=== PATIENT | female | born 1945 | race Caucasian/White ===

== ENCOUNTER 2020-09-01 19:40 | Observation (INO) | payer MEDICARE, BC, SELFPAY ==
[2020-09-01] VITALS (7 sets, daily range): BP systolic 129–153; BP diastolic 67–88; PULSE 87–95; RESP 16–20; TEMP 36.2; O2SAT 95–100
--- NOTE | ~2020-09-01 | CT_ITS ---
EXAMINATION: CT lumbar spine wo con DATE: 09/01/2020 20:13 INDICATION: Low back pain TECHNIQUE: Computed tomography (CT) of the lumbar spine was performed without intravenous contrast. T he dose-length product (DLP) was 1329.96 mGy-cm. Iterative reconstruction was used. COMPARISON: MRI, 05/10/2019 FINDINGS: There is moderate to severe loss of intervertebral disc space height throughout the lumbar spine. The vertebral body heights are maintained. There are 3 mm of chronic anterolisthesis of L5 on S1. There is no fracture. There is moderate to severe facet osteoarthritis throughout the lumbar spin e. The paravertebral soft tissues are normal. Although limited by motion artifact, there appears to b e a rim calcification in left upper quadrant which could reflect prior left adrenal trauma. IMPRESSION: 1. Severe lumbar spondylosis without acute findings or significant interval change. Reviewed, dictated and finalized at location A. IMPRESSION: 1. Severe lumbar spondylosis without acute findings or significant interval alis nge.
--- NOTE | ~2020-09-01 | XR_ITS ---
EXAMINATION: XR hip RT 2V w AP pelvis INDICATION: Right hip pain TECHNIQUE: AP view of the pelvis and two views of the right hip are obtained. COMPARISON: 07/20/2016 FINDINGS: No fracture is identified. There is advanced osteoarthritis of the right hip with interval worsening since the comparison examination. There is moderate left hip osteoarthritis. Right nephroli thiasis is noted. A moderate volume of colonic stool is present. IMPRESSION: 1. Advanced osteoarthritis of the right hip, with interval worsening, but no acute abnormality identi fied. Reviewed, dictated and finalized at location A. IMPRESSION: 1. Advanced osteoarthritis of the right hip, with interval worsening, but no ac ho-chunk abnormality identified.
--- NOTE | 2020-09-01 19:54 | ED.LOWEXIN ---
HPI - Extremity Injury (Lower) General Chief Complaint: Extremity Injury, Lower Stated Complaint: r hip pain Time Seen by Provider: 09/01/20 19:41 Source: RN notes reviewed History of Present Illness HPI Narrative: Patient presents emergency department from home for lower back pain. Patient states that she has a history of a bag right hip that she is followed by Dr. Calhoun for orthopedics and is scheduled to get a hip replacement. She states that she has had progressive pain in the right hip with pain coming down her lower back into her buttocks and down her right leg with pain described as burning. She states he is also began to notice pain in her left leg. She states that secondary to this today she was unable to get up and ambulate. She states pain is in the bilateral lower back and she does feel like she is favoring her left leg because the right leg is been hurting so much. She is on diclofenac and gabapentin at home with no relief which she has been taking. She denies any new trauma or injury she denies any fevers or chills chest pain shortness breath abdominal pain nausea or vomiting numbness or tingling of the extremities bowel or bladder incontinence or any other symptoms. Related Data Home Medications Medication Instructions Recorded Confirmed metronidazole 1 % topical gel 1 applic TOPICAL DAILY 12/16/19 Allergies Allergy/AdvReac Type Severity Reaction Status Date / Time No Known Allergies Allergy Unknown Verified 09/01/20 14:40 Review of Systems Review of Systems: Narrative: Gen.: Denies fevers or chills ENT: Denies congestion Respiratory: Denies shortness of breath or cough CV: Denies chest pain or palpitations GI: Denies abdominal pain nausea, emesis or diarrhea denies bowel or bladder incontinence Musculoskeletal: See HPI Neuro: Denies numbness, tingling, weakness or focal weakness Skin: Denies rash Except as documented, all other systems reviewed and negative PMF Past Medical History Medical History Colon polyp Essential (primary) hypertension H/O: gout Hypothyroidism, unspecified Lumbar radiculopathy Lymphedema Pre-diabetes Primary osteoarthritis of right hip Social History Social History Smoking status: Never smoker Second hand tobacco smoke exposure: No Alcohol intake: never Gender identity (if verbalized by the patient): Female Sexual Orientation (if Verbalized by the Patient): Straight or Heterosexual Exam Narrative: Exam Narrative: APPEARANCE: No acute distress, nontoxic, resting in bed EYES: EOMI HEENT: Normocephalic, atraumatic, OMM RESPIRATORY: No respiratory distress Clear to auscultation bilaterally with no rhonchi wheezing or rales. CARDIOVASCULAR: Regular rate and rhythm without murmurs rubs or gallops. ABDOMINAL: Soft, nontender, nondistended, no rebound or guarding MUSCULOSKELETAl: Moves all extremities. No clubbing, cyanosis 2+ edema the bilateral lower extremities, bilateral dorsalis pedis pulse 2+ Back: No midline thoracic lumbar tenderness palpation, tender palpation bilateral paravertebral muscles L3-5 and bilateral piriformis region NEURO: Awake and alert. Following commands, speech normal, no focal deficits muscle strength 5 out of 5 in the bilateral lower extremities SKIN:: Warm, dry. No rashes lesions or abrasions PSYCHIATRIC: Normal affect/mood, Course Course Emergency Course: Patient is feeling better following medication able to get up and ambulate in ED with no difficulty Discussed with patient results of workup and diagnosis. Discussed need for follow-up with primary care, proper use of medication, and reasons to return to the emergency department. Patient understands and agrees to current treatment plan patient is scheduled to see Dr. Ledesma tomorrow we will prescribe short course of steroids and [place] for pain. The patient does live at home by
[2020-09-01] MEDS: methylPREDNISolone SOD SUCC 125 MG VIAL IV PUSH (20:48)
[2020-09-01] MEDS: MORPHINE SULFATE (*CRX) 2 MG/ML INJ IV PUSH (21:51)
--- NOTE | 2020-09-01 23:05 | PC.NURSE ---
Patient states she is unable to walk and is requesting rehab. EDP [facility] notified.
--- NOTE | 2020-09-02 00:30 | ADMGEN ---
This patient, Emani Simms, was admitted to 3 Med Surg Room 315-01. Patient/family oriented to hospital policies and general routines including ID bracelet, bed and alarms, visiting hours, pain management, procedures, bathroom and other care routines, personal items, smoking policy, room service/diet, and visiting hours. Valuables list has been completed. Information on how to activate the Rapid Response Team has been discussed. Patient/Family are encouraged to report perceived risks to care and to ask questions if they do not understand what they are told or what they should do.
[2020-09-02 00:35] VITALS: BP 129/81; PULSE 95; RESP 20; TEMP 37.1; O2SAT 97; BMI 42.0
[2020-09-02 05:46] VITALS: BP 120/69; PULSE 93; RESP 16; TEMP 36.4; O2SAT 95
[2020-09-02 06:43] LABS: Basophils Percent Auto 0.1 % (0.2-1.2); Eosinophils Percent Auto 0.1 % (0-4.4); Hematocrit 39.1 % (37.0-47.0); Hemoglobin 12.9 g/dL (12.0-15.0); Immature Granulocyte Absolute 0.09 K/mm3 (0.00-0.031); Immature Granulocyte Percent A 0.8 % (0-0.5); Lymphocytes Absolute Auto 1.07 K/mm3 (0.9-3.2); Lymphocytes Percent Auto 9.6 % (18.3-44.2); Mean Corpuscular Hemoglobin 30.6 pg (26-34); Mean Corpuscular Volume 92.7 fl (80-100); Mean Platelet Volume 9.5 fl (7.4-10.4); Monocytes Absolute Auto 0.1 K/mm3 (0.1-0.6); Monocytes Percent Auto 0.6 % (2.6-8.5); Neutrophils Absolute Auto 9.9 K/mm3 (1.3-6.7); Neutrophils Percent Auto 88.8 % (45.5-73.1); Platelet Count Result 256 k/mm3 (150-375); Red Blood Count 4.22 M/mm3 (4.2-5.4); Red Cell Distribution Width 13.2 % (11.5-14.5); White Blood Count 11.2 K/mm3 (4.5-10.0)
[2020-09-02 06:53] LABS: Anion Gap 8 mmol/L (8-16); Blood Urea Nitrogen 19 mg/dL (7-17); Calcium 9.8 mg/dL (8.4-10.2); Carbon Dioxide 31 mmol/L (22-30); Chloride 101 mmol/L (98-107); Estimated CRCL calculation 65 ml/min; Estimated Glomerular Filt Rate > 60; Glucose 159 mg/dL (65-105); Potassium 4.5 mmol/L (3.4-5.0); Sodium 140 mmol/L (137-145)
[2020-09-02 14:00] VITALS: BP 104/56; PULSE 99; RESP 20; TEMP 37.3; O2SAT 96
[2020-09-02] MEDS: HYDROcodone/acetaminophen (*CRX) 7.5-325 MG TABLET 1 TAB PO (16:31)
--- NOTE | 2020-09-02 16:54 | PM.IMHP ---
H&P: HPI History of Present Illness Date/Time: 09/02/20 16:54 Chief complaint: Intractable back pain Narrative: Emani Simms is a 74 year old female admitted for intractable back and R hip pain. Pt fell at home was bearing weight on her left hip which suddenly gave way. He right hip is bone or bone and she is due for surgery once she loses more weight, under Dr Cox. Pt is having severe pain in her right hip which varies from 10/10 to zero depending on if she is putting weight on it. Pt is also receiving back injections from Dr Humphrey in [facility]. Other medical problems prediabetes and hypothyoidism and gout. Review of Systems Review of Systems: All systems reviewed & are unremarkable except as noted in HPI and below Constitutional: Constitutional: Denies headache(s) and Denies malaise Cardiovascular: Cardiovascular: Denies no additional cardiovascular complaints Respiratory: Respiratory: Denies no additional respiratory complaints Gastrointestinal: Gastrointestinal: Denies no additional gastrointestinal complaints Musculoskeletal: Musculoskeletal: Reports back pain Comments: R hip pain Neurologic: Denies confusion, Denies dizziness, Denies syncope, Denies headache(s), Denies paresthesias and Denies weakness Psychiatric: Psychiatric: Denies no additional psychiatric complaints PMFSH Past Medical History Medical History Colon polyp Essential (primary) hypertension H/O: gout Hypothyroidism, unspecified Lumbar radiculopathy Lymphedema Pre-diabetes Primary osteoarthritis of right hip Surgical History Surgical History H/O colonoscopy with polypectomy (~06/2018) Family History Family History Mother Carcinoma of colon Mother Diabetes mellitus Mother Family history of arthritis Father Malignant neoplasm of prostate Sibling Hypertension Mother Hypertension Other Cerebrovascular accident Family history of coronary artery disease Family history of gout Family history of heart disease in male family member before age 55 Family history of malignant neoplasm Family history of tuberculosis Social History Social History Smoking status: Never smoker Second hand tobacco smoke exposure: No Alcohol intake: current Substance use: never Gender identity (if verbalized by the patient): Female Sexual Orientation (if Verbalized by the Patient): Straight or Heterosexual Spiritual care concerns: No Meds Home Medications and Allergies Home Medications Medication Instructions Recorded Confirmed Type levothyroxine 100 mcg tablet 100 mcg PO DAILY #90 tablet 10/13/19 09/02/20 Rx nystatin 100,000 unit/gram topical 1 applic TOPICAL BID #60 gm 12/16/19 09/02/20 Rx powder losartan 50 mg tablet 50 mg PO DAILY #90 tablet 08/05/20 09/02/20 Rx allopurinol 100 mg PO DAILY 09/02/20 09/02/20 History diclofenac sodium 50 mg PO BID 09/02/20 09/02/20 History gabapentin 600 mg PO HS 09/02/20 09/02/20 History [id number]-[id number]-FA-vit K 1 tablet PO DAILY 09/02/20 09/02/20 History [Adults Multivitamin] omega-3 fatty acids [Fish Oil] 1,000 mg PO DAILY 09/02/20 09/02/20 History Allergies Allergy/AdvReac Type Severity Reaction Status Date / Time No Known Allergies Allergy Unknown Verified 09/01/20 14:40 Vital Signs Vital Signs - 24 hr 09/01/20 19:50 09/01/20 21:01 09/01/20 21:18 Temperature 36.2 C L Pulse Rate 95 90 Respiratory Rate 16 16 Blood Pressure 153/74 H 148/74 H Pulse Oximetry 95 100 09/01/20 22:21 09/01/20 22:49 09/01/20 23:55 Temperature 36.2 C L Pulse Rate 92 87 Respiratory Rate 18 16 Blood Pressure 139/84 149/88 H Pulse Oximetry 98 100 09/02/20 00:35 09/02/20 05:46 09/02/20 14:00 Temperature 37.1 C 36.4 C L 37.3 C Pulse
[2020-09-02] MEDS: DICLOFENAC SOD 25 MG TABLET.EC 50 MG PO (16:56)
[2020-09-02] MEDS: TOLNAFTATE 1% POWDER 45 GM BTL 1 APPLIC TOPICAL (20:29)
[2020-09-02] MEDS: GABAPENTIN 300 MG CAPSULE 600 MG PO (20:29)
[2020-09-02 22:00] VITALS: BP 100/54; PULSE 94; RESP 16; TEMP 37; O2SAT 95
[2020-09-03] MEDS: HYDROcodone/acetaminophen (*CRX) 7.5-325 MG TABLET 1 TAB PO (03:35)
[2020-09-03] MEDS: LEVOTHYROXINE SODIUM 100 MCG TABLET PO (05:44)
[2020-09-03] MEDS: methylPREDNISolone (MEDROL) DOSEPACK 4 MG TABLETS PO ×2 (05:44→11:39)
[2020-09-03 06:00] VITALS: BP 98/58; PULSE 76; RESP 20; TEMP 36.6; O2SAT 94
[2020-09-03] MEDS: DICLOFENAC SOD 25 MG TABLET.EC 50 MG PO (08:34)
[2020-09-03] MEDS: ENOXAPARIN 40 MG/0.4 ML SYRINGE SUB-Q (08:34)
[2020-09-03] MEDS: allopurinoL 100 MG TABLET PO (08:34)
[2020-09-03] MEDS: LOSARTAN POTASSIUM 50 MG TABLET PO (08:35)
[2020-09-03] MEDS: OMEGA 3 POLYUNSAT FATTY ACIDS 1 GM CAP PO (08:35)
[2020-09-03] MEDS: MULTIVITAMINS /C LUTEIN (CENTRUM SILVER) TABLET *BKC 1 TAB PO (08:35)
[2020-09-03] MEDS: TOLNAFTATE 1% POWDER 45 GM BTL 1 APPLIC TOPICAL (08:36)
--- NOTE | 2020-09-03 11:09 | PM.DS ---
DS: Admitting Diagnosis Admitting Diagnosis Admitting Diagnosis: Intractable back pain DS: Discharge Diagnosis Discharge Diagnosis (1) Low back pain: Code(s): M54.5 - Low back pain Status: Acute Assessment and Plan: Pt is on norco, diclofenac and medrol dose pack. Pt was given morphine in the hospital for severe pain Lumbar ct spine shows severe lumbar spondylosis (2) Acute pain of right hip: Code(s): M25.551 - Pain in right hip Status: Acute Assessment and Plan: See above. Pt to have physical theraphy in the hospital, did well stable for discharge. hip xray shows severe OA (3) Pre-diabetes: Code(s): R73.03 - Prediabetes Status: Acute Assessment and Plan: Pt is on oral steroids can raise glucose (4) Hypothyroidism, unspecified: Code(s): E03.9 - Hypothyroidism, unspecified Status: Acute Assessment and Plan: Continue levothyroxine (5) Essential (primary) hypertension: Code(s): I10 - Essential (primary) hypertension Status: Acute Assessment and Plan: Continue losatan (6) H/O: gout: Code(s): Z87.39 - Personal history of other diseases of the musculoskeletal system and connective tissue Status: Inactive DS: Summary Time Spent with Patient Time attestation: Total time spent providing and/or coordinating discharge services:40 minutes on day of dischrage Exam Const: General: other (obese) HENMT: Head: normocephalic Eyes: General: appearance normal, both eyes and all related structures Pupils: Equal, round and reactive pupils present Neck: Neck: supple Chest: Chest palpation & inspection: normal inspection of the chest Resp: Effort & Inspection: normal respiratory effort Auscultation: clear to auscultation bilaterally Cardio: Jugular venous distension: no JVD Rhythm: regular rhythm Heart sounds: S1 normal heart sound present and S2 normal heart sound present GI: Inspection: normal to inspection Auscultation: normal bowel sounds : General: Yes no CVA tenderness Back/Spine/Pelvis: Back: no CVA tenderness Skin: General skin exam: normal color and dry skin Neuro: General: No confusion Cranial nerves: Yes CN's II-XII intact bilaterally and Yes Equal, round and reactive pupils present Cognition (Neuro): normal cognition Speech: normal speech Extrem: Other: TTP over R hip limited ROM, not assess standing good pulses good sensation Psych: Appearance: grossly normal Mental Status: mental status grossly normal Discharge Plan Discharge Attending physician on discharge: Dayan Nguyen Discharging Clinician: Dayan Nguyen Anticipated Discharge Date/Time: 09/03/20 11:04 Patient Disposition: Home, Self-Care Activity: as tolerated Diet: heart healthy and low fat Discharge Instructions: Pt to follow with Dr COHEN orthopedics in 1 months time Patient Instructions: Antibiotic Form, Pain Management (DC) Stand Alone Forms: General Discharge Information Follow-up/Referrals: lamar cohen [Other] (FOLLOW UP IN 1 monthstime please make apt with his office before pt is discharged ) Fabienne Beasley MD [Primary Care Provider] - Discharge Medications: New hydrocodone-acetaminophen 7.5-325 mg Tablet 1 tab PO Q6H PRN (Reason: Pain Rated 4-6) Qty: 20 RF: 0 methylprednisolone 4 mg Tablets,Dose Pack 8 mg PO 0630 Qty: 21 RF: 0 Continued nystatin 100,000 unit/gram powder 1 applic TOPICAL BID Qty: 60 RF: 3 allopurinol 100 mg tablet 100 mg PO DAILY RF: 0 gabapentin 300 mg capsule 600 mg PO HS RF: 0 diclofenac sodium 50 mg tablet,delayed release (DR/EC) 50 mg PO BID RF: 0 Fish Oil Capsule 1,000 mg PO DAILY RF: 0 Adults Multivitamin 18 mg iron-400 mcg-25 mcg Tablet 1 tablet PO DAILY RF: 0 levothyroxine 100 mcg tablet 100 mcg PO DAILY Qty: 90 RF: 3 losartan 50 mg tablet 50 mg PO DAILY Qty: 90 RF: 0 Date of
== END 2020-09-03 14:10 | disposition home or self-care (01) ==
LOC: ANHED 23:11 → ANH3MEDSUR 09-02 04:46
PROVIDERS: Admitting Provider Internal Medicine; Emergency Provider Emergency Medicine; PCP Family Medicine; Visit Provider Family Medicine
DX: M54.5 Low back pain (principal); M25.551 Pain in right hip; R73.03 Prediabetes; E03.9 Hypothyroidism, unspecified; I10 Essential (primary) hypertension; M10.9 Gout, unspecified; M16.11 Unilateral primary osteoarthritis, right hip; M47.816 Spondylosis without myelopathy or radiculopathy, lumbar region
CPT/HCPCS: 36415; 72131; 73502; 80048; 85025; 96372; 96374; 96375; 97161; 97165; 99285; A9270; G0378; J0131; J1650; J2270; J2930

== ENCOUNTER → 2020-09-30 16:50 | Outpatient (CLI) | payer MEDICARE, BC, SELFPAY ==
--- NOTE | ~2020-09-30 | MR_ITS ---
EXAMINATION: MR lumbar spine wo con DATE: 09/30/2020 17:51 INDICATION: Low back pain. Right-sided sciatica. TECHNIQUE: Magnetic resonance imaging (MRI) of the lumbar spine was performed without intravenous con trast. Sequences included sagittal T2-weighted FSE, sagittal T2-weighted FS FSE, sagittal T1-weighted FSE, and axial T2-weighted FSE. COMPARISON: Lumbar spine MRI 05/10/2019 FINDINGS: There is 12 degrees levoscoliosis of lumbar spine. There is 3 mm anterolisthesis of L5 on S 1. There is mild chronic anterior wedging of T11 vertebral body. There is moderately decreased disc h eight at L1-L2 and severely decreased disc height from L2-L3 through L5-S1. The distal spinal cord si gnal intensity is normal. The conus medullaris is at L1-L2. The following disc levels are specificall y discussed: L1-L2: The disc is bulging and has an annular fissure. There is severe right and mild left facet join t osteoarthritis. There is moderate bilateral neural foraminal stenosis. There is mild central canal stenosis. L2-L3: The disc is bulging and has an annular fissure. There is severe bilateral facet joint osteoart hritis. There is moderate right and mild left neural foraminal stenosis. There is mild central canal stenosis. L3-L4: The disc is bulging and has an annular fissure. There is severe bilateral facet joint osteoart hritis. There is moderate bilateral neural foraminal stenosis. There is severe central canal stenosis . L4-L5: The disc is bulging and has an annular fissure. There is severe bilateral facet joint osteoart hritis. There is moderate bilateral neural foraminal stenosis. There is mild central canal stenosis. L5-S1: The disc is bulging and has an annular fissure. There is severe bilateral facet joint osteoart hritis. There is mild right and moderate left neural foraminal stenosis. There is mild central canal stenosis. IMPRESSION: 1. Severe lumbar spondylosis, worsened from 05/10/2019. Reviewed, dictated and finalized at location A. TS SIFTER
== END ==
PROVIDERS: PCP Family Medicine; Visit Provider Orthopaedic Surgery
DX: M47.896 Other spondylosis, lumbar region (principal)
CPT/HCPCS: 72148

== ENCOUNTER 2021-02-16 11:50 | Outpatient (RCR) | payer OTHER, MEDICARE, BC, SELFPAY ==
[2021-02-16 12:30] VITALS: BMI 41.7
== END 2021-05-02 08:06 | disposition home or self-care (01) ==
LOC: ANHWOC 11:50
PROVIDERS: PCP Family Medicine; Visit Provider Surgery
DX: T81.31XD Disruption of external operation (surgical) wound, not elsewhere classified, subsequent encounter (principal)
CPT/HCPCS: 99213; G0463

== ENCOUNTER → 2022-06-16 07:06 | Outpatient (CLI) | payer MEDICARE, BC, SELFPAY ==
--- NOTE | ~2022-06-16 | XR_ITS ---
XR shoulder RT min 2V DATE: 06/16/2022 08:10 INDICATION: Right shoulder pain TECHNIQUE: 4 views COMPARISON: None FINDINGS: There is severe joint space narrowing and spurring of the right glenohumeral joint. Mild degenerative spurring at the right acromioclavicular joint. No fracture, dislocation, periosteal reaction or bone destruction. IMPRESSION: Severe right glenohumeral osteoarthritis Mild degenerative change at right acromioclavicular joint Reviewed, dictated and finalized at location B.
--- NOTE | ~2022-06-16 | XR_ITS ---
XR clavicle RT DATE: 06/16/2022 08:10 INDICATION: Pain TECHNIQUE: AP and angled AP views COMPARISON: None FINDINGS: There is prominent joint space narrowing and severe spurring at the glenohumeral joint cons istent with severe osteoarthritis. There is mild degenerative spurring at the right acromioclavicular joint. No fracture or dislocation, periosteal reaction or bone destruction of the right clavicle. IMPRESSION: Mild degenerative change right acromioclavicular joint Severe osteoarthritic change and spurring at the right glenohumeral joint Reviewed, dictated and finalized at location B.
== END ==
PROVIDERS: PCP Family Medicine; Visit Provider Family Medicine
DX: M95.8 Other specified acquired deformities of musculoskeletal system (principal); M19.011 Primary osteoarthritis, right shoulder
CPT/HCPCS: 73000; 73030

== ENCOUNTER 2024-04-29 10:31 | Outpatient (CLI) | payer MEDICARE, BC, SELFPAY ==
--- NOTE | ~2024-04-29 | XR_ITS ---
Left Shoulder Technique: AP and scapular Y views were obtained. Clinical History: Pain Findings: No fracture or dislocation is seen. Osseous alignment is anatomic. There is advanced glenoh umeral joint degenerative change, joint space narrowing, subchondral cystic change/sclerosis, and lar ge inferomedial humeral head osteophyte. There is mild AC joint degenerative change. Soft tissues are unremarkable. Impression: Severe glenohumeral joint degenerative change. Mild AC joint degenerative change. Reviewed, dictated and finalized at location . Impression: Severe glenohumeral joint degenerative change. Mild AC joint degenerative change.
--- NOTE | ~2024-04-29 | XR_ITS ---
Right Shoulder Technique: AP and scapular Y views were obtained. Clinical History: Pain Findings: No fracture or dislocation is seen. There is severe glenohumeral joint degenerative change. There is marked joint space narrowing with reactive sclerosis and large inferomedial humeral head os teophyte. There is mild AC joint degenerative change.. Soft tissues are unremarkable. Impression: Severe glenohumeral joint degenerative change, as detailed above. Mild AC joint degenerative change. Reviewed, dictated and finalized at location M. Impression: Severe glenohumeral joint degenerative change, as detailed above. Mild AC joint degenerative change.
== END 2024-04-29 10:32 | disposition home or self-care (01) ==
LOC: ANHIMG 10:33
PROVIDERS: PCP Family Medicine; Visit Provider Orthopaedic Surgery
DX: M19.012 Primary osteoarthritis, left shoulder (principal); M19.011 Primary osteoarthritis, right shoulder
CPT/HCPCS: 73030

== ENCOUNTER 2024-05-21 14:59 | Outpatient (CLI) | payer MEDICARE, BC, SELFPAY ==
--- NOTE | ~2024-05-21 | XR_ITS ---
XR hip RT 2V w AP pelvis Ordering provider: OSWALD Finn History: . M16.11 - Unilateral primary osteoarthritis, right hip . Comparison: September 01, 2020 FINDINGS: BONES: No acute fracture or dislocation. Sclerotic changes in the left impression, left femur and lef t iliac vein. HIP JOINT SPACES: Severe osteoarthritic changes bilaterally more on the right side. SACROILIAC JOINT SPACES/LUMBAR SPINE: Bilateral sacroiliacs. Mild degenerative changes of the visuali zed lower lumbar spine. PUBIC SYMPHYSIS: Normal. SOFT TISSUES: Normal. IMPRESSION: No acute osseous abnormality pelvis and right hip. Severe bilateral hip osteoarthritic changes more on the right side. Sclerotic changes in the bones and the left side of the pelvis and left femur. Reviewed, dictated and finalized at location A.
== END 2024-05-21 15:00 | disposition home or self-care (01) ==
PROVIDERS: PCP Family Medicine; Visit Provider Physician Assistant Surgical
DX: M16.11 Unilateral primary osteoarthritis, right hip (principal)
CPT/HCPCS: 73502

== ENCOUNTER 2025-03-18 07:52 | Outpatient (CLI) | payer MEDICARE, BC, SELFPAY ==
--- NOTE | 2025-03-18 07:55 | ECHO_ITS ---
Patient Info Name: Emani Simms Age: 79 years : 1945 Gender: Female Ht: 60 in Wt: 197 lbs BSA: 1.99 m2 HR: 59 bpm BP: 129 / 82 mmHg Heart Rhythm: Atrial Fibrillation Technical Quality: Fair Exam Date: 03/18/2025 8:12 AM Exam Location: Echo Lab Patient Status: Outpatient Admit Date: 03/18/2025 Staff Ordering Physician: Fabienne Beasley MD Manager Foreign: Linda Del Valle RDCS Attending Provider: Fabienne Beasley MD Referring Physician: Ramos SUN; Exam Type: CA echo doppler color flow Study Info Indications I48.91 - Unspecified atrial fibrillation Complete two-dimensional, color flow and Doppler transthoracic echocardiogram is performed. Summary 1. Complete two-dimensional, color flow and Doppler transthoracic echocardiogram is performed. 2. Left ventricular chamber dimension is normal. 3. Left ventricular systolic function is normal, estimated at 60-65%. 4. There is mild concentric increased left ventricular wall thickness. 5. The left ventricular diastolic function is normal. 6. E/e' 9 is minimally elevated. 7. Atrial fibrillation. 8. Right ventricular chamber dimension is mildly enlarged. 9. Left atrial chamber dimension is moderately enlarged. 10. There is mild aortic valve sclerosis. 11. There is mild mitral valve regurgitation. 12. There is trace tricuspid valve regurgitation. 13. No pulmonary hypertension, estimated pulmonary arterial systolic pressure is 30 mmHg. 14. There is trace pulmonic regurgitation. Left Ventricle E/e' 9 is minimally elevated. Atrial fibrillation. Left ventricular chamber dimension is normal. Left ventricular systolic function is normal, estimated at 60-65%. There is mild concentric increased left ventricular wall thickness. The left ventricular diastolic function is normal. Right Ventricle Right ventricular systolic function is normal and with normal TAPSE 2.1 cm. Right ventricular chamber dimension is mildly enlarged. Left Atria Left atrial chamber dimension is moderately enlarged. Right Atria Right atrial chamber dimension is normal. Aortic Valve The aortic valve is trileaflet. There is mild aortic valve sclerosis. There is no aortic valve stenosis. There is no aortic valve regurgitation. Pulmonic Valve There is trace pulmonic regurgitation. Mitral Valve There is no mitral valve stenosis. There is mild mitral valve regurgitation. Tricuspid Valve There is trace tricuspid valve regurgitation. No pulmonary hypertension, estimated pulmonary arterial systolic pressure is 30 mmHg. Pericardium/Pleural There is no pericardial effusion. Inferior Vena Cava Normal inferior vena cava with >50% collapse upon inspiration consistent with normal right atrial pressure, 5 mmHg. Aorta The aortic root size at the sinus of Valsalva is normal. Left Ventricular Outflow Tract Name Value Normal LVOT 2D LVOT Diameter 2.2 cm LVOT Doppler LVOT Peak Gradient 2 mmHg LVOT Mean Gradient 1 mmHg LVOT VTI 15 cm LVOT VTI/AV VTI Ratio 0.6 LVOT Stroke Volume 57 ml LVOT CO 12.5 l/min LVOT CI 6.3 l/min/m2 Pulmonic Valve Name Value Normal PV Doppler PV Peak Gradient 2 mmHg Mitral Valve Name Value Normal MV Doppler MV Decel Clayton 650 cm/s2 MV PHT 41 ms MV Area (PHT) 5.3 cm2 4.0-5.0 MV Diastolic Function MV E Peak Velocity 93 cm/s MV A Peak Velocity 2 cm/s MV E/A 44.6 MV Decel Time 143 ms MV Annular TDI MV E/e' (Septal) 11.5 <=8.0 MV E/e' (Lateral) 7.7 <=8.0 MV E/e' (Average) 9.6 Tricuspid Valve Name Value Normal TV Regurgitation Doppler TR Peak Velocity 250 cm/s TR Peak Gradient 25 mmHg Estimated PAP/RSVP RA Pressure 5 mmHg <=5 PA Systolic Pressure 30 mmHg <36 RV Systolic Pressure 30 mmHg <36 Aorta Name Value Normal Ascending Aorta Ao Root Diameter (MM) 3.4 cm Ao Root Diam Index (MM) 1.7 cm/m2 Aortic Valve Name Value Normal AV Doppler AV Peak Velocity 110 cm/s AV Peak Gradient 4 mmHg AV Mean Gradient 3 mmHg AV VTI 27 cm AV Area (Cont Eq VTI) 2.1 cm2 >=3.0 AV Area (Cont Eq Brayden) 2.7 cm2 AV Regurgitation 2D LVOT Area 3.7 cm2 Ventricles Name Value Normal LV Dimensions 2D/MM IVS Diastolic Thickness (2D) 1.1 cm 0.6-1.0 LVID Diastole (2D) 5.3 cm 3.8-5.2 LVIW Diastolic Thickness (2D) 1.0 cm 0.6-0.9 LVID Systole (2D) 3.6 cm 2.2-3.5 LVOT Diameter 2.2 cm LV Mass (2D Cubed) 210.19 g 67.00-162.00 LV Mass Index (2D Cubed) 105 g/m2 43-95 Relative Wall Thickness (2D) 0.37 LV Fractional Shortening/Ejection Fraction 2D/MM LV Fractional Shortening (2D) 32 % 27-45 LV EF (2D Teicholz) 60 % 54-74 LV Diastolic Volume (4C MOD) 78 ml LV EF (4C MOD) 66 % LV Diastolic Volume (2C MOD) 65 ml LV EF (2C MOD) 53 % LV Diastolic Volume (BP MOD) 72 ml 46-106 LV Diastolic Volume Index (BP MOD) 36 ml/m2 29-61 LV Systolic Volume (BP MOD) 29 ml 14-42 LV Systolic Volume Index (BP MOD) 15 ml/m2 8-24 LV EF (BP MOD) 59 % 54-74 LV Diastolic Length (4C) 6.6 cm LV Systolic Length (4C) 5.7 cm LV Stroke Volume (4C MOD) 52 ml RV Dimensions 2D/MM RVID Diastole (2D) 4.4 cm 2.5-3.5 Atria Name Value Normal LA Dimensions LA Dimension (MM) 4.4 cm 2.7-3.8 LA Volume (4C A-L) 65 ml LA Volume (BP A-L) 59 ml RA Dimensions RA Area (4C) 21.7 cm2 <=18.0 Report Signatures
--- OUTSIDE RECORDS SUMMARY | 2025-03-18 07:57 | XMS_ITS | Continuity of Care Document ---
Author Organization [facility] Address [address] [place] [address] Phone Care Team Providers Care Drafter Name Role Phone Nava Yonathan Unavailable Unavailable Allergies, Adverse Reactions, Alerts Substance Reaction Status Criticality No Known Allergies Active No Inform ation Medications Medication Instructions Dosage Effective Dates (start - stop) Status Comments gabapentin 300 mg capsule - Active diclofenac sodium 75 mg tablet,delayed release - Active losartan 50 mg tablet - Acti ve levothyroxine 100 mcg tablet - Active allopurinol 100 mg tablet - Active Procedures Procedure Date Office/outpatient visit,[facility] BMI Documented Above Normal Limit F/U Pl an Doc Office[facility]outpatient visit,[facility] 2023 Advance Directives Directive Yes / No Effective Date File Name No Information Encounters Encounter Description Practice Location Reason(s) For Visit Diagnoses Date Provider Providers Copied on Encounter [facility], [address] [place] [address], [id number], [place] [phone] [facility] No Information 4 Nava Sarkaroph er. [address] [place] [address], [place] [address], [place], [place], [id number] , [place]. tel: [phone] Office/outpat ient visit, [facility], [address], [id number], [place] tel:[phone] [facility] right hip (chief complaint) Unilateral primary osteoarthritis , right hip [address], [address], [place], [place], [id number] , . tel: [phone] Referring Provider: Yonathan Morse, [address], [place], [address]. tel:[phone] Office/outpat ient visit,[place] [place] [facility], [address], [place], [place], [id number], [phone] [facility] Right hip (chief complaint) Pain in right hipIdiopathic aseptic necrosis of right femur [address], [address], [place], [place], [id number] , . tel: [phone] Referring Provider: Rajesh Lewis, [address], [place], [address]. tel:[phone] Family History Family Member Type Diagnosis Age At Onset Mother Problem (finding) Diabetes Father Problem (finding) Cancer, unknown Father Problem (finding) Stroke Mother Problem (finding) Cancer, unknown Mother Problem (finding) Osteoarthritis Immunizations Vaccine Date Status Comments Pneumo (2 yrs or older)(PPV) not administered Note: pt declined ; Source: Source Unspecified influenza, injectable, quadrivalent, (3 years or older) not administered Note: pt declined ; Source: Source Unspecified Payers Payer name Insurance type Covered democrat ID Authoriza tion(s) [place] W[place] Part B MB [id number] [facility] [id number] Social History Type Description Quantity Date Captured Comments Alcohol Use Details Unknown Caffeine Use Details Unknown Tobacco Use Status No Information Smoking Status No Information Sex Female Chief Complaint And Reason For Visit No Information Reason For Referral Reason For Referral No Information History Of Present Illness Encounter Date Complaint History Of Prese nt Illness hip Emani is a 78 year=old female who presents to the office for evaluation of right hip pain. She presents with her family for evaluation of her right hip she has had 100 pound weight loss last several years she reports having undergone an ankle fracture with repair by Dr. Calhoun about 4-5 years ago. Reports using a wheelchair and a walker after this and essentially has been using it ever since. She does live independently. She does not walk much she uses a wheelchair, and uses a walker to walk about 30 feet. She is able to drive and transferred in and out of her chair. She is extremely debilitated but is very pleasant.She is seated in a wheelchair at today's visit with her family. She is referred to me for evaluation of complex hip arthroplasty on the right side. She has severe degenerative disease of the spine, she has severe degenerative disease of the right hip with erosion. She states she has bilateral shoulder issues and will repeat could require bilateral shoulder surgery. She has not able to use a walker well. Her family has many questions about a hip arthroplasty. She wishes to regain significant ambulation, and possibly use a cane again..Radiographs from 05/21/2024 are reviewed. These show severe erosive arthritis of the right hip there is loss of the acetabular bone stock superiorly approximately 50% of the superior acetabular dome has been reabsorbed. The femoral head is cystic and has also been reabsorbed. There is a leg length inequality. There is significant lumbar osteoarthritisImpression erosive osteoarthritis of the right hip with approximately 2 cm of superior migration and approximately 50% of acetabular bone loss Right hip Emani present s to the office for evaluation of her chronic right hip pain. Her pain has been present for more years than she can remember. She sustained a fall and an ankle fracture in 2018 and indicated that she did develop some hip pain around that time, however she was diagnosed with spinal stenosis in 2020 and thought that this was the problem. She has been using a walker for ambulation since August 2020. She is now using a wheelchair intermittently at home to help with pain control and ambulation due to the severity of the pain in her left hip. Denies injury, trauma, or fall within the last year. 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 She presented to the office of Dr. Flores who referred her to our office due to the complexity of the needed surgical procedure. She is experiencing weakness and limping. She rates her pain at a 10 out of 10 with a sharp constant nature. It is worsened with sitting and ambulation. She is utilizing diclofenac gabapentin and rest for pain control with minimal efficacy. She is wheelchair-bound at today's office visit. Functional Status Date Functional Assessmen t No Information Instructions Date Instruction Additional Infor yanira Surgical interventio n, with posterior approach and location at [facility] were reviewed in depth, as was the anticipated postop recovery course. She indicates that she does have a significant amount of family available for assistance and does not feel that she would be unable to transition immediately home after surgery. Postoperative care including pain medication management, DVT and PE management, physical therapy and anticipated length of recovery were reviewed. Risks of surgery including, but not limited to, infection, DVT or pulmonary embolism, component failure and failure to control pain, nerve injury and were reviewed. Emani demonstrates appropriate understanding and wishes to proceed with posterior total hip arthroplasty. She will be placed on Dr. Yonathan Vick surgical schedule at [facility], as well as scheduled for an intraoffice presurgical evaluation. Prescription for Tylenol No. 4 with codeine will be sent to her pharmacy as she is intolerant of tramadol. She was advised that this is a one-time prescription to be filled to get her to surgery, and she will continue the use of diclofenac and gabapentin as needed. She will add inxp-ivs-wnpflis NSAIDs and analgesics, being advised not to consume more than 4000 mg of acetaminophen per day. She may initiate the use of topical products such as Voltaren gel or lidocaine patch. All questions were answered and concerns addressed.Dictation completed with [employer] Practice Edition software, grammatical variances and spelling errors may inadvertently occur. Related to Idiopathic aseptic necrosis of right femur Assessments Type Assessment Date No Information Patient Care Teams Name Effective Dates (start - stop) Status Members No Information
--- OUTSIDE RECORDS SUMMARY | 2025-03-18 07:57 | XMS_ITS | Clinical Summary ---
Author Organization [facility] Address [address] [place] [address] Care Team Providers Care Lump Machine Operator Name Role Phone Fabienne Beasley MD Primary Care Provider [phone] Allergies No known active allergies Medications gabapentin (NEURONTIN) 300 mg capsuleIndicati ons:Neuropathic Pain Take by mouth 2 (two) times a day 300 mg in AM 900 mg in PM 0 Active losartan (COZAAR) 50 mg tabletIndicatio ns:hypertension Take 1 tablet (50 mg total) by mouth every morning 0 Active allopurinoL (ZYLOPRIM) 100 mg tabletIndicatio ns:prevention of acute gout attack Take 1 tablet (100 mg total) by mouth every morning [address] (VOLTAREN) 50 mg EC tabletIndicatio ns:Pain Take 75 mg by mouth 2 (two) times a day 0 Active levothyroxine (SYNTHROID) 100 mcg tabletIndicatio ns:hypothyroidi sm Take 1 tablet (100 mcg total) by mouth nuclear technologist before breakfast 0 Active omega-3 fatty acids-fish oil 300-1,000 mg capsule Take 2 capsules (2 g total) by mouth every morning Active cholecalciferol , vitamin D3, (VITAMIN D3 ORAL) Take 1 capsule by mouth every morning Active multivit-minera t-jpaz-eyyyca tablet Take 1 tablet by mouth every morning Active Active Problems Problem Noted Date Diagnosed Date Primary osteoarthritis of right hip 09/10/2024 Hip pain 09/29/2020 Encounters Date Type Department Care Team Description 12/31/2024 Hospital Encounter [facility] [address] [address] Fu[address] [id number] Bert Fierro MD 12/22/2024 2:56 PM [employer] - 12/22/2024 11:59 PM [employer] Hospital Encounter [facility] [address] PERL[address] Fuentes [id number] Hip pain, right Discharge Disposition: Discharge to home or self care 12/15/2024 11:59 PM [employer] Anesthesia Event [facility] [address] [address]entes [id number] Dona Freeman NP from Last 3 Months Surgical History Surgery Date Site/Laterality Comments FLUORO GUIDED ASPIRATION OR INJECTION LARGE JOINT RIGHT 09/29/2024 Right SPINE SURGERY FRACTURE SURGERY TONSILLECTOMY Medical History Medical History Date Comments OA (osteoarthritis) HTN (hypertension) Hypothyroid A-fib (HCC) Family History Medical History Relation Name Comments Transient ischemic attack Father Anesthesia problems Neg Hx Malig Hyperthermia Neg Hx Pseudochol deficiency Neg Hx Relation Name Status Comments Father Social History Tobacco Use Types Packs/Day Years Used Date Smoking Tobacco: Never Smokeless Tobacco: Never Tobacco Cessation:Counseling Given: Not Answered AUDIT-C Answer Date Recorded Frequency of Alcohol Consumption Not on file 12/15/2024 Average Number of Drinks Not on file 025 Q3: How often do you have si x or more drinks on one occasion? Less than monthly 12/15/2024 Comments Unknown Sex and Gender Information Value Date Recorded Sex Assigned at Not on file Legal Sex Female 6:32 PM [employer] Gender Identity Not on file Sexual Orientation Not on file Obstetrics History Last Filed Vital Signs Vital Sign Reading Time Taken Comments Blood Pressure 138/60 12/15/2024 2:33 PM [employer] Pulse 67 12/15/2024 2:30 PM [employer] Temperature 36.7 C (98.1 F) 09/29/2024 1:53 PM [employer] Respiratory Rate 18 12/15/2024 2:30 PM [employer] Oxygen Saturation 100% 12/15/2024 2:30 PM [employer] Inhaled Oxygen Concentration - - Weight 89.8 kg (198 lb) 12/15/2024 2:33 PM [employer] Height 152.4 cm (5') 12/15/2024 2:33 PM [employer] Body Mass Index 38.67 12/15/2024 2:33 PM [employer] Plan of Treatment Health Maintenance Due Date Last Done Comments Depression Screening 1945 Fall Risk Assessment 1945 Hepatitis C Screening 1945 Osteoporosis Screening-Bone Density Scan 1945 DTaP/Tdap/Td Vaccine (1 - Tdap) 1958 Hepatitis B Screening 1965 Well Visit 65+ 2012 Zoster Vaccine (2 of 3) 06/04/2013 04/09/2013 Pneumococcal vaccine 65+ (2 of 2 - PPSV23) 11/07/2019 11/07/2018 Influenza Vaccine (Season Ended) 2025 12/16/19 20 Procedures Procedure Name Priority Date/Time Associated Diagnosis Comments CT HIP RIGHT WO CONTRAST Schedule Routine, Read Routine (OP Routine) 12/22/2024 3:06 PM [employer] Hip pain, right from Last 3 Months Results * CT Hip Right WO Contrast (12/22/2024 3:06 PM [employer]) Anatomical Region Laterality Modality Lower Extremities Right Computed Tomog jitendra 12/22/2024 4:25 PM [employer] Impressions 12/22/2024 4:35 PM [employer] Preoperative planning CT demonstrates severe right hip osteoarthritis with marked osseous remodeling. Dictated by: Curly Ratliff D.O. The radiology attending physician has personally reviewed this study, and had reviewed and/or edited this written report and agrees with it. Electronically signed by: John Irby M.D. Narrative 12/22/2024 4:35 PM [employer] EXAMINATION: CT HIP RIGHT WO CONTRAST HISTORY: right hip pain, pre surgical planning COMPARISON: Radiographs 09/09/2024 TECHNIQUE: Helical CT images of the hips and knees were performed without intravenous contrast according to the CAPRICE protocol. FINDINGS: In the hips, there is zlfh-ah-[id number] articulation of the right hip with marked acetabular and proximal humeral remodeling. Numerous large subchondral cysts the right hip. Anfs-bp-gjvh articulation medially in the left hip with multiple subchondral cysts. Moderate degenerative disc changes at the visualized lower lumbar spine. Severe lower lumbar facet arthropathy. Mild bilateral sacroiliac osteoarthritis. Normal pubic symphysis. No acute fracture. Asymmetric atrophy of the visualized right thigh musculature, greatest in the hamstring muscles. No pelvic lymphadenopathy or free fluid. Sigmoid diverticulosis. In the knees, there is diffuse osteopenia. Tricompartmental osteophytes bilaterally, left greater than right, with cdaq-si-tcos articulation of the left patellofemoral compartment and possibly medial compartment. Joint space narrowing of the right patellofemoral compartment. Trace left joint effusion. Vascular calcifications. Fatty atrophy of the bilateral semimembranosus muscles. Procedure Note John Irby MD - 12/22/2024 EXAMINATION: CT HIP RIGHT WO CONTRAST HISTORY: right hip pain, pre surgical planning COMPARISON: Radiographs 09/09/2024 TECHNIQUE: Helical CT images of the hips and knees were performed without intravenous contrast according to the CAPRICE protocol. FINDINGS: In the hips, there is umaa-yt-jbqt articulation of the right hip with marked acetabular and proximal humeral remodeling. Numerous large subchondral cysts the right hip. Zfev-hg-wznw articulation medially in the left hip with multiple subchondral cysts. Moderate degenerative disc changes at the visualized lower lumbar spine. Severe lower lumbar facet arthropathy. Mild bilateral sacroiliac osteoarthritis. Normal pubic symphysis. No acute fracture. Asymmetric atrophy of the visualized right thigh musculature, greatest in the hamstring muscles. No pelvic lymphadenopathy or free fluid. Sigmoid diverticulosis. In the knees, there is diffuse osteopenia. Tricompartmental osteophytes bilaterally, left greater than right, with yzpu-dr-vxsw articulation of the left patellofemoral compartment and possibly medial compartment. Joint space narrowing of the right patellofemoral compartment. Trace left joint effusion. Vascular calcifications. Fatty atrophy of the bilateral semimembranosus muscles. IMPRESSION: Preoperative planning CT demonstrates severe right hip osteoarthritis with marked osseous remodeling. Dictated by: Curly Ratliff D.O. The radiology attending physician has personally reviewed this study, and had reviewed and/or edited this written report and agrees with it. Electronically signed by: John Irby M.D. us Bert Fierro MD IMG CT PROCEDURES Fi nal Result from Last 3 Months Insurance MEDICARE [facility] MEDICARE MEDICARE [facility] Care Teams Lump Machine Operator Relationship Specialty Start Date End Date Fabienne Beasley MD PCP - General Family Medicine 09/13/20
--- OUTSIDE RECORDS SUMMARY | 2025-03-18 07:57 | XMS_ITS | Referral Summary ---
Author Organization [facility] Address [address] [place] [address] Care Team Providers Care Package Car Driver Name Role Phone Fabienne Beasley MD Primary Care Provider [phone] Encounters Date Type Department Care Team Description 12/15/2024 11:59 PM FOOD SERVICE ORDER CLERK Anesthesia Event [facility] Operating Room [address] [place] [address] Dona Freeman NP 12/31/2024 Hospital Encounter [facility] Operating Room [address] [place] [address] Bert Fierro MD 12/22/2024 2:56 PM FOOD SERVICE ORDER CLERK - 12/22/2024 11:59 PM FOOD SERVICE ORDER CLERK Hospital Encounter [facility] Imaging [address] [place] [address] Hip pain, right Discharge Disposition: Discharge to home or self care from Last 3 Months Allergies No known active allergies Medications gabapentin [...] 1 tablet (100 mcg total) by mouth early childhood aide classroom before breakfast 0 Active omega-3 fatty acids-fish oil 300-1,000 mg capsule Take 2 capsules (2 g total) by mouth every morning Active cholecalciferol , vitamin D3, (VITAMIN D3 ORAL) Take 1 capsule by mouth every morning Active multivit-minera l-ksvm-pelyam tablet Take 1 tablet by mouth every morning Active Active Problems Problem Noted Date Diagnosed Date Primary osteoarthritis of right hip 09/10/2024 Hip pain 09/29/2020 Social History Tobacco Use Types Packs/Day Years [...] on file Legal Sex Female 6:32 PM FOOD SERVICE ORDER CLERK Gender Identity Not on file Sexual Orientation Not on file Last Filed Vital Signs Vital Sign Reading Time Taken Comments Blood Pressure 138/60 12/15/2024 2:33 PM FOOD SERVICE ORDER CLERK Pulse 67 12/15/2024 2:30 PM FOOD SERVICE ORDER CLERK Temperature 36.7 C (98.1 F) 09/29/2024 1:53 PM FOOD SERVICE ORDER CLERK Respiratory Rate 18 12/15/2024 2:30 PM FOOD SERVICE ORDER CLERK Oxygen Saturation 100% 12/15/2024 2:30 PM FOOD SERVICE ORDER CLERK Inhaled Oxygen Concentration - - Weight 89.8 kg (198 lb) 12/15/2024 2:33 PM FOOD SERVICE ORDER CLERK Height 152.4 cm (5') 12/15/2024 2:33 PM FOOD SERVICE ORDER CLERK Body Mass Index 38.67 12/15/2024 2:33 PM FOOD SERVICE ORDER CLERK Plan of Treatment Not on file Procedures Procedure Name Priority Date/Time Associated Diagnosis Comments CT HIP RIGHT WO CONTRAST Schedule Routine, Read Routine (OP Routine) 12/22/2024 3:06 PM FOOD SERVICE ORDER CLERK Hip pain, right from Last 3 Months Results * CT Hip Right WO Contrast (12/22/2024 3:06 PM FOOD SERVICE ORDER CLERK) Anatomical Region Laterality Modality Lower Extremities Right Computed Tomog jitendra 12/22/2024 4:25 PM FOOD SERVICE ORDER CLERK Impressions 12/22/2024 4:35 PM FOOD SERVICE ORDER CLERK Preoperative planning CT demonstrates severe right hip osteoarthritis with marked osseous remodeling. Dictated by: Curly Ratliff D.O. The radiology attending physician has personally reviewed this study, and had reviewed and/or edited this written report and agrees with it. Electronically signed by: John Irby M.D. Narrative 12/22/2024 4:35 PM FOOD SERVICE ORDER CLERK EXAMINATION: CT HIP RIGHT WO CONTRAST HISTORY: right hip pain, pre surgical planning COMPARISON: Radiographs 09/09/2024 TECHNIQUE: Helical CT images of the hips and knees were performed without intravenous contrast according to the CAPRICE protocol. FINDINGS: In the hips, there is ogvp-wi-ojbh articulation of the right hip with marked acetabular and proximal humeral remodeling. Numerous large subchondral cysts the right hip. Kbyc-bh-bgqr articulation medially in the left hip with [...] osteophytes bilaterally, left greater than right, with tozc-yx-xqbq articulation of the left patellofemoral compartment and [...] protocol. FINDINGS: In the hips, there is syvp-pg-oksd articulation of the right hip with marked acetabular and proximal humeral remodeling. Numerous large subchondral cysts the right hip. Bymz-ny-pczk articulation medially in the left hip with [...] osteophytes bilaterally, left greater than right, with iqqn-bp-mssm articulation of the left patellofemoral compartment and [...] it. Electronically signed by: John Irby M.D. Bert Fierro MD IMG CT PROCEDURES Fi nal Result from Last 3 Months Insurance MEDICARE [facility] MEDICARE MEDICARE [facility] Care Teams Package Car Driver Relationship Specialty Start Date End Date Fabienne Beasley MD PCP - General Family Medicine 09/13/20
--- OUTSIDE RECORDS SUMMARY | 2025-03-18 07:57 | XMS_ITS | Clinical Summary ---
Author Organization [facility] Address [address] [address] Phone Care Team Providers Care Library Customer Service Clerk Name Role Phone Fabienne Beasley MD Primary Care Provider [phone] Allergies No known active allergies Medications allopurinol (ZYLOPRIM) 100 MG Tablet Take 100 mg by mouth daily. Active levothyroxine (SYNTHROID) 100 MCG Tablet Take 100 mcg by mouth daily. Active losartan (COZAAR) 50 MG Tablet Take 50 mg by mouth daily. Active diclofenac (VOLTAREN) 50 MG Tablet Delayed Response Take 50 mg by mouth 3 times daily. Active gabapentin (NEURONTIN) 300 MG Capsule Take 300 mg by mouth 3 times daily. Active HYDROcodone-acet aminophen (NORCO) 5-325 MG Tablet Take 1 Tab by mouth every 4 hours as needed. Active [place]-3 Fatty Acids (FISH OIL PO) Take by mouth. Active Multiple Vitamins-Mineral s (MULTIVITAMIN PO) Take by mouth. Active Family History Medical History Relation Name Comments Prostate Cancer Father Stroke Father Tuberculosis Father Colon Cancer Maternal Grandmother Colon Cancer Mother Diabetes Mother Relation Name Status Comments Father Alive Maternal Grandmother Mother Social History Tobacco Use Types Packs/Day Years Used Date Smoking Tobacco: Never Smokeless Tobacco: Never Alcohol Use Standard Drinks/Week Comments Yes 0 (1 standard drink = 0.6 oz pur e alcohol) occasionally Comments Unknown Sex and Gender Information Value Date Recorded Sex Assigned at Not on file Legal Sex Female 11:00 PM CDT Gender Identity Not on file Sexual Orientation Not on file Plan of Treatment Health Maintenance Due Date Last Done Comments DEXA Bone Density 1945 Hepatitis C Virus (HCV) Screening 1945 TdaP Immunization 1945 Pneumococcal Immunization (5 0+ years) (1 of 1 - PCV) 1997 Zoster Immunization (1 of 2) 1997 Respiratory Syncytial Virus (RSV) Immunization (Adult) (1 - 1-dose 75+ series) 2022 Influenza Immunization (#1) 2024 SARS-COV-2 Immunization ( season) 2024 Colonoscopy High Risk Discontinued 07/10/2018 Colonoscopy Discontinued 07/10/2018 Colorectal Cancer Screening Discontinued Cologuard Discontinued Hepatitis B Immunization Aged Out No longer eligible based on patient's age to complete this topic Immunochemical Fecal Occult Blood Discontinued Meningococcal Immunization (ACWY) Aged Out No longer eligible based on patient's age to complete this topic Rotavirus Immunization Aged Out No lo nger eligible based on patient's age to complete this topic Procedures Procedure Name Priority Date/Time Associated Diagnosis Comments COLONOSCOPY Routine 07/10/2018 from Last 3 Months or Most Recently Relevant to Health Maintenance Results * COLONOSCOPY (07/10/2018) Rashid Jaimes DO PROCEDURE/MINOR SURGICAL ORDERA BLES Final Result from Last 3 Months or Most Recently Relevant to Health Maintenance Insurance MEDICARE [facility] Care Teams Library Customer Service Clerk Relationship Specialty Start Date End Date Fabienne Beasley MD [address] [place] [address] PCP - General Family Medicine 07/15/18
--- OUTSIDE RECORDS SUMMARY | 2025-03-18 07:57 | XMS_ITS | Encounter Summary ---
Author Organization [facility] Address [address] [place] [address] Care Team Providers Care Monotype Caster Name Role Phone Fabienne Beasley MD Primary Care Provider [phone] Reason for Visit * Auth/Cert (Routine) Specialty Diagnoses / Procedures Referred By Contac t Referred To Contact Diagnoses Primary osteoarthritis of right hip Primary osteoarthritis of right hip [M16.11] Procedures [place] ARTHRP ACETBLR/PROX FEM PROSTC AGRFT/ALGRFT ARTHROPLASTY TOTAL HIP - CAPRICE ROBOTIC ARM - DEVIN-RIGHT Referral ID Status Reason Start Date Expiration Date Visits Re quested Visits Authorized [id number] 1 1 Encounter Details Date Type Department Care Team (Late st Contact Info) Description 12/31/2024 Hospital Encounter [facility] Operating Room [address] [place] [address] Bert Fierro MD [address] [facility] [address] [place] [address] Social History Tobacco Use Types Packs/Day Years Used Date Smoking Tobacco: Never Smokeless Tobacco: Never AUDIT-C Answer Date Recorded Frequency of Alcohol Consumption Not on file 12/15/2024 Average Number of Drinks Not on file 025 Q3: How often do you have si x or more drinks on one occasion? Less than monthly 12/15/2024 Comments Unknown Sex and Gender Information Value Date Recorded Sex Assigned at Not on file Legal Sex Female 6:32 PM PROPERTY INSURANCE AGENT Gender Identity Not on file Sexual Orientation Not on file documented as of this encounter Functional Status documented as of this encounter Plan of Treatment Not on file documented as of this encounter Visit Diagnoses Diagnosis Primary osteoarthritis of right hip- Primary documented in this encounter Admitting Diagnoses Diagnosis Primary osteoarthritis of right hip documented in this encounter Care Teams Monotype Caster Relationship Specialty Start Date End Date Fabienne Beasley MD PCP - General Family Medicine 09/13/20 documented as of this encounter
== END 2025-03-18 07:53 | disposition home or self-care (01) ==
LOC: ANHCARD 07:53
PROVIDERS: PCP Family Medicine; Visit Provider Family Medicine
DX: I48.91 Unspecified atrial fibrillation (principal); I35.8 Other nonrheumatic aortic valve disorders; I34.0 Nonrheumatic mitral (valve) insufficiency
CPT/HCPCS: 93306

== ENCOUNTER 2025-03-18 07:53 | Outpatient (CLI) | payer MEDICARE, BC, SELFPAY ==
--- NOTE | ~2025-03-18 | NM_ITS ---
EXAMINATION: NM cody stress w perfusion DATE: 03/18/2025 11:19 INDICATION: Encounter for preoperative evaluation TECHNIQUE: Rest images were obtained following intravenous administration of 9.7 mCi Tc99m tetrofosmi n (Myoview). The patient was infused intravenously with Lexiscan (Regadenoson). Then, 32.7 mCi Tc99m tetrofosmin (Myoview) was administered intravenously, and stress images were obtained. Data was recon structed into short axis and horizontal and vertical long axis SPECT images. Gated SPECT images were also obtained. COMPARISON: None. FINDINGS: There is a fixed mild perfusion defect at the apical, apical septal and mid anterolateral s egments consistent with infarct. There is also a partially reversible mild perfusion defect involving the apical lateral and mid anterolateral segments consistent with combination of infarct and ischemi a. There is normal left ventricular chamber size, wall motion and ejection fraction. Left ventricul ar ejection fraction measures >70%. IMPRESSION: 1. 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 2. Left ventricular ejection fraction measuring >70%. Reviewed, dictated and finalized at location A. IMPRESSION: 1. Nonreversible mild infarct at the apical, apical septal and mid inferolatera l segments with mild partially reversible combination of infarct and ischemia a t the apical lateral and mid anterolateral segments. 2. Left ventricular ejection fraction measuring >70%.
--- NOTE | 2025-03-18 07:56 | EST_ITS ---
Patient Info Name: Emani Simms Age: 79 years : 1945 Gender: Female Ht: 60 in Wt: 197 lbs BSA: 1.99 m2 HR: 68 bpm BP: 132 / 84 mmHg Exam Date: 03/18/2025 9:49 AM Exam Location: Echo Lab Patient Status: Outpatient Admit Date: 03/18/2025 Staff Ordering Physician: Sanford Gil DO Attending Provider: Sanford Gil DO Exercise Technologist: Christina Ray RDCS Exercise Physician: Sanford Gil DO Exam Type: CA stress cody w NM Study Info A regadenoson stress test was performed. Summary 1. 1. Negative lexiscan stress test for ischemic ST changes by ECG criteria. 2. 2. Stable hemodynamics throughout the test. 3. 3. Nuclear scan to follow and will be reported separately. Please correlate with it. 4. 4. Patient informed of the above results. Protocol: Lexiscan Stress ECG Details Stage: REST Duration (min): 1 min : 21 sec HR (bpm): 70 SBP (mmHg): 132 DBP (mmHg): 84 Stage: REST Duration (min): 7 min : 8 sec HR (bpm): 70 SBP (mmHg): 132 DBP (mmHg): 84 Stage: STAGE 1 Duration (min): 1 min : 0 sec HR (bpm): 81 SBP (mmHg): 123 DBP (mmHg): 80 Stage: RECOVERY Duration (min): 1 min : 0 sec HR (bpm): 84 SBP (mmHg): 123 DBP (mmHg): 80 Stage: RECOVERY Duration (min): 2 min : 0 sec HR (bpm): 79 SBP (mmHg): 123 DBP (mmHg): 80 Stage: RECOVERY Duration (min): 3 min : 0 sec HR (bpm): 76 SBP (mmHg): 103 DBP (mmHg): 73 Stage: RECOVERY Duration (min): 3 min : 34 sec HR (bpm): 75 SBP (mmHg): 103 DBP (mmHg): 73 Rest HR: 70 bpm Peak HR: 96 bpm Rest Sys BP: 132 mmHg Peak Sys BP: 123 mmHg Max Pred HR: 143 bpm % Max Pred HR: 67 % Target HR: 122 bpm Max RPP: 11,808 bpm*mmHg Termination Reason: Completed protocol Cardiac Symptoms: None Total Time: 1 min : 0 sec Rest Hammond BP: 84 mmHg Peak Hammond BP: 80 mmHg Total Dose: 0.4 mg Resting ECG Ectopic atrial rhythm, low voltage in diffuse leads, borderline ST-T wave in diffuse leads. Stress ECG No ST changes. Arrhythmias None. Report Signatures
--- OUTSIDE RECORDS SUMMARY | 2025-03-18 07:59 | XMS_ITS | Continuity of Care Document ---
Author Organization [facility] Address [address] [facility] [address] [place] [address] Phone Care Team Providers Care Web Merchant Name Role Phone Nava Yonathan Unavailable Unavailable [...] Normal Limit F/U Pl an Doc Office/outpatient visit,[facility] 2023 Advance Directives Directive Yes / No Effective Date File Name No Information Encounters Encounter Description Practice Location Reason(s) For Visit Diagnoses Date Provider Providers Copied on Encounter [facility], [address] [place] [address], [id number], [place] [phone] [facility] No Information 4 Nava Sarkaroph er. [address] [place] [address], [place] [address], [place], [place], [id number] , [place]. tel: [phone] Office/outpat ient visit,[facility], [address], [id number], [place] tel:[phone] [facility] right hip (chief complaint) Unilateral primary osteoarthritis , right hip 4 Nava miramontes. [address] [facility], [address] [facility], [place], [place], [id number] , . tel: [phone] Referring Provider: Yonathan Morse, [address] [facility] [address], [place], [address]. tel:[phone] Office/outpat ient visit,new, [facility], [address], [place], [place], [id number], [phone] [facility] Right hip (chief complaint) Pain in right hipIdiopathic aseptic necrosis of right femur 4 Elijah Mena. [address] [facility], [address], [place], [place], [id number] , . tel: [phone] Referring Provider: Rajesh Lewis, [address] [facility] [address], [place], [address]. tel:[phone] Family History Family Member Type Diagnosis Age [...] Unspecified Payers Payer name Insurance type Covered green party ID Authoriza tion(s) Medicare [place] WPS Part B MB [id number] [facility] [id number] Social History Type Description Quantity Date Captured [...] n, with posterior approach and location at [facility] were reviewed in depth, as was the [...] on Dr. Yonathan Vick surgical schedule at [facility], as well as scheduled for an intraoffice presurgical evaluation. Prescription for Tylenol No. 4 with codeine will be sent to her pharmacy as she is intolerant of tramadol. She was advised that this is a one-time prescription to be filled to get her to surgery, and she will continue the use of diclofenac and gabapentin as needed. She will add gvrw-eyu-xdguskg NSAIDs and analgesics, being advised not to consume more than 4000 mg of acetaminophen per day. She may initiate the use of topical products such as Voltaren gel or lidocaine patch. All questions were answered and concerns addressed.Dictation completed with [employer] Practice Edition software, grammatical variances and spelling errors may inadvertently occur. Related to Idiopathic aseptic necrosis of right femur Assessments Type Assessment Date No Information Patient Care Teams Name Effective Dates (start - stop) Status Members No Information
== END 2025-03-18 07:54 | disposition home or self-care (01) ==
LOC: ANHCARD 07:54
PROVIDERS: PCP Family Medicine; Visit Provider Internal Medicine Cardiovascular Disease
DX: Z01.818 Encounter for other preprocedural examination (principal)
CPT/HCPCS: 78452; 93017; A9502; J2785

== ENCOUNTER 2025-03-25 11:16 | Outpatient (CLI) | payer MEDICARE, BC, SELFPAY ==
--- NOTE | ~2025-03-25 | XR_ITS ---
Right Shoulder Technique: AP and scapular Y views were obtained. Clinical History: Arthritis Findings: No fracture or dislocation is seen. Osseous alignment is anatomic. There is severe degenera tive change of the glenohumeral joint. There is moderate degenerative change of the AC joint. Large i nferomedial humeral head osteophyte present. There is joint space narrowing and sclerosis of the rangel ohumeral joint. Soft tissues are unremarkable. Impression: Severe glenohumeral joint osteoarthritis. Moderate AC joint degenerative change. Reviewed, dictated and finalized at location M. Impression: Severe glenohumeral joint osteoarthritis. Moderate AC joint degenerative change.
--- NOTE | ~2025-03-25 | XR_ITS ---
Left Shoulder Technique: AP and scapular Y views were obtained. Clinical History: Arthritis Findings: No fracture or dislocation is seen. There is severe glenohumeral joint osteoarthritic de leon e, with large inferomedial humeral head osteophyte. There is mild AC joint degenerative change.. Soft tissues are unremarkable. Impression: Severe glenohumeral joint osteoarthritis. Reviewed, dictated and finalized at location . Impression: Severe glenohumeral joint osteoarthritis.
--- OUTSIDE RECORDS SUMMARY | 2025-03-25 12:48 | XMS_ITS | Continuity of Care Document ---
Author Organization [facility] Address [address] [facility] [address] [place] [address] Phone Care Team Providers Care Typing Element Machine Operator Name Role Phone Nava Yonathan Unavailable Unavailable [...] Normal Limit F/U Pl an Doc Office/outpatient visit,[facility] 2023 Advance Directives Directive Yes / No Effective Date File Name No Information Encounters Encounter Description Practice Location Reason(s) For Visit Diagnoses Date Provider Providers Copied on Encounter [facility], [address] [place] [address], [id number], [place] tel:[phone] [facility] No Information 4 Nava Sarkaroph er. [address] [place] [address], [place] [address], [place], [place], [id number] , [place]. tel: [phone] Office/outpat ient visit,[facility], [address], [id number], [place] tel:[phone] [facility] right hip (chief complaint) Unilateral primary osteoarthritis , right hip 4 Nava miramontes. [address] [facility], [address] [facility], [place], [place], [id number] , . tel: [phone] Referring Provider: Yonathan Morse, [address] [facility] [address], [place], [address]. tel:[phone] Office/outpat ient visit,new, [facility], [address], [place], [place], [id number], [phone] [facility] Right hip (chief complaint) Pain in right hipIdiopathic aseptic necrosis of right femur 4 Elijah Mena. [address] [facility], [address], [place], [place], [id number] , . tel: [phone] Referring Provider: Rajesh Lewis, [address] [facility] [address], [place], [address]. tel:[phone] Family History Family Member Type Diagnosis Age [...] Unspecified Payers Payer name Insurance type Covered libertarian ID Authoriza tion(s) [place] W[place] Part B MB [id number] [place] [facility] [id number] Social History Type Description Quantity Date Captured [...] n, with posterior approach and location at [facility] were reviewed in depth, as was [...] on Dr. Yonathan Vick surgical schedule at [facility], as well as scheduled for an intraoffice presurgical evaluation. Prescription for Tylenol No. 4 with codeine will be sent to her pharmacy as she is intolerant of tramadol. She was advised that this is a one-time prescription to be filled to get her to surgery, and she will continue the use of diclofenac and gabapentin as needed. She will add qgze-kgk-fswkteg NSAIDs and analgesics, being advised not to consume more than 4000 mg of acetaminophen per day. She may initiate the use of topical products such as Voltaren gel or lidocaine patch. All questions were answered and concerns addressed.Dictation completed with [employer] Practice Edition software, grammatical variances and spelling errors may inadvertently occur. Related to Idiopathic aseptic necrosis of right femur Assessments Type Assessment Date No Information Patient Care Teams Name Effective Dates (start - stop) Status Members No Information
--- OUTSIDE RECORDS SUMMARY | 2025-03-25 12:48 | XMS_ITS | Encounter Summary ---
Author Organization [facility] Address [address] [place] [address] Care Team Providers Care Edge Stripper Name Role Phone Fabienne Beasley MD Primary Care Provider [phone] Reason for Visit * Auth/Cert (Routine) Specialty Diagnoses / Procedures Referred By Contac t Referred To Contact Diagnoses Primary osteoarthritis of right hip Primary osteoarthritis of right hip [M16.11] Procedures [place] ARTHRP ACETBLR/PROX FEM PROSTC AGRFT/ALGRFT ARTHROPLASTY TOTAL HIP - CAPRICE ROBOTIC ARM - DEVIN-RIGHT Referral ID Status Reason Start Date Expiration Date Visits Re quested Visits Authorized [id number] 1 1 Encounter Details Date Type Department Care Team (Late st Contact Info) Description 12/31/2024 Hospital Encounter [facility] Operating Room [address] [place] [address] Bert Fierro MD [address] [facility] [address] [place] [address] Social History Tobacco Use Types Packs/Day Years [...] on file Legal Sex Female 6:32 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
--- OUTSIDE RECORDS SUMMARY | 2025-03-25 12:48 | XMS_ITS | Referral Summary ---
Author Organization [facility] Address [address] [place] [address] Care Team Providers Care Carport Erector Name Role Phone Fabienne Beasley MD Primary Care Provider Encounters Date Type Department Care Team Description 12/15/2024 11:59 PM DRIER HELPER Anesthesia Event [facility] Operating Room [address] [place] [id number] Dona Freeman NP 12/31/2024 Hospital Encounter [facility] Operating Room [address] [place] [address] Bert Fierro MD from Last 3 Months Allergies No known [...] 1 tablet (100 mcg total) by mouth recovery specialist before breakfast 0 Active omega-3 fatty acids-fish oil 300-1,000 mg capsule Take 2 capsules (2 g total) by mouth every morning Active cholecalciferol , vitamin D3, (VITAMIN D3 ORAL) Take 1 capsule by mouth every morning Active multivit-minera y-rycy-oiqrqr tablet Take 1 tablet by mouth every [...] on file Legal Sex Female 6:32 PM DRIER HELPER Gender Identity Not on file Sexual Orientation Not on file Last Filed Vital Signs Vital Sign Reading Time Taken Comments Blood Pressure 138/60 12/15/2024 2:33 PM DRIER HELPER Pulse 67 12/15/2024 2:30 PM DRIER HELPER Temperature 36.7 C (98.1 F) 09/29/2024 1:53 PM DRIER HELPER Respiratory Rate 18 12/15/2024 2:30 PM DRIER HELPER Oxygen Saturation 100% 12/15/2024 2:30 PM DRIER HELPER Inhaled Oxygen Concentration - - Weight 89.8 kg (198 lb) 12/15/2024 2:33 PM DRIER HELPER Height 152.4 cm (5') 12/15/2024 2:33 PM DRIER HELPER Body Mass Index 38.67 12/15/2024 2:33 PM DRIER HELPER Plan of Treatment Not on file Insurance MEDICARE [facility] MEDICARE MEDICARE [facility] [employer] Care Teams Carport Erector Relationship Specialty Start Date End Date Fabienne Beasley MD PCP - General Family Medicine 09/13/20
--- OUTSIDE RECORDS SUMMARY | 2025-03-25 12:48 | XMS_ITS | Clinical Summary ---
Author Organization [facility] Address [address] [address] Phone Care Team Providers Care Preschool Education Director Name Role Phone Fabienne Beasley MD Primary Care Provider [phone] Allergies No known active allergies Medications allopurinol [...] mouth every 4 hours as needed. Active [place]-3 Fatty Acids (FISH OIL PO) Take by [...] Recently Relevant to Health Maintenance Insurance MEDICARE [facility] Care Teams Preschool Education Director Relationship Specialty Start Date End Date Fabienne Beasley MD [address] [place] [address] PCP - General Family Medicine 07/15/18
--- OUTSIDE RECORDS SUMMARY | 2025-03-25 12:48 | XMS_ITS | Clinical Summary ---
Author Organization [facility] Address [address] [place] [address] Care Team Providers Care Career Agent Name Role Phone Fabienne Beasley MD Primary Care Provider [phone] Allergies No known active allergies Medications gabapentin [...] 1 tablet (100 mcg total) by mouth kiosk sales representative before breakfast 0 Active omega-3 fatty acids-fish oil 300-1,000 mg capsule Take 2 capsules (2 g total) by mouth every morning Active cholecalciferol , vitamin D3, (VITAMIN D3 ORAL) Take 1 capsule by mouth every morning Active multivit-minera b-sahe-rmxrxp tablet Take 1 tablet by mouth every morning Active Active Problems Problem Noted Date Diagnosed Date Primary osteoarthritis of right hip 09/10/2024 Hip pain 09/29/2020 Encounters Date Type Department Care Team Description 12/31/2024 Hospital Encounter [facility] Operating Room [address] [address] [address] Bert Fierro MD 12/15/2024 11:59 PM TOWER HAND Anesthesia Event [facility] [address] PER[address] Fuentes [address] Dona Freeman NP from Last 3 Months [...] on file Legal Sex Female 6:32 PM TOWER HAND Gender Identity Not on file Sexual Orientation Not on file Obstetrics History Last Filed Vital Signs Vital Sign Reading Time Taken Comments Blood Pressure 138/60 12/15/2024 2:33 PM TOWER HAND Pulse 67 12/15/2024 2:30 PM TOWER HAND Temperature 36.7 C (98.1 F) 09/29/2024 1:53 PM TOWER HAND Respiratory Rate 18 12/15/2024 2:30 PM TOWER HAND Oxygen Saturation 100% 12/15/2024 2:30 PM TOWER HAND Inhaled Oxygen Concentration - - Weight 89.8 kg (198 lb) 12/15/2024 2:33 PM TOWER HAND Height 152.4 cm (5') 12/15/2024 2:33 PM TOWER HAND Body Mass Index 38.67 12/15/2024 2:33 PM TOWER HAND Plan of Treatment Health Maintenance Due Date [...] Influenza Vaccine (Season Ended) 2025 12/16/19 20 Insurance MEDICARE [facility] MEDICARE MEDICARE [facility] Member Subscriber Plan / Payer (Ef fective 2007-Present) Name:Emani Simms Relation to Subscriber:Self Name:Emani Simms Payer ID:[id number] (NAIC) Group ID:[id number] Type: [employer] Address: [address] [place] [id number] Care Teams Career Agent Relationship Specialty Start Date End Date Fabienne Beasley MD PCP - General Family Medicine 09/13/20
== END 2025-03-25 11:17 | disposition home or self-care (01) ==
PROVIDERS: PCP Family Medicine; Visit Provider Orthopaedic Surgery
DX: M19.011 Primary osteoarthritis, right shoulder (principal); M19.012 Primary osteoarthritis, left shoulder
CPT/HCPCS: 73030

== ENCOUNTER 2025-05-07 23:19 | Inpatient (IN) | payer MEDICARE, BC, SELFPAY ==
--- NOTE | ~2025-05-07 | XR_ITS ---
EXAMINATION: XR retrograde pyelo w/stent RT DATE: 05/08/2025 07:54 INDICATION: Right internal ureteral stent placement TECHNIQUE: Fluoroscopic images from a right internal ureteral stent placement are submitted for alejo barrientos 24 seconds of fluoroscopy time. FINDINGS: There is a right double-J internal ureteral stent projecting in expected position, with proximal [place] loop at the level of the renal pelvis and distal loop in the pelvis within the bladder lumen. IMPRESSION: 1. Right internal ureteral stent placement. Please refer to real-time procedural findings for detnahomi ls. Reviewed, dictated and finalized at location [] IMPRESSION: 1. Right internal ureteral stent placement. Please refer to real-time procedu ral findings for details.
--- NOTE | ~2025-05-07 | XR_ITS ---
Portable chest x-ray Comparison: 04/18/2010 Clinical History: Shortness of breath Findings: Lungs are clear, without focal consolidation or pleural effusion. Cardiomediastinal silho uette is stable. There is advanced degenerative change of both shoulders. Impression: Clear lungs. Reviewed, dictated and finalized at [facility]. Impression: Clear lungs.
--- NOTE | ~2025-05-07 | XR_ITS ---
AP view of the pelvis and AP and lateral views of the bilateral hips Clinical history: Pain COMPARISON: 05/21/2024 Findings: No acute fracture or dislocation is seen. Osseous alignment is anatomic. Stable severe dege nerative change of the right hip joint with chronic remodeling of the right femoral head which is dim inutive. There is moderate to advanced degenerative change of the left hip joint, stable from prior e xam. Soft tissues are unremarkable. Impression: No acute abnormality. Stable severe degenerative change of the right hip joint with chronic remodeling of the right femoral head which is diminutive in overall appearance. Moderate to advanced degenerative change of the left hip joint, similar to prior exam. Reviewed, dictated and finalized at location M. Impression: No acute abnormality. Stable severe degenerative change of the right hip joint with chronic remodelin g of the right femoral head which is diminutive in overall appearance. Moderate to advanced degenerative change of the left hip joint, similar to prio r exam.
--- NOTE | ~2025-05-07 | CT_ITS ---
Non-contrast CT scan of the Abdomen and Pelvis Clinical indication: Kidney stone Technique: 2.5 mm axial scans were obtained through the abdomen and pelvis without intravenous or or al contrast. Dose reduction technique was used on this scan by utilizing automated exposure control a nd iterative reconstruction technique. The dose-length product (DLP) was 1693.32 mGy-cm. Findings: Images through the lung bases reveal no abnormalities. Punctate nonobstructing left renal stones are present. No left ureteral stone or left hydronephrosis. There is a 16 mm stone at the right renal pelvis with moderate to severe right hydronephrosis. There is patchy retained contrast enhancement throughout the right renal parenchyma with retained excreted contrast in the dilated right renal collecting system. There are shotty right perinephric and aortoc aval lymph nodes present. The liver, spleen, pancreas, gallbladder, and right adrenal gland appear normal. There is a 3.1 cm ma ss with dense peripheral eggshell calcification left or quadrant, presumably reflecting left adrenal gland (axial image 57). There is no aortic aneurysm. There is no evidence of bowel obstruction. Images through the pelvis were performed. There is no evidence of ascites or lymphadenopathy. There i s mild chronic bladder wall trabeculation. No adnexal mass evident. There is severe degenerative change of both hip joints, right worse than left. Impression: 16 mm right renal pelvis stone with moderate to severe right hydronephrosis. Patchy retained contrast enhancement of the right renal parenchyma with shotty right perinephric and aortocaval lymph nodes. Findings are consistent with ATN and possible superimposed pyelonephritis. Co rrelate clinically and with urinalysis. Reviewed, dictated and finalized at [facility]. Impression: 16 mm right renal pelvis stone with moderate to severe right hydronephrosis. Patchy retained contrast enhancement of the right renal parenchyma with shotty right perinephric and aortocaval lymph nodes. Findings are consistent with ATN and possible superimposed pyelonephritis. Correlate clinically and with urinaly sis.
--- NOTE | ~2025-05-07 | CT_ITS ---
History: Vertigo PROCEDURE: CT head without contrast. COMPARISON: None TECHNIQUE: Axial imaging of the head performed from the skull base to the vertex without IV contrast. Sagittal a nd coronal reformations obtained. DLP: 681 mGy-cm FINDINGS: The ventricles are enlarged. The dilatation of the ventricles is proportional to the degree of sulcal prominence, not uncommon in the senescent brain. Basal ganglia calcifications are present. Decreased attenuation is identified within the periventricular white matter, likely secondary to micr ovascular ischemic disease, in a patient of this age. There is no mass, mass effect or midline shift. There is no abnormal extra-axial fluid collection or intracranial hemorrhage. Visualized paranasal sinuses are clear. The mastoid air cells are well aerated. No acute displaced fractures within the overlying cranium. Impression: No acute intracranial hemorrhage or suspicious mass effect. Reviewed, dictated and finalized at location A. Impression: No acute intracranial hemorrhage or suspicious mass effect.
--- NOTE | ~2025-05-07 | XR_ITS ---
Portable chest x-ray Comparison: 05/08/2025 at 3:12 AM Clinical History: Line placement Findings: Right IJ line in satisfactory position. Lungs remain clear. No pleural effusion, consolida tion, or pneumothorax. Cardiomediastinal silhouette is stable. Severe degenerative change of both sh oulders again noted. Impression: Right IJ line in place. Clear lungs. Reviewed, dictated and finalized at location M. Impression: Right IJ line in place. Clear lungs.
--- NOTE | ~2025-05-07 | XR_ITS ---
Right Shoulder Technique: AP and scapular Y views were obtained. Clinical History: Pain Findings: No fracture or dislocation is seen. Osseous alignment is anatomic. The glenohumeral joint d emonstrates severe osteoarthritic change, with large humeral head osteophyte, joint space narrowing, reactive sclerosis.. There is mild degenerative change of the AC joint. Soft tissues are unremarkable . Impression: Severe glenohumeral joint degenerative change. No acute fracture or dislocation seen. Reviewed, dictated and finalized at location M. Impression: Severe glenohumeral joint degenerative change. No acute fracture or dislocation seen.
--- NOTE | ~2025-05-07 | XR_ITS ---
Supine and upright views of the abdomen Clinical history: Right ureteral obstruction Findings: Bowel gas pattern is nonspecific. No evidence for obstruction or free air. Suspected 16 mm stone seen projecting just to the right of the L3-L4 disc space, though extensive stool contents thal amus evaluation. There is a 3.1 cm peripherally calcified mass in the left upper lobe, which correlat es with prior CT scan. Osseous structures are intact. Impression: Probable 16 mm stone projecting just the right of the L3-L4 disc space, which correlates with finding s on prior CT. 3.1 cm peripherally calcified mass in left upper lobe which corresponds prior CT scan, possibly adren al lesion. Reviewed, dictated and finalized at location M. Impression: Probable 16 mm stone projecting just the right of the L3-L4 disc space, which c orrelates with findings on prior CT. 3.1 cm peripherally calcified mass in left upper lobe which corresponds prior C T scan, possibly adrenal lesion.
--- NOTE | ~2025-05-07 | CT_ITS ---
Non-contrast CT scan of the Pelvis Clinical indication: Hip injury Technique: 2.5 mm axial scans were obtained through the pelvis without intravenous or oral contrast. Dose reduction technique was used on this scan by utilizing automated exposure control and iterative reconstruction technique. The dose-length product (DLP) was 951.03 mGy-cm. Findings: There is an apparent 15 mm ovoid stone at the right renal pelvis with moderate to severe ri ght hydronephrosis and patchy retained contrast enhancement of the right renal parenchyma, which coul d reflect ATN. Visualized left kidney unremarkable. Visualized bowel loops are unremarkable. Urinary bladder demonstrates probable mild chronic wall thic kening/trabeculation. No adnexal mass evident. No ascites. No acute fracture or dislocation seen. There is severe osteoarthritis of the right hip joint with chr onic remodeling and diminutive appearance of the right femoral head. There is remodeling of the right acetabulum. There is also advanced degenerative change of the left hip joint with diffuse joint spac e narrowing, osteophyte formation, sclerosis, and subchondral cystic change. No hematoma or other peripheral soft tissue mass or fluid collection evident. Impression: No acute fracture or dislocation seen. Severe degenerative changes of both hips, as detailed above, r ight worse than left. There is chronic remodeling and deformity of the right femoral head. 15 mm right renal pelvis stone with moderate to severe right hydronephrosis and findings compatible w ith ATN of the right kidney with patchy retained contrast enhancement of the right renal parenchyma. Reviewed, dictated and finalized at [facility]. Impression: No acute fracture or dislocation seen. Severe degenerative changes of both hips , as detailed above, right worse than left. There is chronic remodeling and def ormity of the right femoral head. 15 mm right renal pelvis stone with moderate to severe right hydronephrosis and findings compatible with ATN of the right kidney with patchy retained contrast enhancement of the right renal parenchyma.
[2025-05-07 23:17] VITALS: BP 110/50; PULSE 107; RESP 23; TEMP 37.3; O2SAT 95
--- OUTSIDE RECORDS SUMMARY | 2025-05-07 23:33 | XMS_ITS | Encounter Summary ---
Author Organization [facility] Healthcare Address [address] [place] [address] Care Team Providers Care Furnace Repairer Helper Name Role Phone Fabienne Beasley MD Primary Care Provider [phone] Reason for Visit * Auth/Cert (Routine) Specialty Diagnoses / Procedures Referred By Contac t Referred To Contact Diagnoses Primary osteoarthritis of right hip Primary osteoarthritis of right hip [M16.11] Procedures AR ARTHRP ACETBLR/PROX FEM PROSTC AGRFT/ALGRFT ARTHROPLASTY TOTAL HIP - CAPRICE ROBOTIC ARM - DEVIN-RIGHT Referral ID Status Reason Start Date Expiration Date Visits Re quested Visits Authorized [id number] 1 1 Encounter Details Date Type Department Care Team (Late st Contact Info) Description 12/31/2024 Hospital Encounter [facility] Operating Room [address] [place] [address] Bert Fierro MD [address] [facility] [address] [place] [address] Social History Tobacco Use Types Packs/Day Years [...] on file 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
--- OUTSIDE RECORDS SUMMARY | 2025-05-07 23:33 | XMS_ITS | Encounter Summary ---
Author Organization [facility] Healthcare Address [address] [place] [address] Care Team Providers Care Welt Beater Name Role Phone Fabienne Beasley MD Primary Care Provider [phone] Reason for Referral * MRI/CAT/PET Scan (Routine) - Closed Specialty Diagnoses / Procedures Referred By Estiven blanc Referred To Contact Radiology Diagnoses Abnormal result of other cardiovascular function study Procedures CTA Heart and Coronary Arteries W Morphology when Performed Sanford Gil DO [address] [place] [id number] Phone: tel: fax: [address] [address] Referral ID Status Reason Start Date Expiration Date Visits Re quested Visits Authorized [id number] Closed 03/30/2025 04/29/2026 1 1 Reason for Visit * MRI/CAT/PET Scan (Routine) - Closed Specialty Diagnoses / Procedures Referred By Contac jayashree Referred To Contact Radiology Diagnoses Abnormal result of other cardiovascular function study Procedures CTA Heart and Coronary Arteries W Morphology when Performed Sanford Gil DO [address] [address] Phone: tel: fax: [place] [address] [place] [address] Referral ID Status Reason Start Date Expiration Date Visits Re quested Visits Authorized [id number] Closed 03/30/2025 04/29/2026 1 1 Encounter Details Date Type Department Care Team (Latest Contact Info) Description 05/06/2025 1:10 PM CDT - 05/06/2025 11:59 PM CDT Hospital Encounter [facility] [address] [place] [address] Abnormal result of other cardiovascular function study Discharge Disposition: Discharge to home or self care Social History Tobacco Use Types Packs/Day Years [...] on file 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 CTA uses a CAT scan machine and an injection of contrast (radiology dye) into your blood vessels tohelp see blood vessel diseases or conditions such as abnormal blood vessels or blockages. You may have been given 0.8mg Nitroglycerin during the study today. A headache will be the most common side effect of Nitroglycerin administration. You should not experience any other side effects from these medications. You may take prescribed medication as normal. documented in this encounter Medications at Time of Discharge allopurinoL (ZYLOPRIM) 100 mg tabletIndication s:prevention of acute gout attack Take 1 tablet (100 mg total) by mouth every morning 09/24/2020 cholecalciferol, vitamin D3, (VITAMIN D3 ORAL) Take 1 capsule by mouth every morning diclofenac DR (VOLTAREN) 50 mg EC tabletIndication s:Pain Take 75 mg by mouth 2 (two) times a day 09/06/2020 gabapentin (NEURONTIN) 300 mg capsuleIndicatio ns:Neuropathic Pain Take by mouth 2 (two) times a day 300 mg in AM 900 mg in PM 09/29/2020 levothyroxine (SYNTHROID) 100 mcg tabletIndication s:hypothyroidism Take 1 tablet (100 mcg total) by mouth wheat shipper before breakfast 07/05/2020 losartan (COZAAR) 50 mg tabletIndication s:hypertension Take 1 tablet (50 mg total) by mouth every morning 08/05/2020 multivit-mineral -iron-lutein tablet Take 1 tablet by mouth every morning omega-3 fatty acids-fish oil 300-1,000 mg capsule Take 2 capsules (2 g total) by mouth every morning documented as of this encounter Discharge Disposition Disposition Code Departure Means Destination Discharge to home or self care documented in this encounter Plan of Treatment Not on file documented as of this encounter Procedures Procedure Name Priority Date/Time Associated Diagnosis Comments CT HEART MORPHOLOGY AND CORONARY ARTERIES W CONTRAST Schedule Routine, Read Routine (OP Routine) 05/06/2025 2:02 PM CDT Abnormal result of other cardiovascular function study documented in this encounter Results * CTA Heart and Coronary Arteries W Morphology when Performed (05/06/2025 2:02 PM CDT) Anatomical Region Laterality Modality Chest N/A Computed Tomogra phy 05/06/2025 2:35 PM CDT Impressions 05/06/2025 3:41 PM CDT 1. Nonobstructing coronary artery disease. Calcium score is 171. 2. Peripherally calcified enhancing lesion in the left upper quadrant which may reflect a aneurysm of the splenic artery, however incompletely imaged and indeterminate. Dictated by: Faiza Avila MD The radiology attending physician has personally reviewed this study, and had reviewed and/or edited this written report and agrees with it. Electronically signed by: Abe Priest M.D. Narrative 05/06/2025 3:41 PM CDT EXAMINATION: CORONARY CT ANGIOGRAM HISTORY: Abnormal EKG during pre-operative evaluation. Intermediate CAD risk. TECHNIQUE: CT angiography of the coronary arteries was performed after the administration of 94 mL of Optiray 350. Images were also obtained precontrast for the purposes of calcium scoring. Prior to the examination, 0.8 mg nitroglycerin was administered sublingually. The patient's heart rate at the time of the examination was 72 beats per minute. Images were transferred to a 3D workstation for additional post-processing. FINDINGS: The coronary arteries are right system dominant. There is no anomalous coronary origin or course. No focal caliber change or irregularity to suggest coronary artery dissection. Right coronary system: No atherosclerotic disease. Left coronary system: -Left main: No atherosclerotic disease. -Left anterior descending: Mixed calcified and noncalcified atherosclerotic plaque along the mid segment resulting in up to mild stenosis. -Left circumflex: No atherosclerotic disease. The calculated calcium score is 171. Other findings: Calcified granuloma in the lingula. There is a peripherally calcified hyperdense lesion in the left upper quadrant posterior to the stomach and medial to the spleen, only partially imaged. 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 Mild degenerative changes of the thoracic spine with diffuse idiopathic skeletal hyperostosis. Procedure Note Abe Priest MD - 05/06/2025 EXAMINATION: CORONARY CT ANGIOGRAM HISTORY: Abnormal EKG during pre-operative evaluation. Intermediate CAD risk. TECHNIQUE: CT angiography of the coronary arteries was performed after the administration of 94 mL of Optiray 350. Images were also obtained precontrast for the purposes of calcium scoring. Prior to the examination, 0.8 mg nitroglycerin was administered sublingually. The patient's heart rate at the time of the examination was 72 beats per minute. Images were transferred to a 3D workstation for additional post-processing. FINDINGS: The coronary arteries are right system dominant. There is no anomalous coronary origin or course. No focal caliber change or irregularity to suggest coronary artery dissection. Right coronary system: No atherosclerotic disease. Left coronary system: -Left main: No atherosclerotic disease. -Left anterior descending: Mixed calcified and noncalcified atherosclerotic plaque along the mid segment resulting in up to mild stenosis. -Left circumflex: No atherosclerotic disease. The calculated calcium score is 171. Other findings: Calcified granuloma in the lingula. There is a peripherally calcified hyperdense lesion in the left upper quadrant posterior to the stomach and medial to the spleen, only partially imaged. 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 Mild degenerative changes of the thoracic spine with diffuse idiopathic skeletal hyperostosis. IMPRESSION: 1. Nonobstructing coronary artery disease. Calcium score is 171. 2. Peripherally calcified enhancing lesion in the left upper quadrant which may reflect a aneurysm of the splenic artery, however incompletely imaged and indeterminate. Dictated by: Faiza Avila MD The radiology attending physician has personally reviewed this study, and had reviewed and/or edited this written report and agrees with it. Electronically signed by: Abe Priest M.D. Sanford Gil DO IMG CT PROCEDURES Final Resu lt documented in this encounter Visit Diagnoses Diagnosis Abnormal result of other cardiovascular function study documented in this encounter Administered Medications Inactive Administered Medications - up to 3 most recent administrations Medication Order MAR Action Action Date Dose Rate Site ioversoL (OPTIRAY 350) syringe 100 mL 100 mL, intravenous, Once in imaging, contrast, Starting on Sun05/06/25 at 1358, For 1 dose Contrast Given 05/06/2025 1:59 PM CDT 94 mL nitroglycerin (NITROSTAT) sublingual tablet 0.8 mg 0.8 mg, sublingual, Once as needed, other, coronary artery vasodilation, Starting on Sun05/06/25 at 1318, For 1 hour, Administer during CT procedure only. Administer when blood pressure is greater than 100/60 and patient has not taken any vasodilator medication or has critical aortic stenosis. Given by Other 05/06/2025 1:50 PM CDT 0.8 mg documented in this encounter Orders Medications Ordered That Mike ht Not Have Been Administered Count Last Ordered Date First Ordered Date metoprolol (LOPRESSOR) injection 10 mg 1 documented in this encounter Care Teams Welt Beater Relationship Specialty Start Date End Date Fabienne Beasley MD PCP - General Family Medicine 09/13/20 documented as of this encounter
--- OUTSIDE RECORDS SUMMARY | 2025-05-07 23:33 | XMS_ITS | Continuity of Care Document ---
Author Organization [facility] Address [address] [facility] [address] [place] [address] Phone Care Team Providers Care 8Th Grade Mathematics Teacher Name Role Phone Yonathan Vick MD, MD Unavailable Unavaila ble Allergies, Adverse Reactions, Alerts Substance Reaction Status Criticality No Known Allergies Active No Inform ation Medications Medication Instructions Dosage Effective Dates (start - stop) Status Comments gabapentin 300 mg capsule - Active diclofenac sodium 75 mg tablet,delayed release - Active losartan 50 mg tablet - Acti ve levothyroxine 100 mcg tablet - Active allopurinol 100 mg tablet - Active Procedures Procedure Date Office[facility]outpatient visit,[facility] BMI Documented Above Normal Limit F/U Pl an Doc Office/outpatient visit,[facility] 2023 Advance Directives Directive Yes / No Effective Date File Name No Information Encounters Encounter Description Practice Location Reason(s) For Visit Diagnoses Date Provider Providers Copied on Encounter [facility], [address], [id number], [place] tel:[phone] [facility] [employer] [facility] No Information 4 Nava miramontes. [address] [place] [address], [place], [place], [id number] , [place]. tel:[phone] Office/outpat ient visit,[facility] [employer] [facility], [address], [id number], [place] tel:[phone] [facility] right hip (chief complaint) Unilateral primary osteoarthritis , right hip 4 Nava miramnotes. [address] [facility], [address], [place], [place], [id number] , [place]. tel: [phone] Referring Provider: Yonathan Morse, [address] [facility], [place], [address]. tel:[phone] Office/outpat ient visit,[facility], [facility], [address] [facility] [address], [place], [id number], tel:[phone] [facility] Right hip (chief complaint) Pain in right hipIdiopathic aseptic necrosis of right femur 4 Elijah Mena. [address] [facility] [address] [place] [address], [place], [place], [id number] , . tel: [phone] Referring Provider: Rajesh Lewis, [address], [place], [address]. tel:[phone] Family History Family Member Type Diagnosis Age [...] Authoriza tion(s) [place] A[place] [id number] Kathe [place] Albaro morse [facility] [id number] Social History Type Description Quantity Date Captured Comments Alcohol Use Details Unknown Caffeine Use Details Unknown Tobacco Use Status No Information Smoking Status No Information Sex Female Chief Complaint And Reason For Visit No Information Reason For Referral Reason For Referral No Information History Of Present Illness Encounter Date Complaint History Of Prese nt Illness right hip Emani is a 78 year=old female [...] n, with posterior approach and location at [facility] were reviewed in depth, as [...] on Dr. Yonathan Vick surgical schedule at [facility], as well as scheduled for an intraoffice presurgical evaluation. Prescription for Tylenol No. 4 with codeine will be sent to her pharmacy as she is intolerant of tramadol. She was advised that this is a one-time prescription to be filled to get her to surgery, and she will continue the use of diclofenac and gabapentin as needed. She will add ddtz-yau-yqhregq NSAIDs and analgesics, being advised not to consume more than 4000 mg of acetaminophen per day. She may initiate the use of topical products such as Voltaren gel or lidocaine patch. All questions were answered and concerns addressed.Dictation completed with [employer] software, grammatical variances and spelling errors may inadvertently occur. Related to Idiopathic aseptic necrosis of right femur Assessments Type Assessment Date No Information Patient Care Teams Name Effective Dates (start - stop) Status Members No Information
--- OUTSIDE RECORDS SUMMARY | 2025-05-07 23:35 | XMS_ITS | Clinical Summary ---
Author Organization [facility] Address [address] [place] [address] Care Team Providers Care Developmental Therapist Name Role Phone Fabienne Beasley MD Primary Care Provider [phone] Allergies No known active allergies Medications gabapentin [...] 1 tablet (100 mcg total) by mouth retail marketing specialist before breakfast 0 Active omega-3 fatty acids-fish oil 300-1,000 mg capsule Take 2 capsules (2 g total) by mouth every morning Active cholecalciferol , vitamin D3, (VITAMIN D3 ORAL) Take 1 capsule by mouth every morning Active multivit-minera a-yxkh-fpcmhu tablet Take 1 tablet by mouth every morning Active Active Problems Problem Noted Date Diagnosed Date Primary osteoarthritis of right hip 09/10/2024 Hip pain 09/29/2020 Encounters Date Type Department Care Team Description 05/06/2025 1:10 PM CDT - 05/06/2025 11:59 PM CDT Hospital Encounter [facility] [address] [place] [address] Abnormal result of other cardiovascular function study Discharge Disposition: Discharge to home or self care from Last 3 Months Surgical History Surgery [...] on file 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 Gender Identity Not on file Sexual Orientation Not on file Obstetrics History Last Filed Vital Signs Vital Sign Reading Time Taken Comments Blood Pressure 126/78 05/06/2025 1:25 PM CDT Pulse 72 05/06/2025 1:25 PM CDT Temperature 36.7 C (98.1 F) 09/29/2024 1:53 PM STORE GROUP MANAGER Respiratory Rate 13 05/06/2025 1:25 PM CDT Oxygen Saturation 100% 12/15/2024 2:30 PM STORE GROUP MANAGER Inhaled Oxygen Concentration - - Weight 89.8 kg (198 lb) 12/15/2024 2:33 PM STORE GROUP MANAGER Height 152.4 cm (5') 12/15/2024 2:33 PM STORE GROUP MANAGER Body Mass Index 38.67 12/15/2024 2:33 PM STORE GROUP MANAGER Plan of Treatment Health Maintenance Due Date [...] Abnormal result of other cardiovascular function study from Last 3 Months Results * CTA Heart and Coronary Arteries [...] DO IMG CT PROCEDURES Final Resu lt from Last 3 Months Insurance MEDICARE [facility] MEDICARE MEDICARE [facility] Care Teams Developmental Therapist Relationship Specialty Start Date End Date Fabienne Beasley MD PCP - General Family Medicine 09/13/20
--- OUTSIDE RECORDS SUMMARY | 2025-05-07 23:35 | XMS_ITS | Referral Summary ---
Author Organization [facility] Address [address] [place] [address] Care Team Providers Care Timber Cruiser Name Role Phone Fabienne Beasley MD Primary Care Provider Encounters Date Type Department Care Team Description 05/06/2025 1:10 PM CDT - 05/06/2025 11:59 PM CDT Hospital Encounter [facility] [address] [place] [address] Abnormal result of other cardiovascular function study [...] 1 tablet (100 mcg total) by mouth winder hand before breakfast 0 Active omega-3 fatty acids-fish oil 300-1,000 mg capsule Take 2 capsules (2 g total) by mouth every morning Active cholecalciferol , vitamin D3, (VITAMIN D3 ORAL) Take 1 capsule by mouth every morning Active multivit-minera o-nvqw-jhaafu tablet Take 1 tablet by mouth every [...] on file 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 Gender Identity Not on file Sexual Orientation Not on file Last Filed Vital Signs Vital Sign Reading Time Taken Comments Blood Pressure 126/78 05/06/2025 1:25 PM CDT Pulse 72 05/06/2025 1:25 PM CDT Temperature 36.7 C (98.1 F) 09/29/2024 1:53 PM SALT REFINER Respiratory Rate 13 05/06/2025 1:25 PM CDT Oxygen Saturation 100% 12/15/2024 2:30 PM SALT REFINER Inhaled Oxygen Concentration - - Weight 89.8 kg (198 lb) 12/15/2024 2:33 PM SALT REFINER Height 152.4 cm (5') 12/15/2024 2:33 PM SALT REFINER Body Mass Index 38.67 12/15/2024 2:33 PM SALT REFINER Plan of Treatment Not on file Procedures [...] lt from Last 3 Months Insurance MEDICARE [facility] MEDICARE MEDICARE [facility] [employer] Member Subscriber Plan / Payer (Ef fective 2007-Present) Name:Emani Simms Relation to Subscriber:Self Name:Emani Simms Payer ID:[id number] (NAIC) Group ID:[id number] Type:[facility] Address: [address] [address] [place] [id number] Care Teams Timber Cruiser Relationship Specialty Start Date End Date Fabienne Beasley MD PCP - General Family Medicine 09/13/20
[2025-05-08] VITALS (75 sets, daily range): BP systolic 56–129; BP diastolic 26–109; PULSE 69–110; RESP 14–32; TEMP 36.7–38.7; O2SAT 92–100; BMI 43.6
[2025-05-08] MEDS: HYDROcodone/acetaminophen (*CRX) 5-325 MG TABLET 1 TAB PO (00:15)
--- NOTE | 2025-05-08 01:17 | ED.FALL ---
HPI - Fall General Chief Complaint: Fall <Neda Verduzco APRN - Last Filed: 05/10/25 14:22> Stated Complaint: PAIN ALL OVER FROM FALL <Neda Verduzco APRN - Last Filed: 05/10/25 14:22> History of Present Illness HPI Narrative: Patient is a 79-year-old female who fell in the bathroom earlier in the day, around 2:30 p.m.. She reports she was feeling okay after her fall but the pain increased throughout the day. Patient denies any head injury or loss of consciousness. She endorses right hip pain, left hip pain, right shoulder pain. Patient reports she has severe osteoarthritis in all of these joints and has been advised to get replacements and each of them. She denies any back pain, neck pain, wrist pain, or urinary symptoms. Patient reports she is on blood thinners but she is unsure why. Her medical chart indicates a history of high blood pressure, hypothyroidism, and chronic kidney disease. <Neda Verduzco APRN - Last Filed: 05/10/25 14:22> Related Data Home Medications: Home Medications ?Medication ?Instructions ?Recorded ?Confirmed ?Last Taken ?Type multivit with minerals-iron 18 1 tablet PO DAILY 09/02/20 05/08/25 Unknown History mg-folic ac 400 mcg-vit K 25 mcg tablet (Adults Multivitamin) <Neda Verduzco APRN - Last Filed: 05/10/25 14:22> Allergies/Adverse Reactions: Allergies Allergy/AdvReac Type Severity Reaction Status Date / Time No Known Allergies Allergy Unknown Verified 05/08/25 06:00 <Neda Verduzco APRN - Last Filed: 05/10/25 14:22> Review of Systems Review of Systems: All systems reviewed & are unremarkable except as noted in HPI and below <Neda Verduzco APRN - Last Filed: 05/10/25 14:22> [facility] Past Medical History Medical History: Medical History Sepsis Acute kidney injury Obstruction of right ureteropelvic junction (UPJ) due to stone Chronic renal insufficiency, stage III (moderate) Spinal stenosis of lumbar region Colon polyp Essential (primary) hypertension H/O: gout Hypothyroidism, unspecified Lumbar radiculopathy Lymphedema Pre-diabetes Primary osteoarthritis of right hip <Neda Verduzco APRN - Last Filed: 05/10/25 14:22> Surgical History Surgical History: Surgical History H/O colonoscopy with polypectomy (~06/2018) <Neda Verduzco WEDDING DAY COORDINATOR - Last Filed: 05/10/25 14:22> Family History Family History: Family History Mother Carcinoma of colon Mother Diabetes mellitus Mother Family history of arthritis Father Malignant neoplasm of prostate Sibling Hypertension Mother Hypertension Other Cerebrovascular accident Family history of coronary artery disease Family history of gout Family history of heart disease in male family member before age 55 Family history of malignant neoplasm Family history of tuberculosis <Neda Verduzco, WEDDING DAY COORDINATOR - Last Filed: 05/10/25 14:22> Social History Social History: Social History Smoking status: Never smoker Second hand tobacco smoke exposure: No Alcohol intake: current Drinks per week: 1 Substance use: never Substance use type: does not use Do You Feel Safe in your Home?: Yes Lack of Transportation: No Lack of Food: Never True Current Housing: I Have Housing Concerned About Future Housing: No Difficulty Paying Gas/Electric Bills: No Difficulty Paying for Meds: No Currently Unemployed: No Education: Don't Know Difficulty w/ Childcare or Family Care: No Occupation/Education: retired Gender identity (if verbalized by the patient): Female Sexual Orientation (if Verbalized by the Patient): Straight or Heterosexual Spiritual care concerns: No Agree to blood products: Yes <Neda Verduzco, WEDDING DAY COORDINATOR - Last Filed: 05/10/25 14:22> Exam Narrative: GENERAL: Well appearing, well-nourished, non-toxic, in acute distress due to pain. HEAD: Normocephalic, atraumatic. NECK: Supple. No adenopathy, no masses. RESPIRATORY: Airway patent, respirations nonlabored. Clear to auscultation bilaterally, no rales, rhonchi, wheezing. CARDIOVASCULAR: Regular without murmurs, rubs, or gallops. Peripheral pulses 2+ and equal bilaterally. ABDOMINAL: Soft, nontender, nondistended, no hepatosplenomegaly. Normoactive BS. MUSCULOSKELETAL: Moves all extremities. Strength/ROM intact without gross deformities. Increased pain of right hip with adduction. Increased pain of left hip with abduction. Patient tolerates internal and external rotation, along with knee and hip flexion. Negative straight leg test both sides. SKIN: Warm, dry, normal color. No rashes. NEURO: A&O X3. Speech clear. Cranial nerves II-XII intact. No ataxic movements. PSYCHIATRIC: Appropriate mood and affect. Normal interaction. <Neda Verduzco APRN - Last Filed: 05/10/25 14:22> Course Course Emergency Course: Care assumed from Ruby and he. Lab results returned with significant leukocytosis as well as HANS. I added on request for blood cultures and lactic acid. Chest x-ray without pneumonia. CT of the pelvis still pending. Urinalysis pending as well but the urine that was obtained was dark infected appearing. Given low blood pressures, elevated white blood cell count, and HANS felt pertinent to start patient on ceftriaxone. Patient received 30 milliliter/kilogram IV fluid bolus. 0616: Blood pressure not responding to IV fluid. Will given additional 1 L bolus. Central line placed. Dr. Bishop with urology consulted and will take the patient to the OR. Dr. Madsen with the ICU also consulted and he accepts the patient to the unit. Hospitalist service accepts patient as well. Patient has received ceftriaxone 2 g IV. Will start Levophed. No acute bony injury on CT scan. Patient reports originally she is a DNR but is okay being a full code said that she go to the OR and have this stone cared for. <Bert Anne MD - Last Filed: 05/08/25 06:21> Vital Signs Vital signs: Vital Signs Temperature 37.3 C 05/07/25 23:17 Pulse Rate 107 H 05/07/25 23:17 Respiratory Rate 23 H 05/07/25 23:17 Blood Pressure 110/50 L 05/07/25 23:17 Pulse Oximetry 95 05/07/25 23:17 Oxygen Delivery Room Air 05/07/25 23:17 Temperature 36.7 C 05/10/25 04:00 Pulse Rate 113 H 05/10/25 08:00 Respiratory Rate 22 H 05/10/25 08:00 Blood Pressure 134/81 05/10/25 08:00 Pulse Oximetry 100 05/10/25 08:00 Oxygen Delivery Room Air 05/10/25 10:15 Oxygen Flow Rate 1 05/09/25 04:00 <Neda Verduzco APRN - Last Filed: 05/10/25 14:22> Vital Signs Temperature 37.3 C 05/07/25 23:17 Pulse Rate 107 H 05/07/25 23:17 Respiratory Rate 23 H 05/07/25 23:17 Blood Pressure 110/50 L 05/07/25 23:17 Pulse Oximetry 95 05/07/25 23:17 Oxygen Delivery Room Air 05/07/25 23:17 Temperature 36.7 C 05/10/25 04:00 Pulse Rate 113 H 05/10/25 08:00 Respiratory Rate 22 H 05/10/25 08:00 Blood Pressure 134/81 05/10/25 08:00 Pulse Oximetry 100 05/10/25 08:00 Oxygen Delivery Room Air 05/10/25 10:15 Oxygen Flow Rate 1 05/09/25 04:00 <Bert Anne MD - Last Filed: 05/08/25 06:21> Procedures Central Line Placement Right IJ: Central Line Date: 05/08/25 <Bert Anne MD - Last Filed: 05/08/25 06:21> Central Line Time: 06:00 <Bert Anne MD - Last Filed: 05/08/25 06:21> Discussed w/ the patient/family/POA,the placement of a central venous catheter, including its clinical necessity/indication & associated potential risks, benifits and alternatives.: Yes <Bert Anne MD - Last Filed: 05/08/25 06:21> The patient/family/POA understand(s) and acknowledge(s) the need to proceed with central venous catheter insertion as an important element of the patient's clinical management.: Yes <Bert Anne MD - Last Filed: 05/08/25 06:21> Time Out Performed: Yes <Bert Anne MD - Last Filed: 05/08/25 06:21> Patient Placed on Monitor/Pulse Ox: Yes <Bert Anne MD - Last Filed: 05/08/25 06:21> Max. Sterile Barrier Technique: Caps, large sterile sheet and hand hygiene <Bert Anne MD - Last Filed: 05/08/25 06:21> Central Line Prep: 2% chlorhexidine scrub and sterile drapes applied <Bert Anne MD - Last Filed: 05/08/25 06:21> Technique: US-Guided <Bert Anne MD - Last Filed: 05/08/25 06:21> Local Anesthetic: lidocaine 1% <Bert Anne MD - Last Filed: 05/08/25 06:21> Amount of anesthesia used (mL): 3 <Bert Anne MD - Last Filed: 05/08/25 06:21> Ultrasound Used for Placement: Yes <Bert Anne MD - Last Filed: 05/08/25 06:21> Central Line Lumen Inserted: triple <Bert Anne MD - Last Filed: 05/08/25 06:21> Post Procedure: sutured in place, good blood return, all ports aspirated, flushed, capped and sterile dressing applied <Bert Anne MD - Last Filed: 05/08/25 06:21> Post Procedure X-Ray: tip of catheter in good position and no pneumothorax seen <Bert Anne MD - Last Filed: 05/08/25 06:21> Patient Tolerated Procedure: well <Bert Anne MD - Last Filed: 05/08/25 06:21> Complications: none <Bert Anne MD - Last Filed: 05/08/25 06:21> MDM - Fall MDM Narrative Medical decision making narrative: Patient is a 79-year-old female who fell in the bathroom earlier in the day, around 2:30 p.m.. She reports she was feeling okay after her fall but the pain increased throughout the day. Patient denies any head injury or loss of consciousness. She endorses right hip pain, left hip pain, right shoulder pain. Patient reports she has severe osteoarthritis in all of these joints and has been advised to get replacements and each of them. She denies any back pain, neck pain, wrist pain, or urinary symptoms. Patient reports she is on blood thinners but she is unsure why. Her medical chart indicates a history of high blood pressure, hypothyroidism, and chronic kidney disease. Labs Ordered: None necessary Imaging Ordered: Bilateral hips with AP pelvis x-ray, right shoulder x-ray, CT pelvis Medications Ordered: [place] p.o., 1 L NS IV bolus, Morphine 2mg IV Results: Patient's right shoulder x-ray and bilateral hip x-rays show no acute abnormalities but indicate significant osteoarthritis Diagnosis: Fall, R hip pain, L hip pain, R shoulder pain Consults: orthopedic surgery Patient Education/Shared MDM: Results of imaging shared with patient and her family. 0130- Pt's heart rate is slightly elevated (100s-100s). Her family reports she has a history of atrial fibrillation. She is already on blood thinners and Metoprolol. Will perform an EKG prior to discharge. EKG indicates atrial fibrillation. Pt endorses mild improvement of symptoms following medication administration. Her family reports she is supposed to have hip reconstruction surgery soon but Elena is trying to evaluate her heart before then. They have concerns about discharge because pt lives alone. Two RNs attempted to get pt up to her feet, but pt was unable to roll to the side of the bed d/t pain. Family reports pt lives by herself and they do not want her going home. 0200- When pt sleeps her oxygen saturation levels drop down to 86-87%. Pt placed on 2L NC. Will obtain CBC, CMP, and UA prior to speaking with hospitalist about admission. Pt continues to endorse significant pain to both hips and R shoulder. Will give pt Morphine 2mg IV. Hospitalist, Yenni Landers PA-C, advised pt receive a CT pelvis scan prior to admission. 0300-Care signed out to Dr. Anne at shift change pending STAT RAD CT results. <Neda Verduzco APRN - Last Filed: 05/10/25 14:22> Differential Diagnosis Differential diagnosis: Likely dislocation of shoulder region and other (Left hip fracture, right hip fracture, right clavicle fracture, right humeral fracture) <Neda Verduzco APRN - Last Filed: 05/10/25 14:22> Lab Data Attestation: I reviewed the patient's lab results. <Neda Hannah DILIP Verduzco - Last Filed: 05/10/25 14:22> Result diagrams: 05/10/25 05:39 05/10/25 05:39 <Neda Hannah DILIP Verduzco - Last Filed: 05/10/25 14:22> Labs: Lab Results 05/08/25 05/08/25 05/08/25 Range/Units 02:46 03:19 03:34 WBC 20.0 H (4.5-10.0) K/mm3 RBC 3.55 L (4.2-5.4) M/mm3 Hgb 11.0 L (12.0-15.0) g/dL Hct 34.8 L (37.0-47.0) % MCV 98.0 (80-100) fl MCH 31.0 (26-34) pg MCHC 31.6 L (32-36) g/dl RDW 14.5 (11.5-14.5) % Plt Count 166 (150-375) k/mm3 MPV 10.0 (7.4-10.4) fl Immature Gran % (Auto) 0.7 H (0-0.5) % Neut % (Auto) 94.5 H (45.5-73.1) % Lymph % (Auto) 2.0 L (18.3-44.2) % [place] % (Auto) 1.5 L (2.6-8.5) % Eos % (Auto) 1.1 (0-4.4) % Baso % (Auto) 0.2 (0.2-1.2) % Lymph # (Auto) 0.40 L (0.9-3.2) K/mm3 [place] # (Auto) 0.3 (0.1-0.6) K/mm3 Eos # (Auto) 0.2 (0-0.3) K/mm3 Baso # (Auto) 0.0 (0.0-0.1) K/mm3 Abs Immat Gran (auto) 0.13 H (0.00-0.031) K/mm3 Absolute Neuts (auto) 18.9 H (1.3-6.7) K/mm3 Absolute Nucleated RBC 0.000 (0.0-0.012) K/mm3 Band Neutrophils % 0 (0-6) % Nucleated RBC % 0.0 (0.0-0.2) % Platelet Estimate Adequate (Adequate) Large Platelets Present Hypochromasia 1+ Anisocytosis 1+ Schistocytes None seen Sodium 138 (137-145) mmol/L Potassium 4.3 (3.4-5.0) mmol/L Chloride 104 (98-107) mmol/L Carbon Dioxide 23 (22-30) mmol/L Anion Gap 11 (4-12) mmol/L BUN 45 H D (7-17) mg/dL Creatinine 2.76 H (0.7-1.0) mg/dL Estim Creat Clear Calc 16 ml/min Estimated GFR 17 L (59 - ) Glucose 120 H (65-110) mg/dL Lactic Acid 2.4 H (0.7-2.0) mmol/L Calcium 9.7 (8.4-10.2) mg/dL Total Bilirubin 1.1 (0.2-1.3) mg/dL AST 33 (14-36) U/L ALT 15 (6-35) U/L Alkaline Phosphatase 88 (38-126) U/L Total Creatine Kinase 154 H (30-135) U/L Total Protein 6.5 (6.3-8.2) g/dL Albumin 3.8 (3.5-5.1) g/dL Urine Color [place] (Yellow) Urine Appearance Cloudy H (Clear) Urine pH 5.5 (5.0-9.0) Ur Specific [place] 1.025 (1.001-1.035) Urine Protein 3+ H (Negative) mg/dL Urine Glucose (UA) Negative (Negative) mg/dL Urine Ketones Trace H (Negative) mg/dL Ur Blood (Man) 3+ H (Negative) Urine Nitrate Positive H (Negative) Urine Bilirubin 1+ H (Negative) Urine Urobilinogen 1.0 (<2.0) mg/dL Add Ur Microanalysis Reviewed Leukocyte Esterase Rfl 1+ H (Negative) XANDER/UL Urine RBC >100 H (0-2) /hpf Urine WBC 21-50 H (0-3) /hpf Ur Squamous Epith Cells Occasional (Few) /hpf Urine Bacteria 4+ H /hpf Urine Casts 3-5 Urine Yeast (Budding) Present H (None) /hpf Nasal MRSA (PCR) (NOT DETECTE) 05/08/25 Range/Units 06:29 WBC (4.5-10.0) K/mm3 RBC (4.2-5.4) M/mm3 Hgb (12.0-15.0) g/dL Hct (37.0-47.0) % MCV (80-100) fl MCH (26-34) pg MCHC (32-36) g/dl RDW (11.5-14.5) % Plt Count (150-375) k/mm3 MPV (7.4-10.4) fl Immature Gran % (Auto) (0-0.5) % Neut % (Auto) (45.5-73.1) % Lymph % (Auto) (18.3-44.2) % [place] % (Auto) (2.6-8.5) % Eos % (Auto) (0-4.4) % Baso % (Auto) (0.2-1.2) % Lymph # (Auto) (0.9-3.2) K/mm3 [place] # (Auto) (0.1-0.6) K/mm3 Eos # (Auto) (0-0.3) K/mm3 Baso # (Auto) (0.0-0.1) K/mm3 Abs Immat Gran (auto) (0.00-0.031) K/mm3 Absolute Neuts (auto) (1.3-6.7) K/mm3 Absolute Nucleated RBC (0.0-0.012) K/mm3 Band Neutrophils % (0-6) % Nucleated RBC % (0.0-0.2) % Platelet Estimate (Adequate) Large Platelets Hypochromasia Anisocytosis Schistocytes Sodium (137-145) mmol/L Potassium (3.4-5.0) mmol/L Chloride (98-107) mmol/L Carbon Dioxide (22-30) mmol/L Anion Gap (4-12) mmol/L BUN (7-17) mg/dL Creatinine (0.7-1.0) mg/dL Estim Creat Clear Calc ml/min Estimated GFR (59 - ) Glucose (65-110) mg/dL Lactic Acid 1.3 (0.7-2.0) mmol/L Calcium (8.4-10.2) mg/dL Total Bilirubin (0.2-1.3) mg/dL AST (14-36) U/L ALT (6-35) U/L Alkaline Phosphatase (38-126) U/L Total Creatine Kinase (30-135) U/L Total Protein (6.3-8.2) g/dL Albumin (3.5-5.1) g/dL Urine Color (Yellow) Urine Appearance (Clear) Urine pH (5.0-9.0) Ur Specific [place] (1.001-1.035) Urine Protein (Negative) mg/dL Urine Glucose (UA) (Negative) mg/dL Urine Ketones (Negative) mg/dL Ur Blood (Man) (Negative) Urine Nitrate (Negative) Urine Bilirubin (Negative) Urine Urobilinogen (<2.0) mg/dL Add Ur Microanalysis Leukocyte Esterase Rfl (Negative) XANDER/UL Urine RBC (0-2) /hpf Urine WBC (0-3) /hpf Ur Squamous Epith Cells (Few) /hpf Urine Bacteria /hpf Urine Casts Urine Yeast (Budding) (None) /hpf Nasal MRSA (PCR) Not detected (NOT DETECTE) <Neda Verduzco, WEDDING DAY COORDINATOR - Last Filed: 05/10/25 14:22> Lab Results 05/08/25 05/08/25 05/08/25 Range/Units 02:46 03:19 03:34 WBC 20.0 H (4.5-10.0) K/mm3 RBC 3.55 L (4.2-5.4) M/mm3 Hgb 11.0 L (12.0-15.0) g/dL Hct 34.8 L (37.0-47.0) % MCV 98.0 (80-100) fl MCH 31.0 (26-34) pg MCHC 31.6 L (32-36) g/dl RDW 14.5 (11.5-14.5) % Plt Count 166 (150-375) k/mm3 MPV 10.0 (7.4-10.4) fl Immature Gran % (Auto) 0.7 H (0-0.5) % Neut % (Auto) 94.5 H (45.5-73.1) % Lymph % (Auto) 2.0 L (18.3-44.2) % [place] % (Auto) 1.5 L (2.6-8.5) % Eos % (Auto) 1.1 (0-4.4) % Baso % (Auto) 0.2 (0.2-1.2) % Lymph # (Auto) 0.40 L (0.9-3.2) K/mm3 [place] # (Auto) 0.3 (0.1-0.6) K/mm3 Eos # (Auto) 0.2 (0-0.3) K/mm3 Baso # (Auto) 0.0 (0.0-0.1) K/mm3 Abs Immat Gran (auto) 0.13 H (0.00-0.031) K/mm3 Absolute Neuts (auto) 18.9 H (1.3-6.7) K/mm3 Absolute Nucleated RBC 0.000 (0.0-0.012) K/mm3 Band Neutrophils % 0 (0-6) % Nucleated RBC % 0.0 (0.0-0.2) % Platelet Estimate Adequate (Adequate) Large Platelets Present Hypochromasia 1+ Anisocytosis 1+ Schistocytes None seen Sodium 138 (137-145) mmol/L Potassium 4.3 (3.4-5.0) mmol/L Chloride 104 (98-107) mmol/L Carbon Dioxide 23 (22-30) mmol/L Anion Gap 11 (4-12) mmol/L BUN 45 H D (7-17) mg/dL Creatinine 2.76 H (0.7-1.0) mg/dL Estim Creat Clear Calc 16 ml/min Estimated GFR 17 L (59 - ) Glucose 120 H (65-110) mg/dL Lactic Acid 2.4 H (0.7-2.0) mmol/L Calcium 9.7 (8.4-10.2) mg/dL Total Bilirubin 1.1 (0.2-1.3) mg/dL AST 33 (14-36) U/L ALT 15 (6-35) U/L Alkaline Phosphatase 88 (38-126) U/L Total Creatine Kinase 154 H (30-135) U/L Total Protein 6.5 (6.3-8.2) g/dL Albumin 3.8 (3.5-5.1) g/dL Urine Color [place] (Yellow) Urine Appearance Cloudy H (Clear) Urine pH 5.5 (5.0-9.0) Ur Specific [place] 1.025 (1.001-1.035) Urine Protein 3+ H (Negative) mg/dL Urine Glucose (UA) Negative (Negative) mg/dL Urine Ketones Trace H (Negative) mg/dL Ur Blood (Man) 3+ H (Negative) Urine Nitrate Positive H (Negative) Urine Bilirubin 1+ H (Negative) Urine Urobilinogen 1.0 (<2.0) mg/dL Add Ur Microanalysis Reviewed Leukocyte Esterase Rfl 1+ H (Negative) XANDER/UL Urine RBC >100 H (0-2) /hpf Urine WBC 21-50 H (0-3) /hpf Ur Squamous Epith Cells Occasional (Few) /hpf Urine Bacteria 4+ H /hpf Urine Casts 3-5 Urine Yeast (Budding) Present H (None) /hpf Nasal MRSA (PCR) (NOT DETECTE) 05/08/25 Range/Units 06:29 WBC (4.5-10.0) K/mm3 RBC (4.2-5.4) M/mm3 Hgb (12.0-15.0) g/dL Hct (37.0-47.0) % MCV (80-100) fl MCH (26-34) pg MCHC (32-36) g/dl RDW (11.5-14.5) % Plt Count (150-375) k/mm3 MPV (7.4-10.4) fl Immature Gran % (Auto) (0-0.5) % Neut % (Auto) (45.5-73.1) % Lymph % (Auto) (18.3-44.2) % [place] % (Auto) (2.6-8.5) % Eos % (Auto) (0-4.4) % Baso % (Auto) (0.2-1.2) % Lymph # (Auto) (0.9-3.2) K/mm3 [place] # (Auto) (0.1-0.6) K/mm3 Eos # (Auto) (0-0.3) K/mm3 Baso # (Auto) (0.0-0.1) K/mm3 Abs Immat Gran (auto) (0.00-0.031) K/mm3 Absolute Neuts (auto) (1.3-6.7) K/mm3 Absolute Nucleated RBC (0.0-0.012) K/mm3 Band Neutrophils % (0-6) % Nucleated RBC % (0.0-0.2) % Platelet Estimate (Adequate) Large Platelets Hypochromasia Anisocytosis Schistocytes Sodium (137-145) mmol/L Potassium (3.4-5.0) mmol/L Chloride (98-107) mmol/L Carbon Dioxide (22-30) mmol/L Anion Gap (4-12) mmol/L BUN (7-17) mg/dL Creatinine (0.7-1.0) mg/dL Estim Creat Clear Calc ml/min Estimated GFR (59 - ) Glucose (65-110) mg/dL Lactic Acid 1.3 (0.7-2.0) mmol/L Calcium (8.4-10.2) mg/dL Total Bilirubin (0.2-1.3) mg/dL AST (14-36) U/L ALT (6-35) U/L Alkaline Phosphatase (38-126) U/L Total Creatine Kinase (30-135) U/L Total Protein (6.3-8.2) g/dL Albumin (3.5-5.1) g/dL Urine Color (Yellow) Urine Appearance (Clear) Urine pH (5.0-9.0) Ur Specific [place] (1.001-1.035) Urine Protein (Negative) mg/dL Urine Glucose (UA) (Negative) mg/dL Urine Ketones (Negative) mg/dL Ur Blood (Man) (Negative) Urine Nitrate (Negative) Urine Bilirubin (Negative) Urine Urobilinogen (<2.0) mg/dL Add Ur Microanalysis Leukocyte Esterase Rfl (Negative) XANDER/UL Urine RBC (0-2) /hpf Urine WBC (0-3) /hpf Ur Squamous Epith Cells (Few) /hpf Urine Bacteria /hpf Urine Casts Urine Yeast (Budding) (None) /hpf Nasal MRSA (PCR) Not detected (NOT DETECTE) <Bert Anne MD - Last Filed: 05/08/25 06:21> Imaging Data Attestation: I personally reviewed and interpreted this imaging study as follows: <Neda Verduzco APRN - Last Filed: 05/10/25 14:22> My impression: Reviewed x-rays with Dr. Bert Anne. Patient's right shoulder x-ray and bilateral hip x-rays show no acute abnormalities but indicate significant osteoarthritis <Neda Verduzco APRN - Last Filed: 05/10/25 14:22> Radiologist's impression: ITS Impressions Hip/Pelvis X-Ray 05/08/25 05:18 Impression: No acute abnormality. Stable severe degenerative change of the right hip joint with chronic remodeling of the right femoral head which is diminutive in overall appearance. Moderate to advanced degenerative change of the left hip joint, similar to prior exam. Pelvis CT 05/08/25 05:21 Impression: No acute fracture or dislocation seen. Severe degenerative changes of both hips, as detailed above, right worse than left. There is chronic remodeling and deformity of the right femoral head. 15 mm right renal pelvis stone with moderate to severe right hydronephrosis and findings compatible with ATN of the right kidney with patchy retained contrast enhancement of the right renal parenchyma. Shoulder X-Ray 05/08/25 05:24 Impression: Severe glenohumeral joint degenerative change. No acute fracture or dislocation seen. Chest X-Ray 05/08/25 05:25 Impression: Clear lungs. Abdomen/Pelvis CT 05/08/25 05:27 Impression: 16 mm right renal pelvis stone with moderate to severe right hydronephrosis. Patchy retained contrast enhancement of the right renal parenchyma with shotty right perinephric and aortocaval lymph nodes. Findings are consistent with ATN and possible superimposed pyelonephritis. Correlate clinically and with urinalysis. ADDENDUM: 05/08/25 0533 3.1 cm peripherally calcified left upper quadrant lesion is presumably arising from the left adrenal gland, indeterminate, though likely benign given the dense eggshell calcification. Abdomen X-Ray 05/08/25 05:31 Impression: Probable 16 mm stone projecting just the right of the L3-L4 disc space, which correlates with findings on prior CT. 3.1 cm peripherally calcified mass in left upper lobe which corresponds prior CT scan, possibly adrenal lesion. <Bert Anne MD - Last Filed: 05/08/25 06:21> ECG Data EKG #1: ECG completion date: 05/08/25 <Bert Anne MD - Last Filed: 05/08/25 06:21> ECG completion time: 01:34 <Bert Anne MD - Last Filed: 05/08/25 06:21> EKG Interpretation: tachycardia (108), atrial flutter, non-specific ST changes and RBBB (incomplete) <Bert Anne MD - Last Filed: 05/08/25 06:21> Critical Care Time Critical Care Time Critical Care Time: Yes <Bert Anne MD - Last Filed: 05/08/25 06:21> Total Critical Care Time: 45 <Bert Anne MD - Last Filed: 05/08/25 06:21> Discharge Plan Discharge Clinical Impression: Sepsis, Acute kidney injury, Pyelonephritis, Obstruction of right ureteropelvic junction (UPJ) due to stone <Neda Verduzco APRN - Last Filed: 05/10/25 14:22> Patient Disposition: Still a Patient <Neda Verduzco APRN - Last Filed: 05/10/25 14:22> Condition: Stable <Neda Verduzco APRN - Last Filed: 05/10/25 14:22>
--- NOTE | 2025-05-08 01:29 | ECG_ITS ---
Test Date: 2025-05-08 01:34:57 Measurements Intervals [place] Rate: 108 P: 0 FL: 0 QRS: -20 QRSD: 95 T: -16 QT: 316 QTc: 424 Interpretive Statements ATRIAL FLUTTER/TACHYCARDIA WITH RAPID VENTRICULAR RESPONSE LOW QRS VOLTAGE IN PRECORDIAL LEADS INCOMPLETE RIGHT BUNDLE BRANCH BLOCK BORDERLINE ST-T WAVE ABNORMALITY- DIFFUSE LEADS BASELINE ARTIFACT- II, III, V1, V4-V6 ABNORMAL ECG No previous ECG available for comparison Electronically Signed On 05-08-2025 06:29:00 CDT by Sanford Gil D.O.
[2025-05-08] MEDS: SODIUM CHLORIDE 0.9% IV 1,000 ML 999 ML IV CONT ×3 (02:40→03:50)
[2025-05-08] MEDS: MORPHINE SULFATE (*CRX) 2 MG/ML INJ IV PUSH (02:41)
[2025-05-08 02:57] LABS: Basophils Percent Auto 0.2 % (0.2-1.2); Eosinophils Absolute Auto 0.2 K/mm3 (0-0.3); Eosinophils Percent Auto 1.1 % (0-4.4); Hematocrit 34.8 % (37.0-47.0); Immature Granulocyte Absolute 0.13 K/mm3 (0.00-0.031); Immature Granulocyte Percent A 0.7 % (0-0.5); Mean Corpuscular HGB Conc 31.6 g/dl (32-36); Monocytes Absolute Auto 0.3 K/mm3 (0.1-0.6); Monocytes Percent Auto 1.5 % (2.6-8.5); Neutrophils Absolute Auto 18.9 K/mm3 (1.3-6.7); Neutrophils Percent Auto 94.5 % (45.5-73.1); Platelet Count Result 166 k/mm3 (150-375); Red Blood Count 3.55 M/mm3 (4.2-5.4); Red Cell Distribution Width 14.5 % (11.5-14.5)
[2025-05-08 03:09] LABS: Alanine Aminotransferase 15 U/L (6-35); Albumin Level 3.8 g/dL (3.5-5.1); Alkaline Phosphatase 88 U/L (38-126); Anion Gap 11 mmol/L (4-12); Aspartate Amino Transferase 33 U/L (14-36); Bilirubin,Total 1.1 mg/dL (0.2-1.3); Blood Urea Nitrogen 45 mg/dL (7-17); Calcium 9.7 mg/dL (8.4-10.2); Carbon Dioxide 23 mmol/L (22-30); Chloride 104 mmol/L (98-107); Estimated CRCL calculation 16 ml/min; Estimated Glomerular Filt Rate 17; Glucose 120 mg/dL (65-110); Potassium 4.3 mmol/L (3.4-5.0); Sodium 138 mmol/L (137-145); Total Protein 6.5 g/dL (6.3-8.2)
[2025-05-08 03:16] LABS: Band Neutrophils Percent 0 % (0-6)
[2025-05-08 03:17] LABS: Anisocytosis 1+; Hypochromasia 1+; Large Platelets Present; Platelet Estimate Adequate (Adequate); Schistocytes None Seen
[2025-05-08 03:46] LABS: Add Urine Microscopic? YES
[2025-05-08 03:47] LABS: Appearance Urine Cloudy (Clear); Bilirubin Urine 1+ (Negative); Blood Urine 3+ (Negative); Color Urine Amber (Yellow); Glucose Urine UA Negative (Negative); Ketones Urine Trace mg/dL (Negative); Leukocyte Esterase Ur 1+ LEU/UL (Negative); Nitrate Urine Positive (Negative); Protein Urine 3+ mg/dL (Negative); Specific Grav Ur 1.025 (1.001-1.035); pH Urine 5.5 (5.0-9.0)
[2025-05-08] MEDS: SODIUM CHLORIDE 0.9% IV 900 ML 999 ML IV CONT (03:50)
[2025-05-08 03:56] LABS: Bacteria Urine 4+ /hpf; Budding Yeast Urine Present /hpf; Need Manual Microscopic Reviewed; RBC Urine >100 /hpf (0-2); Squamous Epithelial Cell Urine Occasional /hpf (Few); WBC Urine 21-50 /hpf (0-3)
[2025-05-08 04:00] LABS: Lactic Acid Reflex 2.4 mmol/L (0.7-2.0)
[2025-05-08 04:38] LABS: Creatine Kinase 154 U/L (30-135)
[2025-05-08 05:41] LABS: Reflex Lactic Acid Yes or No Add Lactic
[2025-05-08] MEDS: SODIUM CHLORIDE 0.9% IV 1,000 ML 999 ML (05:45)
--- NOTE | 2025-05-08 06:01 | PC.NURSE ---
Additional 1 L bolus of NS started per Dr. Anne verbal order. Pt remains A&Ox4.
[2025-05-08] MEDS: NOREPINEPHRINE 8 MG/D5W 250 ML 8 MG/250 ML BAG 9.38 MG IV CONT (06:24)
[2025-05-08 06:55] LABS: Lactic Acid 1.3 mmol/L (0.7-2.0)
--- NOTE | 2025-05-08 06:57 | PC.NURSE ---
Spoke with pt's niece Roselia, and updated her on pt status. Roselia was informed about central line insertion as well as upcoming surgery to address the large stone in her kidney. All questions answered. Pt remains A&Ox4.
--- OUTSIDE RECORDS SUMMARY | 2025-05-08 07:02 | XMS_ITS | Encounter Summary ---
Author Organization [facility] Healthcare Address [address] [place] [address] Care Team Providers Care Quality Assurance Monitor Body Name Role Phone Fabienne Beasley MD Primary Care Provider [phone] Reason for Referral * MRI/CAT/PET Scan (Routine) - Closed Specialty Diagnoses / Procedures Referred By Estiven blanc Referred To Contact Radiology Diagnoses Abnormal result of other cardiovascular function study Procedures CTA Heart and Coronary Arteries W Morphology when Performed Sanford Gil DO [address] [place] [id number] Phone: tel: fax: [address] [address] Referral ID Status Reason Start Date Expiration Date Visits Re quested Visits Authorized [id number] Closed 03/30/2025 04/29/2026 1 1 Reason for Visit * MRI/CAT/PET Scan (Routine) - Closed Specialty Diagnoses / Procedures Referred By Contac jayashree Referred To Contact Radiology Diagnoses Abnormal result of other cardiovascular function study Procedures CTA Heart and Coronary Arteries W Morphology when Performed Sanford Gil DO [address] [address] Phone: tel: fax: [place] [address] [place] [address] Referral ID Status Reason Start Date Expiration Date Visits Re quested Visits Authorized [id number] Closed 03/30/2025 04/29/2026 1 1 Encounter Details Date Type Department Care Team (Latest Contact Info) Description 05/06/2025 1:10 PM CDT - 05/06/2025 11:59 PM CDT Hospital Encounter [facility] [address] [place] [id number] Abnormal result of other cardiovascular function study [...] on file Legal Sex Female 6:32 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
--- OUTSIDE RECORDS SUMMARY | 2025-05-08 07:02 | XMS_ITS | Clinical Summary ---
Author Organization [facility] Address [address] [address] Phone Care Team Providers Care Area Intelligence Technician Name Role Phone Fabienne Beasley MD Primary Care Provider [phone] Allergies No known active allergies Medications allopurinol [...] mouth every 4 hours as needed. Active Harmony-3 Fatty Acids (FISH OIL PO) Take by [...] Influenza Immunization (#1) 2024 SARS-COV-2 Immunization ( - season) 2024 Colonoscopy Discontinued 07/10/2018 Colorectal Cancer Screening Discontinued Retired - Colonoscopy High Risk Discontinued 8 Cologuard Discontinued Hepatitis B Immunization Aged Out [...] Recently Relevant to Health Maintenance Insurance MEDICARE [facility] Care Teams Area Intelligence Technician Relationship Specialty Start Date End Date Fabienne Beasley MD [address] [place] [address] PCP - General Family Medicine 07/15/18
--- OUTSIDE RECORDS SUMMARY | 2025-05-08 07:02 | XMS_ITS | Referral Summary ---
Author Organization [facility] Address [address] [place] [address] Care Team Providers Care Sales Specialist Name Role Phone Fabienne Beasley MD Primary Care Provider [phone] Encounters Date Type Department Care Team Description 05/06/2025 1:10 PM CDT - 05/06/2025 11:59 PM CDT Hospital Encounter [facility] [address] [place] [address] Abnormal result of other cardiovascular [...] 1 tablet (100 mcg total) by mouth frequency checker before breakfast 0 Active omega-3 fatty acids-fish oil 300-1,000 mg capsule Take 2 capsules (2 g total) by mouth every morning Active cholecalciferol , vitamin D3, (VITAMIN D3 ORAL) Take 1 capsule by mouth every morning Active multivit-minera [id number]-[id number]-[id number] tablet Take 1 tablet by mouth every [...] on file Legal Sex Female 6:32 PM DONATIONS ATTENDANT Gender Identity Not on file Sexual Orientation Not on file Last Filed Vital Signs Vital Sign Reading Time Taken Comments Blood Pressure 126/78 05/06/2025 1:25 PM CDT Pulse 72 05/06/2025 1:25 PM CDT Temperature 36.7 C (98.1 F) 09/29/2024 1:53 PM DONATIONS ATTENDANT Respiratory Rate 13 05/06/2025 1:25 PM CDT Oxygen Saturation 100% 12/15/2024 2:30 PM DONATIONS ATTENDANT Inhaled Oxygen Concentration - - Weight 89.8 kg (198 lb) 12/15/2024 2:33 PM DONATIONS ATTENDANT Height 152.4 cm (5') 12/15/2024 2:33 PM DONATIONS ATTENDANT Body Mass Index 38.67 12/15/2024 2:33 PM DONATIONS ATTENDANT Plan of Treatment Not on file Procedures [...] lt from Last 3 Months Insurance MEDICARE [facility] MEDICARE MEDICARE [facility] FEDERAL Member Subscriber Plan / Payer (Ef fective 2007-Present) Name:Emani Simms Relation to Subscriber:Self Name:Emani Simms Payer ID:[id number] (NAIC) Group ID:[id number] Type:[facility] Address: [address] [place] [id number] Care Teams Sales Specialist Relationship Specialty Start Date End Date Fabienne Beasley MD PCP - General Family Medicine 09/13/20
--- OUTSIDE RECORDS SUMMARY | 2025-05-08 07:02 | XMS_ITS | Encounter Summary ---
Author Organization [facility] Healthcare Address [address] [place] [address] Care Team Providers Care Municipal Bond Trader Name Role Phone Fabienne Beasley MD Primary Care Provider [phone] Reason for Visit * Auth/Cert (Routine) Specialty Diagnoses / Procedures Referred By Contac t Referred To Contact Diagnoses Primary osteoarthritis of right hip Primary osteoarthritis of right hip [M16.11] Procedures SC ARTHRP ACETBLR/PROX FEM PROSTC AGRFT/ALGRFT ARTHROPLASTY TOTAL HIP - CAPRICE ROBOTIC ARM - DEVIN-RIGHT Referral ID Status Reason Start Date Expiration Date Visits Re quested Visits Authorized [id number] 1 1 Encounter Details Date Type Department Care Team (Late st Contact Info) Description 12/31/2024 Hospital Encounter [facility] Operating Room [address] [place] [address] Bert Fierro MD [address] [facility] [address] [place] [address] Social History Tobacco Use Types Packs/Day Years [...] on file 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
--- OUTSIDE RECORDS SUMMARY | 2025-05-08 07:02 | XMS_ITS | Clinical Summary ---
Author Organization [facility] Address [address] [place] [address] Care Team Providers Care Document Imaging Manager Name Role Phone Fabienne Beasley MD Primary Care Provider [phone] Allergies No known active allergies Medications gabapentin [...] 1 tablet (100 mcg total) by mouth risk control specialist before breakfast 0 Active omega-3 fatty acids-fish oil 300-1,000 mg capsule Take 2 capsules (2 g total) by mouth every morning Active cholecalciferol , vitamin D3, (VITAMIN D3 ORAL) Take 1 capsule by mouth every morning Active multivit-minera d-sftz-ztbwcs tablet Take 1 tablet by mouth every morning Active Active Problems Problem Noted Date Diagnosed Date Primary osteoarthritis of right hip 09/10/2024 Hip pain 09/29/2020 Encounters Date Type Department Care Team Description 05/06/2025 1:10 PM CDT - 05/06/2025 11:59 PM CDT Hospital Encounter [facility] [address] [place] [address] Abnormal result of other cardiovascular function study [...] on file Legal Sex Female 6:32 PM VERIFIER Gender Identity Not on file Sexual Orientation Not on file Obstetrics History Last Filed Vital Signs Vital Sign Reading Time Taken Comments Blood Pressure 126/78 05/06/2025 1:25 PM CDT Pulse 72 05/06/2025 1:25 PM CDT Temperature 36.7 C (98.1 F) 09/29/2024 1:53 PM VERIFIER Respiratory Rate 13 05/06/2025 1:25 PM CDT Oxygen Saturation 100% 12/15/2024 2:30 PM VERIFIER Inhaled Oxygen Concentration - - Weight 89.8 kg (198 lb) 12/15/2024 2:33 PM VERIFIER Height 152.4 cm (5') 12/15/2024 2:33 PM VERIFIER Body Mass Index 38.67 12/15/2024 2:33 PM VERIFIER Plan of Treatment Health Maintenance Due Date [...] lt from Last 3 Months Insurance MEDICARE [facility] MEDICARE MEDICARE [facility] Care Teams Document Imaging Manager Relationship Specialty Start Date End Date Fabienne Beasley MD PCP - General Family Medicine 09/13/20
--- OUTSIDE RECORDS SUMMARY | 2025-05-08 07:02 | XMS_ITS | Continuity of Care Document ---
Author Organization [facility] Address [address] [facility] [address] [place] [address] Phone Care Team Providers Care Director Biologics Name Role Phone Yonathan Vick MD, MD [...] tablet - Active Procedures Procedure Date Office/outpatient visit,[facility] BMI Documented Above Normal Limit F/U Pl an Doc Office/outpatient visit,[facility] 2023 Advance Directives Directive Yes / No Effective Date File Name No Information Encounters Encounter Description Practice Location Reason(s) For Visit Diagnoses Date Provider Providers Copied on Encounter [facility], [address], [id number], [place] tel:[phone] [facility] No Information 4 Nava miramontes. [address] [facility] [place] [address], [place], [place], [id number] , [place]. tel:[phone] Office/outpat ient visit,[facility], [address], [id number], [place] tel:[phone] [facility] right hip (chief complaint) Unilateral primary osteoarthritis , right hip 4 Nava miramontes. [address] [facility], [place], [place], [id number] , [place]. tel: [phone] Referring Provider: Yonathan Morse, [address] [facility] [address] [facility], [place], [address]. tel:[phone] Office/outpat ient visit,[facility], [facility], [address] [facility] [address], [place], [id number], tel:[phone] [facility] Right hip (chief complaint) Pain in right hipIdiopathic aseptic necrosis of right femur 4 Elijah Mena. [address] [facility], [place] [address], [place], [place], [id number] , . tel: [phone] Referring Provider: Rajesh Lewis, [address] [facility] [address], [place], [address]. tel:[phone] Family History Family Member Type Diagnosis Age [...] tion(s) [place] [id number] Kathe Mathiston Albaro morse [facility] [id number] Social History Type Description Quantity Date Captured [...] n, with posterior approach and location at [facility] were reviewed in depth, as was [...] on Dr. Yonathan Vick surgical schedule at [facility], as well as scheduled for an intraoffice presurgical evaluation. Prescription for Tylenol No. 4 with codeine will be sent to her pharmacy as she is intolerant of tramadol. She was advised that this is a one-time prescription to be filled to get her to surgery, and she will continue the use of diclofenac and gabapentin as needed. She will add [id number]-opk-mubkshr NSAIDs and analgesics, being advised not to consume more than 4000 mg of acetaminophen per day. She may initiate the use of topical products such as Voltaren gel or lidocaine patch. All questions were answered and concerns addressed.Dictation completed with [employer] software, grammatical variances and spelling errors may inadvertently occur. Related to Idiopathic aseptic necrosis of right femur Assessments Type Assessment Date No Information Patient Care Teams Name Effective Dates (start - stop) Status Members No Information
--- NOTE | 2025-05-08 07:16 | WPDURCON ---
Assessment and Plan Assessment and plan (1) Abnormal urinalysis: Code(s): R82.90 - Unspecified abnormal findings in urine Status: Acute (2) Obstruction of right ureteropelvic junction (UPJ) due to stone: Code(s): N20.1 - Calculus of ureter Status: Acute (3) Acute kidney injury: Code(s): N17.9 - Acute kidney failure, unspecified Status: Acute (4) Sepsis: Code(s): A41.9 - Sepsis, unspecified organism Status: Acute Plan She be taken emergently to the OR for cystoscopy and right ureteral stent placement. She understands we will not be dealing with the stone at this time. She will be admitted to the ICU postoperatively for management of sepsis. She understands risks of bleeding, infection, damage to the urinary tract, inability to place the stent. She agrees to proceed. Urology Consult Note HPI Date Seen: 05/08/25 Requesting Physician: Yaya Bishop MD Primary Care Provider: Fabienne Beasley MD Consult Narrative Narrative: Emani Simms is a 79 year old female who had a fall at home. She had hip pain and back pain which progressively increased. This prompted her to come to the emergency room. She had a CT scan of the pelvis and abdomen which showed large right UPJ stone measuring 16 mm with hydronephrosis. She had contrast still in the kidney from a imaging study she had 2 days ago. This indicates ATN and obstruction. She was found have elevated white count. An abnormal urinalysis. She was also found to have hypotension. Central line was placed. Urology was consulted. She is and acute renal failure and is likely showing signs of early sepsis due to this obstructing stone. She will be taken to the operating room urgently for a right ureteral stent placement. She has no prior history of kidney stones. She denies fevers but does endorse chills. She does endorse back pain but she felt this was secondary to her spinal stenosis Review of Systems Review of Systems: All systems reviewed & are unremarkable except as noted in HPI and below [facility] Past Medical History Medical History (Updated 05/08/25 @ 07:20 by Yaya Bishop MD) Sepsis Acute kidney injury Obstruction of right ureteropelvic junction (UPJ) due to stone Chronic renal insufficiency, stage III (moderate) Spinal stenosis of lumbar region Colon polyp Essential (primary) hypertension H/O: gout Hypothyroidism, unspecified Lumbar radiculopathy Lymphedema Pre-diabetes Primary osteoarthritis of right hip Surgical History Surgical History H/O colonoscopy with polypectomy (~06/2018) Family History Family History Mother Carcinoma of colon Mother Diabetes mellitus Mother Family history of arthritis Father Malignant neoplasm of prostate Sibling Hypertension Mother Hypertension Other Cerebrovascular accident Family history of coronary artery disease Family history of gout Family history of heart disease in male family member before age 55 Family history of malignant neoplasm Family history of tuberculosis Social History Social History Smoking status: Never smoker Second hand tobacco smoke exposure: No Alcohol intake: current Substance use: never Substance use type: does not use Do You Feel Safe in your Home?: Yes Lack of Transportation: No Lack of Food: Never True Current Housing: I Have Housing Concerned About Future Housing: No Difficulty Paying Gas/Electric Bills: No Difficulty Paying for Meds: No Currently Unemployed: No Education: High School Diploma/GED Difficulty w/ Childcare or Family Care: No Occupation/Education: retired Gender identity (if verbalized by the patient): Female Sexual Orientation (if Verbalized by the Patient): Straight or Heterosexual Spiritual care concerns: No Agree to blood products: Yes Meds Home Medications and Allergies Home Medications ?Medication ?Instructions ?Recorded ?Confirmed ?Type multivit with minerals-iron 18 1 tablet PO DAILY 09/02/20 03/25/25 History mg-folic ac 400 mcg-vit K 25 mcg tablet (Adults Multivitamin) cholecalciferol (vitamin D3) 25 25 mcg PO DAILY #30 caps 06/14/22 03/25/25 Rx mcg (1,000 unit) capsule allopurinol 100 mg tablet 100 mg PO DAILY #90 tabs 01/06/25 03/25/25 Rx losartan 50 mg tablet 50 mg PO DAILY #90 tabs 01/29/25 03/25/25 Rx gabapentin 300 mg capsule 300 mg PO .COMPLEX #120 caps 02/08/25 03/25/25 Rx levothyroxine 100 mcg tablet 100 mcg PO DAILY #90 tabs 03/20/25 03/25/25 Rx apixaban 5 mg tablet (Eliquis) 5 mg PO BID #60 tabs 04/10/25 Rx metoprolol succinate 25 mg 25 mg PO DAILY #30 tabs 04/12/25 Rx tablet,extended release 24 hr Allergies Allergy/AdvReac Type Severity Reaction Status Date / Time No Known Allergies Allergy Unknown Verified 05/08/25 06:00 Vital Signs Vital Signs - 24 hr 05/07/25 23:17 05/08/25 00:15 05/08/25 00:43 Temperature 99.1 F Pulse Rate 107 H 109 H 109 H Respiratory Rate 23 H 23 H 16 Blood Pressure 110/50 L Pulse Oximetry 95 98 94 Oxygen Delivery Room Air Oxygen Flow Rate 05/08/25 00:45 05/08/25 00:47 05/08/25 01:00 Temperature Pulse Rate 110 H 110 H 109 H Respiratory Rate 32 H 21 H 31 H Blood Pressure 123/107 H Pulse Oximetry 96 95 95 Oxygen Delivery Oxygen Flow Rate 05/08/25 01:02 05/08/25 01:15 05/08/25 01:16 Temperature Pulse Rate 109 H 109 H 109 H Respiratory Rate 22 H 26 H 28 H Blood Pressure 80/48 L 76/44 L Pulse Oximetry 93 95 Oxygen Delivery Oxygen Flow Rate 05/08/25 01:24 05/08/25 01:30 05/08/25 01:45 Temperature Pulse Rate 108 H 108 H 109 H Respiratory Rate 24 H 27 H 29 H Blood Pressure 105/45 L Pulse Oximetry 98 93 97 Oxygen Delivery Oxygen Flow Rate 05/08/25 02:04 05/08/25 02:15 05/08/25 02:30 Temperature Pulse Rate 109 H 108 H 106 H Respiratory Rate 18 25 H 25 H Blood Pressure Pulse Oximetry 93 97 Oxygen Delivery Oxygen Flow Rate 05/08/25 02:45 05/08/25 02:50 05/08/25 03:04 Temperature Pulse Rate 107 H 105 H Respiratory Rate 27 H 25 H Blood Pressure Pulse Oximetry 95 95 Oxygen Delivery Nasal Cannula Oxygen Flow Rate 2 05/08/25 03:10 05/08/25 03:15 05/08/25 03:15 Temperature 98.4 F Pulse Rate 106 H 105 H Respiratory Rate 28 H 21 H Blood Pressure 61/46 L Pulse Oximetry 95 Oxygen Delivery Oxygen Flow Rate 05/08/25 03:16 05/08/25 03:23 05/08/25 03:30 Temperature Pulse Rate 105 H 105 H 104 H Respiratory Rate 27 H 24 H 24 H Blood Pressure 71/51 L 65/44 L Pulse Oximetry 95 96 96 Oxygen Delivery Oxygen Flow Rate 05/08/25 03:31 05/08/25 03:45 05/08/25 03:46 Temperature Pulse Rate 105 H 104 H 104 H Respiratory Rate 23 H 24 H 24 H Blood Pressure 67/45 L 65/40 L Pulse Oximetry 95 98 98 Oxygen Delivery Oxygen Flow Rate 05/08/25 04:00 05/08/25 04:01 05/08/25 04:07 Temperature Pulse Rate 104 H 104 H 103 H Respiratory Rate 20 19 19 Blood Pressure 56/26 L 64/46 L Pulse Oximetry 100 Oxygen Delivery Oxygen Flow Rate 05/08/25 04:08 05/08/25 04:33 05/08/25 04:43 Temperature Pulse Rate 103 H 103 H Respiratory Rate 18 14 Blood Pressure 93/45 L Pulse Oximetry 95 Oxygen Delivery Oxygen Flow Rate 05/08/25 04:45 05/08/25 05:00 05/08/25 05:01 Temperature Pulse Rate 103 H 103 H 103 H Respiratory Rate 22 H 20 19 Blood Pressure 82/43 L 70/48 L Pulse Oximetry 100 Oxygen Delivery Oxygen Flow Rate 05/08/25 05:16 05/08/25 05:30 05/08/25 05:31 Temperature Pulse Rate 102 H 102 H 102 H Respiratory Rate 20 17 27 H Blood Pressure 72/51 L Pulse Oximetry Oxygen Delivery Oxygen Flow Rate 05/08/25 05:37 05/08/25 06:24 05/08/25 06:40 Temperature Pulse Rate 103 H 100 Respiratory Rate 19 Blood Pressure 81/57 L 79/55 L 85/56 L Pulse Oximetry 96 Oxygen Delivery Oxygen Flow Rate 05/08/25 07:04 05/08/25 07:08 Temperature Pulse Rate 103 H 103 H Respiratory Rate 20 Blood Pressure 89/55 L 84/47 L Pulse Oximetry 96 Oxygen Delivery Oxygen Flow Rate Exam Const: General: cooperative, alert, awake and Physically active Orientation/consciousness: No confusion HENMT: Head: normal to inspection Eyes: General: appearance normal, both eyes and all related structures Neck: Neck: normal visual inspection Chest: Chest palpation & inspection: normal inspection of the chest Resp: Effort & Inspection: normal respiratory effort, able to speak in complete sentences, no cough and no respiratory distress GI: Inspection: normal to inspection Skin: General skin exam: normal color and no rashes or lesions noted Neuro: General: patient oriented x3 and moves all extremities Extrem: General: normal to inspection Psych: Appearance: grossly normal and well kempt Results Labs 05/08/25 02:46 05/08/25 02:46 Labs: Short CBC 05/08/25 Range/Units 02:46 WBC 20.0 H (4.5-10.0) K/mm3 Hgb 11.0 L (12.0-15.0) g/dL Hct 34.8 L (37.0-47.0) % Plt Count 166 (150-375) k/mm3 BMP 05/08/25 02:46 Sodium 138 Potassium 4.3 Chloride 104 Carbon Dioxide 23 BUN 45 H D Creatinine 2.76 H Glucose 120 H Calcium 9.7 Cardiac Enzymes 05/08/25 Range/Units 02:46 Total Creatine Kinase 154 H (30-135) U/L Liver Function 05/08/25 Range/Units 02:46 Total Bilirubin 1.1 (0.2-1.3) mg/dL AST 33 (14-36) U/L ALT 15 (6-35) U/L Alkaline Phosphatase 88 (38-126) U/L Albumin 3.8 (3.5-5.1) g/dL Urine 05/08/25 Range/Units 03:19 Urine Color Hodan (Yellow) Urine Appearance Cloudy H (Clear) Urine pH 5.5 (5.0-9.0) Ur Specific Shirley 1.025 (1.001-1.035) Urine Protein 3+ H (Negative) mg/dL Urine Glucose (UA) Negative (Negative) mg/dL Imaging My impression: CT scan few by myself. She has an obstructing right UPJ stone with moderate hydronephrosis. There is contrast retained in the collecting system. Stone is visible on KUB
--- NOTE | 2025-05-08 07:21 | WPDHPUPDATE1 ---
History and Physical Update Update Date/Time: 05/08/25 07:21 History and Physical has been reviewed, including an updated exam of the patient. There are NO changes in the patient's condition. Risks, benefits, and alternatives have been discussed and questions answered. Patient agrees to proceed with procedure.
--- NOTE | 2025-05-08 07:26 | P.PNAN_ITS ---
Anes - Initial Pre Proc Eval Procedure: Operation Date: 05/08/25 07:00 Proposed Procedures p Cystoscopy, Right Stent Placement - Yaya Bishop MD Date/Time: 05/08/25 07:26 Surgeon: Yaya Bishop MD Pre Op Diagnosis: PAIN ALL OVER FROM FALL Patient Data Age: 79 Gender: F Height: 1.52 m Weight: 94.5 kg Last Vital Signs Temp 36.9 C 05/08/25 03:15 Pulse 103 H 05/08/25 07:08 Resp 20 05/08/25 07:04 BP 110/53 L 05/08/25 07:18 Pulse Ox 96 05/08/25 07:04 O2 Del Method Nasal Cannula 05/08/25 02:50 O2 Flow Rate 2 05/08/25 02:50 Allergies Allergy/AdvReac Type Severity Reaction Status Date / Time No Known Allergies Allergy Unknown Verified 05/08/25 06:00 Home Medications ?Medication ?Instructions ?Recorded ?Confirmed ?Type multivit with minerals-iron 18 1 tablet PO DAILY 09/02/20 03/25/25 History mg-folic ac 400 mcg-vit K 25 mcg tablet (Adults Multivitamin) cholecalciferol (vitamin D3) 25 25 mcg PO DAILY #30 caps 06/14/22 03/25/25 Rx mcg (1,000 unit) capsule allopurinol 100 mg tablet 100 mg PO DAILY #90 tabs 01/06/25 03/25/25 Rx losartan 50 mg tablet 50 mg PO DAILY #90 tabs 01/29/25 03/25/25 Rx gabapentin 300 mg capsule 300 mg PO .COMPLEX #120 caps 02/08/25 03/25/25 Rx levothyroxine 100 mcg tablet 100 mcg PO DAILY #90 tabs 03/20/25 03/25/25 Rx apixaban 5 mg tablet (Eliquis) 5 mg PO BID #60 tabs 04/10/25 Rx metoprolol succinate 25 mg 25 mg PO DAILY #30 tabs 04/12/25 Rx tablet,extended release 24 hr Laboratory Tests 05/08/25 05/08/25 05/08/25 02:46 03:19 03:34 WBC 20.0 H K/mm3 (4.5-10.0) RBC 3.55 L M/mm3 (4.2-5.4) Hgb 11.0 L g/dL (12.0-15.0) Hct 34.8 L % (37.0-47.0) MCV 98.0 fl (80-100) MCH 31.0 pg (26-34) MCHC 31.6 L g/dl (32-36) RDW 14.5 % (11.5-14.5) Plt Count 166 k/mm3 (150-375) MPV 10.0 fl (7.4-10.4) Immature Gran % (Auto) 0.7 H % (0-0.5) Neut % (Auto) 94.5 H % (45.5-73.1) Lymph % (Auto) 2.0 L % (18.3-44.2) [place] % (Auto) 1.5 L % (2.6-8.5) Eos % (Auto) 1.1 % (0-4.4) Baso % (Auto) 0.2 % (0.2-1.2) Lymph # (Auto) 0.40 L K/mm3 (0.9-3.2) [place] # (Auto) 0.3 K/mm3 (0.1-0.6) Eos # (Auto) 0.2 K/mm3 (0-0.3) Baso # (Auto) 0.0 K/mm3 (0.0-0.1) Abs Immat Gran (auto) 0.13 H K/mm3 (0.00-0.031) Absolute Neuts (auto) 18.9 H K/mm3 (1.3-6.7) Absolute Nucleated RBC 0.000 K/mm3 (0.0-0.012) Band Neutrophils % 0 % (0-6) Nucleated RBC % 0.0 % (0.0-0.2) Platelet Estimate Adequate (Adequate) Large Platelets Present Hypochromasia 1+ Anisocytosis 1+ Schistocytes None seen Sodium 138 mmol/L (137-145) Potassium 4.3 mmol/L (3.4-5.0) Chloride 104 mmol/L (98-107) Carbon Dioxide 23 mmol/L (22-30) Anion Gap 11 mmol/L (4-12) BUN 45 H D mg/dL (7-17) Creatinine 2.76 H mg/dL (0.7-1.0) Estim Creat Clear Calc 16 ml/min Estimated GFR 17 L (59 - ) Glucose 120 H mg/dL (65-110) Lactic Acid 2.4 H mmol/L (0.7-2.0) Calcium 9.7 mg/dL (8.4-10.2) Total Bilirubin 1.1 mg/dL (0.2-1.3) AST 33 U/L (14-36) ALT 15 U/L (6-35) Alkaline Phosphatase 88 U/L (38-126) Total Creatine Kinase 154 H U/L (30-135) Total Protein 6.5 g/dL (6.3-8.2) Albumin 3.8 g/dL (3.5-5.1) Urine Color [place] (Yellow) Urine Appearance Cloudy H (Clear) Urine pH 5.5 (5.0-9.0) Ur Specific [place] 1.025 (1.001-1.035) Urine Protein 3+ H mg/dL (Negative) Urine Glucose (UA) Negative mg/dL (Negative) Urine Ketones Trace H mg/dL (Negative) Ur Blood (Man) 3+ H (Negative) Urine Nitrate Positive H (Negative) Urine Bilirubin 1+ H (Negative) Urine Urobilinogen 1.0 mg/dL (<2.0) Add Ur Microanalysis Reviewed Leukocyte Esterase Rfl 1+ H XANDER/UL (Negative) Urine RBC >100 H /hpf (0-2) Urine WBC 21-50 H /hpf (0-3) Ur Squamous Epith Cells Occasional /hpf (Few) Urine Bacteria 4+ H /hpf Urine Casts 3-5 Urine Yeast (Budding) Present H /hpf (None) Nasal MRSA (PCR) 05/08/25 06:29 WBC RBC Hgb Hct MCV MCH MCHC RDW Plt Count MPV Immature Gran % (Auto) Neut % (Auto) Lymph % (Auto) [place] % (Auto) Eos % (Auto) Baso % (Auto) Lymph # (Auto) [place] # (Auto) Eos # (Auto) Baso # (Auto) Abs Immat Gran (auto) Absolute Neuts (auto) Absolute Nucleated RBC Band Neutrophils % Nucleated RBC % Platelet Estimate Large Platelets Hypochromasia Anisocytosis Schistocytes Sodium Potassium Chloride Carbon Dioxide Anion Gap BUN Creatinine Estim Creat Clear Calc Estimated GFR Glucose Lactic Acid 1.3 mmol/L (0.7-2.0) Calcium Total Bilirubin AST ALT Alkaline Phosphatase Total Creatine Kinase Total Protein Albumin Urine Color Urine Appearance Urine pH Ur Specific [place] Urine Protein Urine Glucose (UA) Urine Ketones Ur Blood (Man) Urine Nitrate Urine Bilirubin Urine Urobilinogen Add Ur Microanalysis Leukocyte Esterase Rfl Urine RBC Urine WBC Ur Squamous Epith Cells Urine Bacteria Urine Casts Urine Yeast (Budding) Nasal MRSA (PCR) Pending Patient hx anesthesia problems: none Family hx anesthesia problems: none Results Review: All pre-operative results and documents have been reviewed as part of the pre- operative evaluation. [facility] Past Medical History Medical History Sepsis Acute kidney injury Obstruction of right ureteropelvic junction (UPJ) due to stone Chronic renal insufficiency, stage III (moderate) Spinal stenosis of lumbar region Colon polyp Essential (primary) hypertension H/O: gout Hypothyroidism, unspecified Lumbar radiculopathy Lymphedema Pre-diabetes Primary osteoarthritis of right hip Surgical History Surgical History H/O colonoscopy with polypectomy (~06/2018) Family History Family History Mother Carcinoma of colon Mother Diabetes mellitus Mother Family history of arthritis Father Malignant neoplasm of prostate Sibling Hypertension Mother Hypertension Other Cerebrovascular accident Family history of coronary artery disease Family history of gout Family history of heart disease in male family member before age 55 Family history of malignant neoplasm Family history of tuberculosis Social History Social History Smoking status: Never smoker Second hand tobacco smoke exposure: No Alcohol intake: current Substance use: never Substance use type: does not use Do You Feel Safe in your Home?: Yes Lack of Transportation: No Lack of Food: Never True Current Housing: I Have Housing Concerned About Future Housing: No Difficulty Paying Gas/Electric Bills: No Difficulty Paying for Meds: No Currently Unemployed: No Education: High School Diploma/GED Difficulty w/ Childcare or Family Care: No Occupation/Education: retired Gender identity (if verbalized by the patient): Female Sexual Orientation (if Verbalized by the Patient): Straight or Heterosexual Spiritual care concerns: No Agree to blood products: Yes Anes - Eval Final PreProcedure Day of Procedure 05/08/25 07:26 Patient weight: morbidly obese Heart: tachycardia Lungs: decreased breath sounds Airway: Mallampati scale class II Neurological: alert and oriented Last oral intake: >/= 8 hours ASA classification: IV Emergent: yes Anesthetic plan: proceed Anesthesia type and monitoring: general GIVS and LMA and standard monitoring Results Review: All pre-operative results and documents have been reviewed as part of the pre- operative evaluation. Informed Consent: The patient's anesthetic plan and its attendant risks and benefits were discussed with the patient/family/POA. Questions were solicited and answers provided to the satisfaction of the patient/family/POA.
--- NOTE | 2025-05-08 07:31 | SUR.PREOP ---
patient brought from ED bedside report immediately to TRACK SUPERVISOR and OR and patient taken directly to OR
[2025-05-08] MEDS: LIDOCAINE 2% GEL UROJET 10 ML PKG MUCOUS MEM (07:45)
[2025-05-08 07:57] LABS: MRSA (PCR) NOT DETECTED (NOT DETECTE)
--- NOTE | 2025-05-08 08:11 | ADMGEN ---
This patient, Emani Simms, was admitted to ICU 4 at 0756. Patient/family oriented to hospital policies and general routines including ID bracelet, bed and alarms, visiting hours, pain management, procedures, bathroom and other care routines, personal items, smoking policy, room service/diet, and visiting hours. Information on how to activate the Rapid Response Team has been discussed. Patient/Family are encouraged to report perceived risks to care and to ask questions if they do not understand what they are told or what they should do.
[2025-05-08] MEDS: SODIUM CHLORIDE 0.9% IV 1,000 ML 125 ML IV CONT ×2 (08:48→16:17)
--- NOTE | 2025-05-08 08:50 | W.PM.PROC2 ---
Procedure Note - Detailed Date of Procedure 05/08/25 Pre-op Diagnosis Ureteral stone with sepsis Post-op Diagnosis Same Procedure Performed Cystoscopy, right retrograde pyelogram, right ureteral stent placed Surgeon Yaya Bishop MD Anesthesia General Indications She came to the ER with urosepsis secondary to obstructing ureteral stone. She presents for emergent stent understands the risk of bleeding, infection, inability to place the stent, damage to the retracted. Definitive stone procedure at a later date Findings Large right ureteropelvic junction stone visible on KUB Description of Procedure She was correctly identified. Informed consent obtained. From the operating room. She was given general anesthesia. She was placed in low lithotomy position. She was prepped and draped sterile fashion. Time-out performed. She was already on antibiotics as well as pressors. On cystoscopy she had significant purulent and bloody urine within her bladder. This was drained. Visualization was difficult due to the cloudiness of her urine. No other bladder abnormalities were noted. Right ureteral orifice was identified. A gentle retrograde pyelogram was 1st performed. Stone was clean clearly visible on supervisor dental laboratory. She had hydronephrosis proximal to the stone. There was no extravasation. I placed a guidewire to the kidney. I then noted a 4.8 variable length stent. Proximal coil was noted to be in the kidney. Distal coil the bladder. Sams catheter is placed. She was awakened transferred PACU in stable condition. Implants Ureteral stent Estimated Blood Loss 0 Complications No immediate complications Condition Stable Disposition ICU
--- NOTE | 2025-05-08 09:56 | WPDINTPN ---
Subjective Date/time seen: 05/08/25 09:56 Interval history: Septic shock, fall, right obstructing ureteral stone, hydronephrosis 05/08: status post cystoscopy, right retrograde pyelogram, right ureteral stent placed Objective Data Vital Signs Vital Signs: Vital Signs - 24 hr 05/07/25 23:17 05/08/25 00:15 05/08/25 00:43 Temperature 99.1 F Pulse Rate 107 H 109 H 109 H Respiratory Rate 23 H 23 H 16 Blood Pressure 110/50 L Pulse Oximetry 95 98 94 Oxygen Delivery Room Air Oxygen Flow Rate 05/08/25 00:45 05/08/25 00:47 05/08/25 01:00 Temperature Pulse Rate 110 H 110 H 109 H Respiratory Rate 32 H 21 H 31 H Blood Pressure 123/107 H Pulse Oximetry 96 95 95 Oxygen Delivery Oxygen Flow Rate 05/08/25 01:02 05/08/25 01:15 05/08/25 01:16 Temperature Pulse Rate 109 H 109 H 109 H Respiratory Rate 22 H 26 H 28 H Blood Pressure 80/48 L 76/44 L Pulse Oximetry 93 95 Oxygen Delivery Oxygen Flow Rate 05/08/25 01:24 05/08/25 01:30 05/08/25 01:45 Temperature Pulse Rate 108 H 108 H 109 H Respiratory Rate 24 H 27 H 29 H Blood Pressure 105/45 L Pulse Oximetry 98 93 97 Oxygen Delivery Oxygen Flow Rate 05/08/25 02:04 05/08/25 02:15 05/08/25 02:30 Temperature Pulse Rate 109 H 108 H 106 H Respiratory Rate 18 25 H 25 H Blood Pressure Pulse Oximetry 93 97 Oxygen Delivery Oxygen Flow Rate 05/08/25 02:45 05/08/25 02:50 05/08/25 03:04 Temperature Pulse Rate 107 H 105 H Respiratory Rate 27 H 25 H Blood Pressure Pulse Oximetry 95 95 Oxygen Delivery Nasal Cannula Oxygen Flow Rate 2 05/08/25 03:10 05/08/25 03:15 05/08/25 03:15 Temperature 98.4 F Pulse Rate 106 H 105 H Respiratory Rate 28 H 21 H Blood Pressure 61/46 L Pulse Oximetry 95 Oxygen Delivery Oxygen Flow Rate 05/08/25 03:16 05/08/25 03:23 05/08/25 03:30 Temperature Pulse Rate 105 H 105 H 104 H Respiratory Rate 27 H 24 H 24 H Blood Pressure 71/51 L 65/44 L Pulse Oximetry 95 96 96 Oxygen Delivery Oxygen Flow Rate 05/08/25 03:31 05/08/25 03:45 05/08/25 03:46 Temperature Pulse Rate 105 H 104 H 104 H Respiratory Rate 23 H 24 H 24 H Blood Pressure 67/45 L 65/40 L Pulse Oximetry 95 98 98 Oxygen Delivery Oxygen Flow Rate 05/08/25 04:00 05/08/25 04:01 05/08/25 04:07 Temperature Pulse Rate 104 H 104 H 103 H Respiratory Rate 20 19 19 Blood Pressure 56/26 L 64/46 L Pulse Oximetry 100 Oxygen Delivery Oxygen Flow Rate 05/08/25 04:08 05/08/25 04:33 05/08/25 04:43 Temperature Pulse Rate 103 H 103 H Respiratory Rate 18 14 Blood Pressure 93/45 L Pulse Oximetry 95 Oxygen Delivery Oxygen Flow Rate 05/08/25 04:45 05/08/25 05:00 05/08/25 05:01 Temperature Pulse Rate 103 H 103 H 103 H Respiratory Rate 22 H 20 19 Blood Pressure 82/43 L 70/48 L Pulse Oximetry 100 Oxygen Delivery Oxygen Flow Rate 05/08/25 05:16 05/08/25 05:30 05/08/25 05:31 Temperature Pulse Rate 102 H 102 H 102 H Respiratory Rate 20 17 27 H Blood Pressure 72/51 L Pulse Oximetry Oxygen Delivery Oxygen Flow Rate 05/08/25 05:37 05/08/25 06:24 05/08/25 06:40 Temperature Pulse Rate 103 H 100 Respiratory Rate 19 Blood Pressure 81/57 L 79/55 L 85/56 L Pulse Oximetry 96 Oxygen Delivery Oxygen Flow Rate 05/08/25 07:04 05/08/25 07:08 05/08/25 07:18 Temperature Pulse Rate 103 H 103 H Respiratory Rate 20 Blood Pressure 89/55 L 84/47 L 110/53 L Pulse Oximetry 96 Oxygen Delivery Oxygen Flow Rate 05/08/25 07:30 05/08/25 08:10 05/08/25 08:19 Temperature 101.6 F H Pulse Rate 104 H 103 H 104 H Respiratory Rate 19 18 Blood Pressure 110/53 L 102/50 L 91/44 L Pulse Oximetry 98 98 Oxygen Delivery Room Air Oxygen Flow Rate 05/08/25 08:26 05/08/25 08:37 05/08/25 09:00 Temperature Pulse Rate 102 H 102 H Respiratory Rate Blood Pressure 104/82 108/65 Pulse Oximetry 96 Oxygen Delivery Room Air Oxygen Flow Rate 05/08/25 09:22 05/08/25 09:25 05/08/25 09:33 Temperature 99 F Pulse Rate 105 H 104 H 103 H Respiratory Rate 17 17 Blood Pressure 95/35 L 95/35 L Pulse Oximetry 96 95 Oxygen Delivery Nasal Cannula Oxygen Flow Rate 3 05/08/25 09:50 Temperature Pulse Rate 87 Respiratory Rate Blood Pressure 82/45 L Pulse Oximetry Oxygen Delivery Oxygen Flow Rate Intake/Output Intake/Output: Intake & Output 05/05/25 05/06/25 05/07/25 05/08/25 23:59 23:59 23:59 23:59 Intake Total 5000 Balance 5000 Meds/Results Medications: Active Medications Generic Name Dose Route Start Last Admin Trade Name Freq PRN Reason Stop Dose Admin Norepinephrine Bitartrate 8 mg in 250 mls @ 26.25 mls/hr 05/08/25 06:08 05/08/25 09:50 Levophed 8 Mg/D5w 250 Ml IV CONT 05/08/25 15:39 16 mcg/min .Q9H32M STA 30 mls/hr Titration Protocol 14 MCG/MIN Ceftriaxone Sodium 2 gm in 100 mls @ 200 mls/hr 05/09/25 05:00 Rocephin 2 Gm/Ns 100 Ml IVPB Q24H YUN Sodium Chloride 1,000 mls @ 125 mls/hr 05/08/25 06:15 05/08/25 08:48 Normal Saline Iv IV CONT 125 mls/hr .Q8H YUN Administration Morphine Sulfate 2 mg 05/08/25 06:13 Morphine Sulfate (*Crx) 2 Mg/Ml Inj IV PUSH Q2H PRN Pain Rated 7-10 Ondansetron HCl 4 mg 05/08/25 06:13 Ondansetron Inj 4 Mg/2 Ml Vial IV PUSH Q4H PRN Nausea Ondansetron HCl 4 mg 05/08/25 07:27 Ondansetron Inj 4 Mg/2 Ml Vial IV PUSH ONCE PRN Nausea Radiology Results: ITS Impressions Hip/Pelvis X-Ray 05/08/25 05:18 Impression: No acute abnormality. Stable severe degenerative change of the right hip joint with chronic remodeling of the right femoral head which is diminutive in overall appearance. Moderate to advanced degenerative change of the left hip joint, similar to prior exam. Pelvis CT 05/08/25 05:21 Impression: No acute fracture or dislocation seen. Severe degenerative changes of both hips, as detailed above, right worse than left. There is chronic remodeling and deformity of the right femoral head. 15 mm right renal pelvis stone with moderate to severe right hydronephrosis and findings compatible with ATN of the right kidney with patchy retained contrast enhancement of the right renal parenchyma. Shoulder X-Ray 05/08/25 05:24 Impression: Severe glenohumeral joint degenerative change. No acute fracture or dislocation seen. Abdomen/Pelvis CT 05/08/25 05:27 Impression: 16 mm right renal pelvis stone with moderate to severe right hydronephrosis. Patchy retained contrast enhancement of the right renal parenchyma with shotty right perinephric and aortocaval lymph nodes. Findings are consistent with ATN and possible superimposed pyelonephritis. Correlate clinically and with urinalysis. ADDENDUM: 05/08/25 0533 3.1 cm peripherally calcified left upper quadrant lesion is presumably arising from the left adrenal gland, indeterminate, though likely benign given the dense eggshell calcification. Abdomen X-Ray 05/08/25 05:31 Impression: Probable 16 mm stone projecting just the right of the L3-L4 disc space, which correlates with findings on prior CT. 3.1 cm peripherally calcified mass in left upper lobe which corresponds prior CT scan, possibly adrenal lesion. Chest X-Ray 05/08/25 06:53 Impression: Right IJ line in place. Clear lungs. Retrograde Pyelogram 05/08/25 08:03 IMPRESSION: 1. Right internal ureteral stent placement. Please refer to real-time procedural findings for details. Labs Labs: Laboratory Results - last 24 hr 05/08/25 05/08/25 05/08/25 02:46 03:19 03:34 WBC 20.0 H RBC 3.55 L Hgb 11.0 L Hct 34.8 L MCV 98.0 MCH 31.0 MCHC 31.6 L RDW 14.5 Plt Count 166 MPV 10.0 Immature Gran % (Auto) 0.7 H Neut % (Auto) 94.5 H Lymph % (Auto) 2.0 L [place] % (Auto) 1.5 L Eos % (Auto) 1.1 Baso % (Auto) 0.2 Lymph # (Auto) 0.40 L [place] # (Auto) 0.3 Eos # (Auto) 0.2 Baso # (Auto) 0.0 Abs Immat Gran (auto) 0.13 H Absolute Neuts (auto) 18.9 H Absolute Nucleated RBC 0.000 Band Neutrophils % 0 Nucleated RBC % 0.0 Platelet Estimate Adequate Large Platelets Present Hypochromasia 1+ Anisocytosis 1+ Schistocytes None seen Sodium 138 Potassium 4.3 Chloride 104 Carbon Dioxide 23 Anion Gap 11 BUN 45 H D Creatinine 2.76 H Estim Creat Clear Calc 16 Estimated GFR 17 L Glucose 120 H Lactic Acid 2.4 H Calcium 9.7 Total Bilirubin 1.1 AST 33 ALT 15 Alkaline Phosphatase 88 Total Creatine Kinase 154 H Total Protein 6.5 Albumin 3.8 Urine Color [place] Urine Appearance Cloudy H Urine pH 5.5 Ur Specific [place] 1.025 Urine Protein 3+ H Urine Glucose (UA) Negative Urine Ketones Trace H Ur Blood (Man) 3+ H Urine Nitrate Positive H Urine Bilirubin 1+ H Urine Urobilinogen 1.0 Add Ur Microanalysis Reviewed Leukocyte Esterase Rfl 1+ H Urine RBC >100 H Urine WBC 21-50 H Ur Squamous Epith Cells Occasional Urine Bacteria 4+ H Urine Casts 3-5 Urine Yeast (Budding) Present H Nasal MRSA (PCR) 05/08/25 06:29 WBC RBC Hgb Hct MCV MCH MCHC RDW Plt Count MPV Immature Gran % (Auto) Neut % (Auto) Lymph % (Auto) [place] % (Auto) Eos % (Auto) Baso % (Auto) Lymph # (Auto) [place] # (Auto) Eos # (Auto) Baso # (Auto) Abs Immat Gran (auto) Absolute Neuts (auto) Absolute Nucleated RBC Band Neutrophils % Nucleated RBC % Platelet Estimate Large Platelets Hypochromasia Anisocytosis Schistocytes Sodium Potassium Chloride Carbon Dioxide Anion Gap BUN Creatinine Estim Creat Clear Calc Estimated GFR Glucose Lactic Acid 1.3 Calcium Total Bilirubin AST ALT Alkaline Phosphatase Total Creatine Kinase Total Protein Albumin Urine Color Urine Appearance Urine pH Ur Specific [place] Urine Protein Urine Glucose (UA) Urine Ketones Ur Blood (Man) Urine Nitrate Urine Bilirubin Urine Urobilinogen Add Ur Microanalysis Leukocyte Esterase Rfl Urine RBC Urine WBC Ur Squamous Epith Cells Urine Bacteria Urine Casts Urine Yeast (Budding) Nasal MRSA (PCR) Not detected
[2025-05-08] MEDS: HYDROCORTISONE SODIUM SUCCINATE 100 MG/2 ML VIAL IV PUSH ×3 (10:37→22:11)
[2025-05-08] MEDS: VASOPRESSIN INJ 100 UNITS in DEXTROSE 5% 95 ML IV CONT (10:50)
--- NOTE | 2025-05-08 11:09 | P.CONIN_ITS ---
Assessment and Plan Assessment and plan (1) Septic shock: Code(s): A41.9 - Sepsis, unspecified organism; R65.21 - Severe sepsis with septic shock Status: Acute Assessment and Plan: Patient presented with a fall, found to be hypotensive with right ureteral stone causing moderate to severe hydronephrosis -received 4-5 L of IV fluids in all this admission despite which she remained hypotensive, right IJ central line was placed in the ER and started on Levophed -05/08: patient status post cystoscopy, right retrograde pyelogram, right ureteral stent placement -patient remains on Levophed, will add vasopressin, Maintain MAP > 65 mmHg due for adequate end organ perfusion -patient with acute kidney injury, adequately fluid-resuscitated -continue to monitor urine output and renal function along with electrolytes -lactic acid was initially elevated but repeat lactic acid is 1.3 -05/08: Blood cultures have been obtained and pending -05/08: Urine cultures obtained and pending -will add stress dose steroids -Continue ceftriaxone (05/08) (2) Pyelonephritis: Code(s): N12 - Tubulo-interstitial nephritis, not specified as acute or chronic Status: Acute Assessment and Plan: Pyelonephritis likely related to right ureteral stone and hydronephrosis, status post right ureteral stent as above -continue antibiotics (3) Obstruction of right ureteropelvic junction (UPJ) due to stone: Code(s): N20.1 - Calculus of ureter Status: Acute Assessment and Plan: As above (4) Acute kidney injury: Code(s): N17.9 - Acute kidney failure, unspecified Status: Acute Assessment and Plan: Acute kidney injury likely related to septic shock, hypotension, hypovolemia, ATN, pyelonephritis -adequately fluid-resuscitated -continue vasopressor -lactic acid 2.4 on admission, repeat lactic acid 1.3 -monitor urine output, renal function and electrolytes (5) Hypothyroidism, unspecified: Qualifiers: Hypothyroidism type: unspecified Qualified Code(s): E03.9 - Hypothyroidism, unspecified Code(s): E03.9 - Hypothyroidism, unspecified Status: Acute Assessment and Plan: Continue Levothyroid (6) Atrial fibrillation: Code(s): I48.91 - Unspecified atrial fibrillation Status: Acute Assessment and Plan: Remains in AFib, rate controlled, continue Eliquis which is a home medication -will hold metoprolol since patient is on pressors Plan DVT prophylaxis: Eliquis Stress ulcer prophylaxis: Not indicated Nutrition: Start with clear liquids and advanced to heart healthy diet Code Status: Full code Critical Care Time Spent: 52 minutes Due to a high probability of clinically significant, life threatening deterioration, the patient required my highest level of preparedness to intervene emergently and I personally spent this critical care time directly and personally managing the patient. This critical care time included obtaining a history; examining the patient; pulse oximetry; ordering and review of studies; arranging urgent treatment with development of a management plan; evaluation of patient's response to treatment; frequent reassessment; and discussions with other providers. It was exclusive of separately billable procedures and treating other patients and teaching time. Please see Assessment and Plan section and the rest of the note for further information on patient assessment and treatment This dictation may have been done utilizing a voice recognition system. Attempts have been made to correct errors. However, there may be uncorrected grammatical, spelling, and recognitions errors present. Immigration Judge Consult Note Consult date: 05/08/25 Reason for consult: Septic shock, fall, right obstructing ureteral stone, hydronephrosis 05/08: status post cystoscopy, right retrograde pyelogram, right ureteral stent placed HPI: Emani Simms is a 79 year old female past medical history of chronic kidney disease stage 3, essential hypertension, gout, hypothyroidism, osteoarthritis of right hip, atrial fibrillation on Eliquis, who fell in the bathroom on 05/07/2025 around 2:00 p.m according the patient, she pressed her Life Alert and knee came and helped her up and told that if she has more pain go to the ER. Later in the evening she did have more right hip pain and right shoulder pain for which she came to the ER at [facility]. In the ER patient was noted be hypotensive, received 30 mL/kg IV fluid bolus. WBC count 20.0, hemoglobin 11.0, platelets 166. Sodium 138, potassium 4.3, CO2 23, BUN 45, creatinine 2.76, lactic acid 2.4, repeat lactic 1.3 after IV fluids, LFTs are within normal limits. TSH was 2.180. UA was reflective of UTI 05/08: Pelvic CT did not show any acute fracture dislocation. Severe degenerative changes of both hips. 15 mm right pelvis stone with moderate to severe right hydronephrosis 05/08: Right shoulder x-ray did not show any acute fracture or dislocation, severe glenohumeral joint degenerative changes 05/08: CT scan of the abdomen and pelvis showed 16 mm right renal pelvis stone with moderate to severe right hydronephrosis. 3.1 cm peripherally calcified left upper quadrant lesion is presumably arising from the left adrenal gland, indeterminate, though likely benign a dense eggshell calcification. Patient was taken to the OR which she had cystoscopy, right retrograde pyelogram and right ureteral stent placement by Urology. Patient and remained hypotensive in the ER, right IJ line was inserted and patient started on Levophed. Postprocedure patient transferred to the ICU for further management s Patient seen and examined the ICU upon arrival, patient is awake, alert, oriented x3, remains on Levophed. Also on maintenance IV fluids. Currently denies any chest pain, abdominal pain, nausea, vomiting, right shoulder, right hip pain. Patient was febrile with a T-max of 101.6? this morning. Review of Systems 2 Review of Systems: All systems reviewed & are unremarkable except as noted in HPI and below PMFSH Past Medical History Medical History Sepsis Acute kidney injury Obstruction of right ureteropelvic junction (UPJ) due to stone Chronic renal insufficiency, stage III (moderate) Spinal stenosis of lumbar region Colon polyp Essential (primary) hypertension H/O: gout Hypothyroidism, unspecified Lumbar radiculopathy Lymphedema Pre-diabetes Primary osteoarthritis of right hip Surgical History Surgical History H/O colonoscopy with polypectomy (~06/2018) Family History Family History Mother Carcinoma of colon Mother Diabetes mellitus Mother Family history of arthritis Father Malignant neoplasm of prostate Sibling Hypertension Mother Hypertension Other Cerebrovascular accident Family history of coronary artery disease Family history of gout Family history of heart disease in male family member before age 55 Family history of malignant neoplasm Family history of tuberculosis Social History Social History Smoking status: Never smoker Second hand tobacco smoke exposure: No Alcohol intake: current Drinks per week: 1 Substance use: never Substance use type: does not use Do You Feel Safe in your Home?: Yes Lack of Transportation: No Lack of Food: Never True Current Housing: I Have Housing Concerned About Future Housing: No Difficulty Paying Gas/Electric Bills: No Difficulty Paying for Meds: No Currently Unemployed: No Education: Don't Know Difficulty w/ Childcare or Family Care: No Occupation/Education: retired Gender identity (if verbalized by the patient): Female Sexual Orientation (if Verbalized by the Patient): Straight or Heterosexual Spiritual care concerns: No Agree to blood products: Yes Meds Home Medications and Allergies Home Medications ?Medication ?Instructions ?Recorded ?Confirmed ?Type multivit with minerals-iron 18 1 tablet PO DAILY 09/02/20 05/08/25 History mg-folic ac 400 mcg-vit K 25 mcg tablet (Adults Multivitamin) cholecalciferol (vitamin D3) 25 25 mcg PO DAILY #30 caps 06/14/22 05/08/25 Rx mcg (1,000 unit) capsule allopurinol 100 mg tablet 100 mg PO DAILY #90 tabs 01/06/25 05/08/25 Rx losartan 50 mg tablet 50 mg PO DAILY #90 tabs 01/29/25 05/08/25 Rx gabapentin 300 mg capsule 300 mg PO .COMPLEX #120 caps 02/08/25 05/08/25 Rx levothyroxine 100 mcg tablet 100 mcg PO DAILY #90 tabs 03/20/25 05/08/25 Rx apixaban 5 mg tablet (Eliquis) 5 mg PO BID #60 tabs 04/10/25 05/08/25 Rx metoprolol succinate 25 mg 25 mg PO DAILY #30 tabs 04/12/25 05/08/25 Rx tablet,extended release 24 hr Allergies Allergy/AdvReac Type Severity Reaction Status Date / Time No Known Allergies Allergy Unknown Verified 05/08/25 06:00 Vital Signs Vital Signs - 24 hr 05/07/25 23:17 05/08/25 00:15 05/08/25 00:43 Temperature 99.1 F Pulse Rate 107 H 109 H 109 H Respiratory Rate 23 H 23 H 16 Blood Pressure 110/50 L Pulse Oximetry 95 98 94 Oxygen Delivery Room Air Oxygen Flow Rate 05/08/25 00:45 05/08/25 00:47 05/08/25 01:00 Temperature Pulse Rate 110 H 110 H 109 H Respiratory Rate 32 H 21 H 31 H Blood Pressure 123/107 H Pulse Oximetry 96 95 95 Oxygen Delivery Oxygen Flow Rate 05/08/25 01:02 05/08/25 01:15 05/08/25 01:16 Temperature Pulse Rate 109 H 109 H 109 H Respiratory Rate 22 H 26 H 28 H Blood Pressure 80/48 L 76/44 L Pulse Oximetry 93 95 Oxygen Delivery Oxygen Flow Rate 05/08/25 01:24 05/08/25 01:30 05/08/25 01:45 Temperature Pulse Rate 108 H 108 H 109 H Respiratory Rate 24 H 27 H 29 H Blood Pressure 105/45 L Pulse Oximetry 98 93 97 Oxygen Delivery Oxygen Flow Rate 05/08/25 02:04 05/08/25 02:15 05/08/25 02:30 Temperature Pulse Rate 109 H 108 H 106 H Respiratory Rate 18 25 H 25 H Blood Pressure Pulse Oximetry 93 97 Oxygen Delivery Oxygen Flow Rate 05/08/25 02:45 05/08/25 02:50 05/08/25 03:04 Temperature Pulse Rate 107 H 105 H Respiratory Rate 27 H 25 H Blood Pressure Pulse Oximetry 95 95 Oxygen Delivery Nasal Cannula Oxygen Flow Rate 2 05/08/25 03:10 05/08/25 03:15 05/08/25 03:15 Temperature 98.4 F Pulse Rate 106 H 105 H Respiratory Rate 28 H 21 H Blood Pressure 61/46 L Pulse Oximetry 95 Oxygen Delivery Oxygen Flow Rate 05/08/25 03:16 05/08/25 03:23 05/08/25 03:30 Temperature Pulse Rate 105 H 105 H 104 H Respiratory Rate 27 H 24 H 24 H Blood Pressure 71/51 L 65/44 L Pulse Oximetry 95 96 96 Oxygen Delivery Oxygen Flow Rate 05/08/25 03:31 05/08/25 03:45 05/08/25 03:46 Temperature Pulse Rate 105 H 104 H 104 H Respiratory Rate 23 H 24 H 24 H Blood Pressure 67/45 L 65/40 L Pulse Oximetry 95 98 98 Oxygen Delivery Oxygen Flow Rate 05/08/25 04:00 05/08/25 04:01 05/08/25 04:07 Temperature Pulse Rate 104 H 104 H 103 H Respiratory Rate 20 19 19 Blood Pressure 56/26 L 64/46 L Pulse Oximetry 100 Oxygen Delivery Oxygen Flow Rate 05/08/25 04:08 05/08/25 04:33 05/08/25 04:43 Temperature Pulse Rate 103 H 103 H Respiratory Rate 18 14 Blood Pressure 93/45 L Pulse Oximetry 95 Oxygen Delivery Oxygen Flow Rate 05/08/25 04:45 05/08/25 05:00 05/08/25 05:01 Temperature Pulse Rate 103 H 103 H 103 H Respiratory Rate 22 H 20 19 Blood Pressure 82/43 L 70/48 L Pulse Oximetry 100 Oxygen Delivery Oxygen Flow Rate 05/08/25 05:16 05/08/25 05:30 05/08/25 05:31 Temperature Pulse Rate 102 H 102 H 102 H Respiratory Rate 20 17 27 H Blood Pressure 72/51 L Pulse Oximetry Oxygen Delivery Oxygen Flow Rate 05/08/25 05:37 05/08/25 06:24 05/08/25 06:40 Temperature Pulse Rate 103 H 100 Respiratory Rate 19 Blood Pressure 81/57 L 79/55 L 85/56 L Pulse Oximetry 96 Oxygen Delivery Oxygen Flow Rate 05/08/25 07:04 05/08/25 07:08 05/08/25 07:18 Temperature Pulse Rate 103 H 103 H Respiratory Rate 20 Blood Pressure 89/55 L 84/47 L 110/53 L Pulse Oximetry 96 Oxygen Delivery Oxygen Flow Rate 05/08/25 07:30 05/08/25 08:10 05/08/25 08:19 Temperature 101.6 F H Pulse Rate 104 H 103 H 104 H Respiratory Rate 19 18 Blood Pressure 110/53 L 102/50 L 91/44 L Pulse Oximetry 98 98 Oxygen Delivery Room Air Oxygen Flow Rate 05/08/25 08:26 05/08/25 08:37 05/08/25 09:00 Temperature Pulse Rate 102 H 102 H Respiratory Rate Blood Pressure 104/82 108/65 Pulse Oximetry 96 Oxygen Delivery Room Air Oxygen Flow Rate 05/08/25 09:22 05/08/25 09:25 05/08/25 09:33 Temperature 99 F Pulse Rate 105 H 104 H 103 H Respiratory Rate 17 17 Blood Pressure 95/35 L 95/35 L Pulse Oximetry 96 95 Oxygen Delivery Nasal Cannula Oxygen Flow Rate 3 05/08/25 09:50 05/08/25 10:00 05/08/25 10:00 Temperature Pulse Rate 87 89 93 Respiratory Rate Blood Pressure 82/45 L 87/37 L Pulse Oximetry Oxygen Delivery Oxygen Flow Rate 05/08/25 10:00 05/08/25 10:14 05/08/25 10:18 Temperature Pulse Rate 91 91 89 Respiratory Rate 19 20 Blood Pressure 87/37 L 86/32 L Pulse Oximetry 95 97 Oxygen Delivery Nasal Cannula Oxygen Flow Rate 1 05/08/25 10:25 05/08/25 10:34 05/08/25 10:50 Temperature Pulse Rate 103 H 83 91 Respiratory Rate Blood Pressure 93/46 L 106/56 L 98/50 L Pulse Oximetry Oxygen Delivery Oxygen Flow Rate Exam 2 Narrative: General: Pleasant female, in no acute distress at this time HEENT:? Pupils equal and reactive, sclera is clear, moist oral mucosa Neck:? Supple Respiratory:? Clear to auscultation bilaterally, no wheezing, adequate air entry will Cardiac:? Irregularly irregular, rate controlled Abdomen:? Soft, nontender, nondistended, normoactive bowel sound Extremities:? No edema, palpable pedal pulses Neuro:? Patient is awake, alert, oriented x3, nonfocal, answers to questions appropriately and follows simple commands in all extremities Skin:? No lesions noted Psych:? Normal mentation and affect Results Labs 05/08/25 02:46 05/08/25 02:46 Labs: Short CBC 05/08/25 Range/Units 02:46 WBC 20.0 H (4.5-10.0) K/mm3 Hgb 11.0 L (12.0-15.0) g/dL Hct 34.8 L (37.0-47.0) % Plt Count 166 (150-375) k/mm3 BMP 05/08/25 02:46 Sodium 138 Potassium 4.3 Chloride 104 Carbon Dioxide 23 BUN 45 H D Creatinine 2.76 H Glucose 120 H Calcium 9.7 Cardiac Enzymes 05/08/25 Range/Units 02:46 Total Creatine Kinase 154 H (30-135) U/L Liver Function 05/08/25 Range/Units 02:46 Total Bilirubin 1.1 (0.2-1.3) mg/dL AST 33 (14-36) U/L ALT 15 (6-35) U/L Alkaline Phosphatase 88 (38-126) U/L Albumin 3.8 (3.5-5.1) g/dL Urine 05/08/25 Range/Units 03:19 Urine Color [place] (Yellow) Urine Appearance Cloudy H (Clear) Urine pH 5.5 (5.0-9.0) Ur Specific [place] 1.025 (1.001-1.035) Urine Protein 3+ H (Negative) mg/dL Urine Glucose (UA) Negative (Negative) mg/dL Quality VTE Prophylaxis VTE prophylaxis: pharmacologic ordered Hospitalist MIPS Advance Care Plan I have confirmed that the patient's Advanced Care Plan is present, code status is documented, or surrogate decision maker is listed in patient medical record.: Yes Medication Reconciliation I have utilized all available resources to obtain, update and review the patients current medications (includes all prescriptions, OTC, herbals, cannabis, and nutritional supplements).: Yes
[2025-05-08] MEDS: ACETAMINOPHEN 325 MG TABLET 650 MG PO (11:34)
[2025-05-08] MEDS: NOREPINEPHRINE 8 MG/D5W 250 ML 8 MG/250 ML BAG 45 MG IV CONT (12:51)
--- NOTE | 2025-05-08 14:13 | PM.IMHP ---
H&P: HPI History of Present Illness Date/Time: 05/08/25 14:13 Chief Complaint: Fall Narrative: Emani Simms is a 79 year old female past medical history of chronic kidney disease stage 3, essential hypertension, gout, hypothyroidism, osteoarthritis of right hip, atrial fibrillation on Eliquis, who fell in the bathroom on 05/07/2025 around 2:00 p.m according the patient, she pressed her Life Alert and knee came and helped her up and told that if she has more pain go to the ER. Later in the evening she did have more right hip pain and right shoulder pain for which she came to the ER at [facility]. Pertinent ED labs: WBC count 20.0, hemoglobin 11.0, platelets 166. Sodium 138, potassium 4.3, CO2 23, BUN 45, creatinine 2.76, lactic acid 2.4, repeat lactic 1.3 after IV fluids, LFTs are within normal limits. TSH was 2.180. UA was reflective of UTI Pelvic CT did not show any acute fracture dislocation. Severe degenerative changes of both hips. 15 mm right pelvis stone with moderate to severe right hydronephrosis Right shoulder x-ray did not show any acute fracture or dislocation, severe glenohumeral joint degenerative changes CT scan of the abdomen and pelvis showed 16 mm right renal pelvis stone with moderate to severe right hydronephrosis. 3.1 cm peripherally calcified left upper quadrant lesion is presumably arising from the left adrenal gland, indeterminate, though likely benign a dense eggshell calcification. Patient was taken to the OR which she had cystoscopy, right retrograde pyelogram and right ureteral stent placement by Urology. Patient and remained hypotensive in the ER, right IJ line was inserted and patient started on Levophed. Postprocedure patient transferred to the ICU for further management. In the ED patient received IV fluids according to the sepsis protocol Review of Systems Review of Systems: All systems reviewed & are unremarkable except as noted in HPI and below PMFSH Past Medical History Medical History Sepsis Acute kidney injury Obstruction of right ureteropelvic junction (UPJ) due to stone Chronic renal insufficiency, stage III (moderate) Spinal stenosis of lumbar region Colon polyp Essential (primary) hypertension H/O: gout Hypothyroidism, unspecified Lumbar radiculopathy Lymphedema Pre-diabetes Primary osteoarthritis of right hip Surgical History Surgical History H/O colonoscopy with polypectomy (~06/2018) Family History Family History Mother Carcinoma of colon Mother Diabetes mellitus Mother Family history of arthritis Father Malignant neoplasm of prostate Sibling Hypertension Mother Hypertension Other Cerebrovascular accident Family history of coronary artery disease Family history of gout Family history of heart disease in male family member before age 55 Family history of malignant neoplasm Family history of tuberculosis Social History Social History Smoking status: Never smoker Second hand tobacco smoke exposure: No Alcohol intake: current Drinks per week: 1 Substance use: never Substance use type: does not use Do You Feel Safe in your Home?: Yes Lack of Transportation: No Lack of Food: Never True Current Housing: I Have Housing Concerned About Future Housing: No Difficulty Paying Gas/Electric Bills: No Difficulty Paying for Meds: No Currently Unemployed: No Education: Don't Know Difficulty w/ Childcare or Family Care: No Occupation/Education: retired Gender identity (if verbalized by the patient): Female Sexual Orientation (if Verbalized by the Patient): Straight or Heterosexual Spiritual care concerns: No Agree to blood products: Yes Meds Home Medications and Allergies Home Medications ?Medication ?Instructions ?Recorded ?Confirmed ?Type multivit with minerals-iron 18 1 tablet PO DAILY 09/02/20 05/08/25 History mg-folic ac 400 mcg-vit K 25 mcg tablet (Adults Multivitamin) cholecalciferol (vitamin D3) 25 25 mcg PO DAILY #30 caps 06/14/22 05/08/25 Rx mcg (1,000 unit) capsule allopurinol 100 mg tablet 100 mg PO DAILY #90 tabs 01/06/25 05/08/25 Rx losartan 50 mg tablet 50 mg PO DAILY #90 tabs 01/29/25 05/08/25 Rx gabapentin 300 mg capsule 300 mg PO .COMPLEX #120 caps 02/08/25 05/08/25 Rx levothyroxine 100 mcg tablet 100 mcg PO DAILY #90 tabs 03/20/25 05/08/25 Rx apixaban 5 mg tablet (Eliquis) 5 mg PO BID #60 tabs 04/10/25 05/08/25 Rx metoprolol succinate 25 mg 25 mg PO DAILY #30 tabs 04/12/25 05/08/25 Rx tablet,extended release 24 hr Allergies Allergy/AdvReac Type Severity Reaction Status Date / Time No Known Allergies Allergy Unknown Verified 05/08/25 06:00 Vital Signs Vital Signs - 24 hr 05/07/25 23:17 05/08/25 00:15 05/08/25 00:43 Temperature 99.1 F Pulse Rate 107 H 109 H 109 H Respiratory Rate 23 H 23 H 16 Blood Pressure 110/50 L Pulse Oximetry 95 98 94 Oxygen Delivery Room Air Oxygen Flow Rate 05/08/25 00:45 05/08/25 00:47 05/08/25 01:00 Temperature Pulse Rate 110 H 110 H 109 H Respiratory Rate 32 H 21 H 31 H Blood Pressure 123/107 H Pulse Oximetry 96 95 95 Oxygen Delivery Oxygen Flow Rate 05/08/25 01:02 05/08/25 01:15 05/08/25 01:16 Temperature Pulse Rate 109 H 109 H 109 H Respiratory Rate 22 H 26 H 28 H Blood Pressure 80/48 L 76/44 L Pulse Oximetry 93 95 Oxygen Delivery Oxygen Flow Rate 05/08/25 01:24 05/08/25 01:30 05/08/25 01:45 Temperature Pulse Rate 108 H 108 H 109 H Respiratory Rate 24 H 27 H 29 H Blood Pressure 105/45 L Pulse Oximetry 98 93 97 Oxygen Delivery Oxygen Flow Rate 05/08/25 02:04 05/08/25 02:15 05/08/25 02:30 Temperature Pulse Rate 109 H 108 H 106 H Respiratory Rate 18 25 H 25 H Blood Pressure Pulse Oximetry 93 97 Oxygen Delivery Oxygen Flow Rate 05/08/25 02:45 05/08/25 02:50 05/08/25 03:04 Temperature Pulse Rate 107 H 105 H Respiratory Rate 27 H 25 H Blood Pressure Pulse Oximetry 95 95 Oxygen Delivery Nasal Cannula Oxygen Flow Rate 2 05/08/25 03:10 05/08/25 03:15 05/08/25 03:15 Temperature 98.4 F Pulse Rate 106 H 105 H Respiratory Rate 28 H 21 H Blood Pressure 61/46 L Pulse Oximetry 95 Oxygen Delivery Oxygen Flow Rate 05/08/25 03:16 05/08/25 03:23 05/08/25 03:30 Temperature Pulse Rate 105 H 105 H 104 H Respiratory Rate 27 H 24 H 24 H Blood Pressure 71/51 L 65/44 L Pulse Oximetry 95 96 96 Oxygen Delivery Oxygen Flow Rate 05/08/25 03:31 05/08/25 03:45 05/08/25 03:46 Temperature Pulse Rate 105 H 104 H 104 H Respiratory Rate 23 H 24 H 24 H Blood Pressure 67/45 L 65/40 L Pulse Oximetry 95 98 98 Oxygen Delivery Oxygen Flow Rate 05/08/25 04:00 05/08/25 04:01 05/08/25 04:07 Temperature Pulse Rate 104 H 104 H 103 H Respiratory Rate 20 19 19 Blood Pressure 56/26 L 64/46 L Pulse Oximetry 100 Oxygen Delivery Oxygen Flow Rate 05/08/25 04:08 05/08/25 04:33 05/08/25 04:43 Temperature Pulse Rate 103 H 103 H Respiratory Rate 18 14 Blood Pressure 93/45 L Pulse Oximetry 95 Oxygen Delivery Oxygen Flow Rate 05/08/25 04:45 05/08/25 05:00 05/08/25 05:01 Temperature Pulse Rate 103 H 103 H 103 H Respiratory Rate 22 H 20 19 Blood Pressure 82/43 L 70/48 L Pulse Oximetry 100 Oxygen Delivery Oxygen Flow Rate 05/08/25 05:16 05/08/25 05:30 05/08/25 05:31 Temperature Pulse Rate 102 H 102 H 102 H Respiratory Rate 20 17 27 H Blood Pressure 72/51 L Pulse Oximetry Oxygen Delivery Oxygen Flow Rate 05/08/25 05:37 05/08/25 06:24 05/08/25 06:40 Temperature Pulse Rate 103 H 100 Respiratory Rate 19 Blood Pressure 81/57 L 79/55 L 85/56 L Pulse Oximetry 96 Oxygen Delivery Oxygen Flow Rate 05/08/25 07:04 05/08/25 07:08 05/08/25 07:18 Temperature Pulse Rate 103 H 103 H Respiratory Rate 20 Blood Pressure 89/55 L 84/47 L 110/53 L Pulse Oximetry 96 Oxygen Delivery Oxygen Flow Rate 05/08/25 07:30 05/08/25 08:10 05/08/25 08:19 Temperature 101.6 F H Pulse Rate 104 H 103 H 104 H Respiratory Rate 19 18 Blood Pressure 110/53 L 102/50 L 91/44 L Pulse Oximetry 98 98 Oxygen Delivery Room Air Oxygen Flow Rate 05/08/25 08:26 05/08/25 08:37 05/08/25 09:00 Temperature Pulse Rate 102 H 102 H Respiratory Rate Blood Pressure 104/82 108/65 Pulse Oximetry 96 Oxygen Delivery Room Air Oxygen Flow Rate 05/08/25 09:22 05/08/25 09:25 05/08/25 09:33 Temperature 99 F Pulse Rate 105 H 104 H 103 H Respiratory Rate 17 17 Blood Pressure 95/35 L 95/35 L Pulse Oximetry 96 95 Oxygen Delivery Nasal Cannula Oxygen Flow Rate 3 05/08/25 09:50 05/08/25 10:00 05/08/25 10:00 Temperature Pulse Rate 87 89 93 Respiratory Rate Blood Pressure 82/45 L 87/37 L Pulse Oximetry Oxygen Delivery Oxygen Flow Rate 05/08/25 10:00 05/08/25 10:14 05/08/25 10:18 Temperature Pulse Rate 91 91 89 Respiratory Rate 19 20 Blood Pressure 87/37 L 86/32 L Pulse Oximetry 95 97 Oxygen Delivery Nasal Cannula Oxygen Flow Rate 1 05/08/25 10:25 05/08/25 10:34 05/08/25 10:50 Temperature Pulse Rate 103 H 83 91 Respiratory Rate Blood Pressure 93/46 L 106/56 L 98/50 L Pulse Oximetry Oxygen Delivery Oxygen Flow Rate 05/08/25 11:21 05/08/25 11:34 05/08/25 12:00 Temperature 101.3 F H Pulse Rate 79 88 Respiratory Rate 20 Blood Pressure 122/81 Pulse Oximetry 97 Oxygen Delivery Nasal Cannula Oxygen Flow Rate 1 05/08/25 12:00 05/08/25 12:00 05/08/25 12:00 Temperature 101.3 F H Pulse Rate 82 89 85 Respiratory Rate 20 Blood Pressure 122/81 122/81 Pulse Oximetry 92 Oxygen Delivery Oxygen Flow Rate 05/08/25 12:09 05/08/25 12:09 05/08/25 12:34 Temperature 101 F H Pulse Rate 102 H 104 H Respiratory Rate Blood Pressure 122/81 122/81 Pulse Oximetry Oxygen Delivery Oxygen Flow Rate 05/08/25 12:36 05/08/25 12:47 05/08/25 12:50 Temperature Pulse Rate 95 88 84 Respiratory Rate Blood Pressure 129/109 H 111/51 L 111/51 L Pulse Oximetry Oxygen Delivery Oxygen Flow Rate 05/08/25 12:51 05/08/25 14:00 05/08/25 14:00 Temperature Pulse Rate 81 77 77 Respiratory Rate Blood Pressure 111/51 L 99/46 L Pulse Oximetry Oxygen Delivery Oxygen Flow Rate 05/08/25 14:00 05/08/25 14:00 Temperature 100.5 F H Pulse Rate 77 78 Respiratory Rate 19 Blood Pressure 99/46 L 99/46 L Pulse Oximetry 95 Oxygen Delivery Oxygen Flow Rate Exam Narrative: General: Pleasant female, in no acute distress at this time HEENT:? Pupils equal and reactive, sclera is clear, moist oral mucosa Neck:? Supple Respiratory:? Clear to auscultation bilaterally, no wheezing, adequate air entry will Cardiac:? Irregularly irregular, rate controlled Abdomen:? Soft, nontender, nondistended, normoactive bowel sound Extremities:? No edema, palpable pedal pulses Neuro:? Patient is awake, alert, oriented x3, nonfocal, answers to questions appropriately and follows simple commands in all extremities Skin:? No lesions noted Psych:? Normal mentation and affect H&P: Results Labs Labs: Short CBC 05/08/25 Range/Units 02:46 WBC 20.0 H (4.5-10.0) K/mm3 Hgb 11.0 L (12.0-15.0) g/dL Hct 34.8 L (37.0-47.0) % Plt Count 166 (150-375) k/mm3 BMP 05/08/25 02:46 Sodium 138 Potassium 4.3 Chloride 104 Carbon Dioxide 23 BUN 45 H D Creatinine 2.76 H Glucose 120 H Calcium 9.7 Cardiac Enzymes 05/08/25 Range/Units 02:46 Total Creatine Kinase 154 H (30-135) U/L Liver Function 05/08/25 Range/Units 02:46 Total Bilirubin 1.1 (0.2-1.3) mg/dL AST 33 (14-36) U/L ALT 15 (6-35) U/L Alkaline Phosphatase 88 (38-126) U/L Albumin 3.8 (3.5-5.1) g/dL Urine 05/08/25 Range/Units 03:19 Urine Color [place] (Yellow) Urine Appearance Cloudy H (Clear) Urine pH 5.5 (5.0-9.0) Ur Specific [place] 1.025 (1.001-1.035) Urine Protein 3+ H (Negative) mg/dL Urine Glucose (UA) Negative (Negative) mg/dL Assessment and Plan Assessment and plan (1) Septic shock: Code(s): A41.9 - Sepsis, unspecified organism; R65.21 - Severe sepsis with septic shock Status: Acute Assessment and Plan: Patient presented with a fall, found to be hypotensive with right ureteral stone causing moderate to severe hydronephrosis -received 4-5 L of IV fluids in all this admission despite which she remained hypotensive, right IJ central line was placed in the ER and started on Levophed -05/08: patient status post cystoscopy, right retrograde pyelogram, right ureteral stent placement -patient remains on Levophed, will add vasopressin, Maintain MAP > 65 mmHg due for adequate end organ perfusion -patient with acute kidney injury, adequately fluid-resuscitated -continue to monitor urine output and renal function along with electrolytes -lactic acid was initially elevated but repeat lactic acid is 1.3 -05/08: Blood cultures have been obtained and pending -05/08: Urine cultures obtained and pending -will add stress dose steroids -Continue ceftriaxone (05/08) (2) Pyelonephritis: Code(s): N12 - Tubulo-interstitial nephritis, not specified as acute or chronic Status: Acute Assessment and Plan: Pyelonephritis likely related to right ureteral stone and hydronephrosis, status post right ureteral stent as above -continue antibiotics (3) Obstruction of right ureteropelvic junction (UPJ) due to stone: Code(s): N20.1 - Calculus of ureter Status: Acute Assessment and Plan: As above (4) Acute kidney injury: Code(s): N17.9 - Acute kidney failure, unspecified Status: Acute Assessment and Plan: Acute kidney injury likely related to septic shock, hypotension, hypovolemia, ATN, pyelonephritis -adequately fluid-resuscitated -continue vasopressor -lactic acid 2.4 on admission, repeat lactic acid 1.3 -monitor urine output, renal function and electrolytes (5) Hypothyroidism, unspecified: Qualifiers: Hypothyroidism type: unspecified Qualified Code(s): E03.9 - Hypothyroidism, unspecified Code(s): E03.9 - Hypothyroidism, unspecified Status: Acute Assessment and Plan: Continue Levothyroid (6) Atrial fibrillation: Code(s): I48.91 - Unspecified atrial fibrillation Status: Acute Assessment and Plan: Remains in AFib, rate controlled, continue Eliquis which is a home medication -will hold metoprolol since patient is on pressors Plan DVT prophylaxis: Eliquis Stress ulcer prophylaxis: Not indicated Nutrition: Start with clear liquids and advanced to heart healthy diet Code Status: Full code Critical Care Time Spent: 52 minutes Due to a high probability of clinically significant, life threatening deterioration, the patient required my highest level of preparedness to intervene emergently and I personally spent this critical care time directly and personally managing the patient. This critical care time included obtaining a history; examining the patient; pulse oximetry; ordering and review of studies; arranging urgent treatment with development of a management plan; evaluation of patient's response to treatment; frequent reassessment; and discussions with other providers. It was exclusive of separately billable procedures and treating other patients and teaching time. Please see Assessment and Plan section and the rest of the note for further information on patient assessment and treatment This dictation may have been done utilizing a voice recognition system. Attempts have been made to correct errors. However, there may be uncorrected grammatical, spelling, and recognitions errors present. Quality VTE Prophylaxis VTE prophylaxis: pharmacologic ordered Hospitalist MIPS Advance Care Plan I have confirmed that the patient's Advanced Care Plan is present, code status is documented, or surrogate decision maker is listed in patient medical record.: Yes Medication Reconciliation I have utilized all available resources to obtain, update and review the patients current medications (includes all prescriptions, OTC, herbals, cannabis, and nutritional supplements).: Yes
[2025-05-08] MEDS: NOREPINEPHRINE 8 MG/D5W 250 ML 8 MG/250 ML BAG 37.5 MG IV CONT (18:07)
[2025-05-08] MEDS: APIXABAN 5 MG TABLET PO (20:05)
[2025-05-09] VITALS (19 sets, daily range): BP systolic 95–141; BP diastolic 58–98; PULSE 75–108; RESP 17–23; TEMP 36.8; O2SAT 92–97
[2025-05-09] MEDS: SODIUM CHLORIDE 0.9% IV 1,000 ML 125 ML IV CONT (00:23)
[2025-05-09] MEDS: NOREPINEPHRINE 8 MG/D5W 250 ML 8 MG/250 ML BAG 37.5 MG IV CONT (01:29)
[2025-05-09] MEDS: cefTRIAXone 2 GM/NS 100 ML 2 GM/100 ML BAG IVPB (05:42)
[2025-05-09] MEDS: HYDROCORTISONE SODIUM SUCCINATE 100 MG/2 ML VIAL IV PUSH (05:46)
[2025-05-09] MEDS: LEVOTHYROXINE SODIUM 100 MCG TABLET PO (05:47)
[2025-05-09 06:08] LABS: Hematocrit 34.5 % (37.0-47.0); Hemoglobin 10.9 g/dL (12.0-15.0); Mean Corpuscular HGB Conc 31.6 g/dl (32-36); Mean Corpuscular Hemoglobin 31.2 pg (26-34); Mean Corpuscular Volume 98.9 fl (80-100); Mean Platelet Volume 10.2 fl (7.4-10.4); Platelet Count Result 176 k/mm3 (150-375); Red Blood Count 3.49 M/mm3 (4.2-5.4); Red Cell Distribution Width 14.5 % (11.5-14.5); White Blood Count 33.7 K/mm3 (4.5-10.0)
[2025-05-09 06:21] LABS: Lactic Acid Reflex 0.9 mmol/L (0.7-2.0)
[2025-05-09 06:23] LABS: Alanine Aminotransferase 15 U/L (6-35); Albumin Level 3.2 g/dL (3.5-5.1); Alkaline Phosphatase 82 U/L (38-126); Anion Gap 9 mmol/L (4-12); Aspartate Amino Transferase 64 U/L (14-36); Bilirubin,Total 0.4 mg/dL (0.2-1.3); Blood Urea Nitrogen 46 mg/dL (7-17); Calcium 8.3 mg/dL (8.4-10.2); Carbon Dioxide 19 mmol/L (22-30); Chloride 111 mmol/L (98-107); Creatine Kinase 904 U/L (30-135); Estimated CRCL calculation 25 ml/min; Estimated Glomerular Filt Rate 27; Glucose 163 mg/dL (65-110); Magnesium 1.7 mg/dL (1.6-2.3); Phosphorus 3.9 mg/dL (2.5-4.5); Potassium 4.4 mmol/L (3.4-5.0); Sodium 139 mmol/L (137-145); Total Protein 6.1 g/dL (6.3-8.2)
[2025-05-09 06:35] LABS: Band Neutrophils Percent 1 % (0-6); Lymphocytes Absolute Manual 2.02 K/mm3 (1.1-4.5); Monocytes Absolute Manual 1.01 K/mm3 (0.1-0.90); Monocytes Percent Manual 3 % (3-9); Neutrophils Absolute Manual 30.66 K/mm3 (1.3-6.7); Neutrophils Percent Manual 90 % (46-73); Total Cells Counted 100
[2025-05-09 06:36] LABS: Platelet Estimate Adequate (Adequate); Schistocytes None Seen
[2025-05-09] MEDS: SODIUM CHLORIDE 0.9% IV 1,000 ML 75 ML IV CONT ×2 (08:30→21:41)
[2025-05-09] MEDS: APIXABAN 5 MG TABLET PO ×2 (09:20→20:19)
--- NOTE | 2025-05-09 12:52 | P.PNINT_ITS ---
Progress Note: A&P Assessment and Plan (1) Septic shock: Code(s): A41.9 - Sepsis, unspecified organism; R65.21 - Severe sepsis with septic shock Status: Acute Assessment and Plan: Patient presented with a fall, found to be hypotensive with right ureteral stone causing moderate to severe hydronephrosis -received 4-5 L of IV fluids in all this admission despite which she remained hypotensive, right IJ central line was placed in the ER and started on Levophed -05/08: patient status post cystoscopy, right retrograde pyelogram, right ureteral stent placement -off all pressors,, Maintain MAP > 65 mmHg due for adequate end organ perfusion -patient with acute kidney injury, adequately fluid-resuscitated -continue to monitor urine output and renal function along with electrolytes -05/09: lactic acid this morning is 0.9 -05/08: Blood cultures growing E coli -susceptibilities pending -05/08: Urine cultures growing E coli -wean stress dose steroids -Continue ceftriaxone (05/08) (2) Pyelonephritis: Code(s): N12 - Tubulo-interstitial nephritis, not specified as acute or chronic Status: Acute Assessment and Plan: Pyelonephritis likely related to right ureteral stone and hydronephrosis, status post right ureteral stent as above -continue antibiotics (3) Obstruction of right ureteropelvic junction (UPJ) due to stone: Code(s): N20.1 - Calculus of ureter Status: Acute Assessment and Plan: As above (4) Acute kidney injury: Code(s): N17.9 - Acute kidney failure, unspecified Status: Acute Assessment and Plan: Acute kidney injury likely related to septic shock, hypotension, hypovolemia, ATN, pyelonephritis -adequately fluid-resuscitated -continue vasopressor -lactic acid 2.4 on admission, repeat lactic acid 0.9 this morning -good urine output, creatinine down to 1.80 (2.76 on admission) -monitor urine output, renal function and electrolytes (5) Hypothyroidism, unspecified: Qualifiers: Hypothyroidism type: unspecified Qualified Code(s): E03.9 - Hypothyroidism, unspecified Code(s): E03.9 - Hypothyroidism, unspecified Status: Acute Assessment and Plan: Continue Levothyroid (6) Atrial fibrillation: Code(s): I48.91 - Unspecified atrial fibrillation Status: Acute Assessment and Plan: Remains in AFib, rate controlled, continue Eliquis which is a home medication -continue to hold metoprolol as blood pressures are borderline patient just came off pressors Plan DVT prophylaxis: Eliquis Stress ulcer prophylaxis: Not indicated Nutrition: Tolerating heart healthy diet Code Status: Full code Critical Care Time Spent: 33 minutes Due to a high probability of clinically significant, life threatening deterioration, the patient required my highest level of preparedness to intervene emergently and I personally spent this critical care time directly and personally managing the patient. This critical care time included obtaining a history; examining the patient; pulse oximetry; ordering and review of studies; arranging urgent treatment with development of a management plan; evaluation of patient's response to treatment; frequent reassessment; and discussions with other providers. It was exclusive of separately billable procedures and treating other patients and teaching time. Please see Assessment and Plan section and the rest of the note for further information on patient assessment and treatment This dictation may have been done utilizing a voice recognition system. Attempts have been made to correct errors. However, there may be uncorrected grammatical, spelling, and recognitions errors present. Subjective Date/time seen: 05/09/25 12:52 Interval history: Septic shock, fall, right obstructing ureteral stone, hydronephrosis 05/08: status post cystoscopy, right retrograde pyelogram, right ureteral stent placed 05/09/2024: Patient seen and examined the ICU, remains on Levophed, blood pressures are great, have asked the bedside RN to start weaning Levophed. Patient is awake, alert, oriented x3, nonfocal, denies any chest pain, shortness a breath, abdominal pain, nausea vomiting. Patient states her appetite is decreased but she is drinking adequate fluids. Review of Systems Review of Systems: All systems reviewed & are unremarkable except as noted in HPI and below Exam Narrative: General: Pleasant female, in no acute distress at this time HEENT:? Pupils equal and reactive, sclera is clear, moist oral mucosa Neck:? Supple Respiratory:? Clear to auscultation bilaterally, no wheezing, adequate air entry will Cardiac:? Regular rate and rhythm, S1-S2 is normal Abdomen:? Soft, nontender, nondistended, normoactive bowel sound Extremities:? No edema, palpable pedal pulses Neuro:? Patient is awake, alert, oriented x3, nonfocal, answers to questions appropriately and follows simple commands in all extremities Skin:? No lesions noted Psych:? Normal mentation and affect Objective Data Vital Signs Vital Signs: Vital Signs - 24 hr 05/08/25 14:00 05/08/25 14:00 05/08/25 14:00 Temperature Pulse Rate 77 77 77 Respiratory Rate Blood Pressure 99/46 L 99/46 L Pulse Oximetry Oxygen Delivery Oxygen Flow Rate 05/08/25 14:00 05/08/25 15:12 05/08/25 16:00 Temperature 100.5 F H 98.4 F Pulse Rate 78 76 76 Respiratory Rate 19 15 19 Blood Pressure 99/46 L 113/63 Pulse Oximetry 95 93 96 Oxygen Delivery Nasal Cannula Oxygen Flow Rate 1 05/08/25 16:00 05/08/25 16:00 05/08/25 16:00 Temperature Pulse Rate 72 70 76 Respiratory Rate Blood Pressure 112/68 112/68 Pulse Oximetry Oxygen Delivery Oxygen Flow Rate 05/08/25 18:00 05/08/25 18:00 05/08/25 18:00 Temperature 99.2 F Pulse Rate 72 73 69 Respiratory Rate 18 Blood Pressure 125/71 125/71 125/71 Pulse Oximetry 96 Oxygen Delivery Oxygen Flow Rate 05/08/25 18:00 05/08/25 18:07 05/08/25 20:00 Temperature Pulse Rate 69 69 79 Respiratory Rate Blood Pressure 125/71 123/67 Pulse Oximetry Oxygen Delivery Oxygen Flow Rate 05/08/25 20:00 05/08/25 20:00 05/08/25 20:00 Temperature 98.1 F Pulse Rate 74 82 Respiratory Rate 19 Blood Pressure 123/67 Pulse Oximetry 96 97 Oxygen Delivery Nasal Cannula Oxygen Flow Rate 1 05/08/25 22:00 05/08/25 22:00 05/08/25 22:00 Temperature Pulse Rate 71 70 70 Respiratory Rate 18 Blood Pressure 123/59 L 123/59 L Pulse Oximetry 97 Oxygen Delivery Oxygen Flow Rate 05/09/25 00:00 05/09/25 00:00 05/09/25 00:00 Temperature 98.2 F Pulse Rate 81 82 78 Respiratory Rate 17 Blood Pressure 127/80 127/80 Pulse Oximetry 94 Oxygen Delivery Oxygen Flow Rate 05/09/25 00:00 05/09/25 01:29 05/09/25 01:29 Temperature Pulse Rate 75 75 Respiratory Rate Blood Pressure 101/59 L 101/59 L Pulse Oximetry 95 Oxygen Delivery Nasal Cannula Oxygen Flow Rate 1 05/09/25 02:00 05/09/25 02:00 05/09/25 02:00 Temperature Pulse Rate 87 87 87 Respiratory Rate 18 Blood Pressure 125/84 125/84 Pulse Oximetry 97 Oxygen Delivery Oxygen Flow Rate 05/09/25 04:00 05/09/25 04:00 05/09/25 04:00 Temperature 98.3 F Pulse Rate 90 91 90 Respiratory Rate 19 Blood Pressure 136/81 136/81 Pulse Oximetry 96 Oxygen Delivery Oxygen Flow Rate 05/09/25 04:00 05/09/25 06:00 05/09/25 06:00 Temperature Pulse Rate 86 86 Respiratory Rate Blood Pressure 97/80 L Pulse Oximetry 96 Oxygen Delivery Nasal Cannula Oxygen Flow Rate 1 05/09/25 06:00 05/09/25 07:20 05/09/25 07:30 Temperature Pulse Rate 86 93 92 Respiratory Rate 22 H Blood Pressure 97/80 L 132/82 136/76 Pulse Oximetry 95 Oxygen Delivery Oxygen Flow Rate 05/09/25 07:40 05/09/25 08:00 05/09/25 08:00 Temperature 98.3 F Pulse Rate 95 106 H 95 Respiratory Rate 18 Blood Pressure 141/90 H 141/98 H 131/83 Pulse Oximetry 95 Oxygen Delivery Oxygen Flow Rate 05/09/25 08:27 05/09/25 08:30 05/09/25 10:00 Temperature 98.3 F Pulse Rate 105 H 105 H Respiratory Rate 22 H Blood Pressure 95/64 L 103/65 Pulse Oximetry 96 96 Oxygen Delivery Room Air Oxygen Flow Rate 05/09/25 10:00 05/09/25 12:00 05/09/25 12:00 Temperature 98.3 F Pulse Rate 104 H 108 H 107 H Respiratory Rate 18 Blood Pressure 95/58 L Pulse Oximetry 94 Oxygen Delivery Oxygen Flow Rate Intake/Output Intake/Output: Intake & Output 05/06/25 05/07/25 05/08/25 05/09/25 23:59 23:59 23:59 23:59 Intake Total 7029.0 2981.3 Output Total 450 1350 Balance 6579.0 1631.3 Meds/Results Medications: Active Medications Generic Name Dose Route Start Last Admin Trade Name Freq PRN Reason Stop Dose Admin Acetaminophen 650 mg 05/08/25 10:21 05/08/25 11:34 Acetaminophen 325 Mg Tablet PO 650 mg Q6H PRN Administration Mild Pain (1-3) or Fever Apixaban 5 mg 05/08/25 21:00 05/09/25 09:20 Apixaban 5 Mg Tablet PO 5 mg Q12HR YUN Administration Hydrocortisone Sodium Succinate 50 mg 05/09/25 18:00 Hydrocortisone Sodium Succinate 100 Mg/2 Ml Vial IV PUSH 05/10/25 18:01 Q12H YUN Ceftriaxone Sodium 2 gm in 100 mls @ 200 mls/hr 05/09/25 05:00 05/09/25 06:15 Rocephin 2 Gm/Ns 100 Ml IVPB Infused Q24H YUN Infusion Sodium Chloride 1,000 mls @ 75 mls/hr 05/08/25 06:15 05/09/25 08:30 Normal Saline Iv IV CONT 75 mls/hr .[id number] YUN Administration Norepinephrine Bitartrate 8 mg in 250 mls @ 0 mls/hr 05/08/25 10:20 05/09/25 12:00 Levophed 8 Mg/D5w 250 Ml IV CONT 0 mcg/min .Q0M YUN 0 mls/hr Titration Protocol Vasopressin 100 units/ 100 mls @ 1.2 mls/hr 05/08/25 10:20 05/08/25 18:00 Dextrose IV CONT 0 units/min .Q72H YUN 0 mls/hr Titration Protocol 0.02 UNITS/MIN Levothyroxine Sodium 100 mcg 05/09/25 06:30 05/09/25 05:47 Levothyroxine Sodium 100 Mcg Tablet PO 100 mcg DAILY@0630 YUN Administration Ondansetron HCl 4 mg 05/08/25 06:13 Ondansetron Inj 4 Mg/2 Ml Vial IV PUSH Q4H PRN Nausea Sodium Chloride 10 ml 05/09/25 14:00 Central Line Flush IV PUSH Q8HR YUN Sodium Chloride 20 ml 05/09/25 06:58 Central Line Flush IV PUSH PRN PRN after blood draws Radiology Results: ITS Impressions Hip/Pelvis X-Ray 05/08/25 05:18 Impression: No acute abnormality. Stable severe degenerative change of the right hip joint with chronic remodeling of the right femoral head which is diminutive in overall appearance. Moderate to advanced degenerative change of the left hip joint, similar to prior exam. Pelvis CT 05/08/25 05:21 Impression: No acute fracture or dislocation seen. Severe degenerative changes of both hips, as detailed above, right worse than left. There is chronic remodeling and deformity of the right femoral head. 15 mm right renal pelvis stone with moderate to severe right hydronephrosis and findings compatible with ATN of the right kidney with patchy retained contrast enhancement of the right renal parenchyma. Shoulder X-Ray 05/08/25 05:24 Impression: Severe glenohumeral joint degenerative change. No acute fracture or dislocation seen. Abdomen/Pelvis CT 05/08/25 05:27 Impression: 16 mm right renal pelvis stone with moderate to severe right hydronephrosis. Patchy retained contrast enhancement of the right renal parenchyma with shotty right perinephric and aortocaval lymph nodes. Findings are consistent with ATN and possible superimposed pyelonephritis. Correlate clinically and with urinalysis. ADDENDUM: 05/08/25 0533 3.1 cm peripherally calcified left upper quadrant lesion is presumably arising from the left adrenal gland, indeterminate, though likely benign given the dense eggshell calcification. Abdomen X-Ray 05/08/25 05:31 Impression: Probable 16 mm stone projecting just the right of the L3-L4 disc space, which correlates with findings on prior CT. 3.1 cm peripherally calcified mass in left upper lobe which corresponds prior CT scan, possibly adrenal lesion. Chest X-Ray 05/08/25 06:53 Impression: Right IJ line in place. Clear lungs. Retrograde Pyelogram 05/08/25 08:03 IMPRESSION: 1. Right internal ureteral stent placement. Please refer to real-time procedural findings for details. Labs Labs: Laboratory Results - last 24 hr 05/09/25 05:56 WBC 33.7 H RBC 3.49 L Hgb 10.9 L Hct 34.5 L MCV 98.9 MCH 31.2 MCHC 31.6 L RDW 14.5 Plt Count 176 MPV 10.2 Immature Gran % (Auto) Not Reportable Neut % (Auto) Not Reportable Lymph % (Auto) Not Reportable [place] % (Auto) Not Reportable Eos % (Auto) Not Reportable Baso % (Auto) Not Reportable Lymph # (Auto) Not Reportable [place] # (Auto) Not Reportable Eos # (Auto) Not Reportable Baso # (Auto) Not Reportable Abs Immat Gran (auto) Not Reportable Absolute Neuts (auto) Not Reportable Absolute Nucleated RBC Not Reportable Total Counted 100 Neutrophils % (Manual) 90 H Band Neutrophils % 1 Lymphocytes % (Manual) 6.0 L Monocytes % (Manual) 3 Nucleated RBC % Not Reportable Abs Neuts (Manual) 30.66 H Abs Lymphs (Manual) 2.02 Abs Monocytes (Manual) 1.01 H Platelet Estimate Adequate Schistocytes None seen Sodium 139 Potassium 4.4 Chloride 111 H Carbon Dioxide 19 L Anion Gap 9 BUN 46 H Creatinine 1.80 H Estim Creat Clear Calc 25 Estimated GFR 27 L Glucose 163 H Lactic Acid 0.9 Calcium 8.3 L Phosphorus 3.9 Magnesium 1.7 Total Bilirubin 0.4 AST 64 H ALT 15 Alkaline Phosphatase 82 Total Creatine Kinase 904 H Total Protein 6.1 L Albumin 3.2 L Quality VTE Prophylaxis VTE prophylaxis: pharmacologic ordered
--- NOTE | 2025-05-09 14:10 | P.PNUR_ITS ---
Progress Note: A&P Assessment and Plan (1) Obstruction of right ureteropelvic junction (UPJ) due to stone: Code(s): N20.1 - Calculus of ureter Status: Acute Assessment and Plan: - Cont care per primary team via abx and ICU care - Patient voiding well, minimal discomfort, Cr trending down though WBC did bump - Dr. Bishop to perform definitive treatment for stone as well as stent removal/replacement in future - discussed importance of this and of avoiding retained stent. Patient endorsed understanding. Subjective Subjective Date/Time Seen: 05/09/25 14:10 Interval history: Patient states she is feeling better today, and eating during our conversation. Denies any pain. Off pressors, Cr trending down but WBC is up at 33. Voiding well per pt report. Exam Const: General: comfortable and no acute distress GI: Other: Nondistended : Other: No CVA tenderness Objective Data Vital Signs Vital Signs: Vital Signs - 24 hr 05/08/25 15:12 05/08/25 16:00 05/08/25 16:00 Temperature 36.9 C Pulse Rate 76 76 72 Respiratory Rate 15 19 Blood Pressure 113/63 112/68 Pulse Oximetry 93 96 Oxygen Delivery Nasal Cannula Oxygen Flow Rate 1 05/08/25 16:00 05/08/25 16:00 05/08/25 18:00 Temperature 37.3 C Pulse Rate 70 76 72 Respiratory Rate 18 Blood Pressure 112/68 125/71 Pulse Oximetry 96 Oxygen Delivery Oxygen Flow Rate 05/08/25 18:00 05/08/25 18:00 05/08/25 18:00 Temperature Pulse Rate 73 69 69 Respiratory Rate Blood Pressure 125/71 125/71 Pulse Oximetry Oxygen Delivery Oxygen Flow Rate 05/08/25 18:07 05/08/25 20:00 05/08/25 20:00 Temperature 36.7 C Pulse Rate 69 79 74 Respiratory Rate 19 Blood Pressure 125/71 123/67 123/67 Pulse Oximetry 96 Oxygen Delivery Oxygen Flow Rate 05/08/25 20:00 05/08/25 20:00 05/08/25 22:00 Temperature Pulse Rate 82 71 Respiratory Rate Blood Pressure 123/59 L Pulse Oximetry 97 Oxygen Delivery Nasal Cannula Oxygen Flow Rate 1 05/08/25 22:00 05/08/25 22:00 05/09/25 00:00 Temperature Pulse Rate 70 70 81 Respiratory Rate 18 Blood Pressure 123/59 L 127/80 Pulse Oximetry 97 Oxygen Delivery Oxygen Flow Rate 05/09/25 00:00 05/09/25 00:00 05/09/25 00:00 Temperature 36.8 C Pulse Rate 82 78 Respiratory Rate 17 Blood Pressure 127/80 Pulse Oximetry 94 95 Oxygen Delivery Nasal Cannula Oxygen Flow Rate 1 05/09/25 01:29 05/09/25 01:29 05/09/25 02:00 Temperature Pulse Rate 75 75 87 Respiratory Rate Blood Pressure 101/59 L 101/59 L 125/84 Pulse Oximetry Oxygen Delivery Oxygen Flow Rate 05/09/25 02:00 05/09/25 02:00 05/09/25 04:00 Temperature Pulse Rate 87 87 90 Respiratory Rate 18 Blood Pressure 125/84 Pulse Oximetry 97 Oxygen Delivery Oxygen Flow Rate 05/09/25 04:00 05/09/25 04:00 05/09/25 04:00 Temperature 36.8 C Pulse Rate 91 90 Respiratory Rate 19 Blood Pressure 136/81 136/81 Pulse Oximetry 96 96 Oxygen Delivery Nasal Cannula Oxygen Flow Rate 1 05/09/25 06:00 05/09/25 06:00 05/09/25 06:00 Temperature Pulse Rate 86 86 86 Respiratory Rate 22 H Blood Pressure 97/80 L 97/80 L Pulse Oximetry 95 Oxygen Delivery Oxygen Flow Rate 05/09/25 07:20 05/09/25 07:30 05/09/25 07:40 Temperature Pulse Rate 93 92 95 Respiratory Rate Blood Pressure 132/82 136/76 141/90 H Pulse Oximetry Oxygen Delivery Oxygen Flow Rate 05/09/25 08:00 05/09/25 08:00 05/09/25 08:27 Temperature 36.8 C Pulse Rate 106 H 95 Respiratory Rate 18 Blood Pressure 141/98 H 131/83 Pulse Oximetry 95 96 Oxygen Delivery Room Air Oxygen Flow Rate 05/09/25 08:30 05/09/25 10:00 05/09/25 10:00 Temperature 36.8 C Pulse Rate 105 H 105 H 104 H Respiratory Rate 22 H Blood Pressure 95/64 L 103/65 Pulse Oximetry 96 Oxygen Delivery Oxygen Flow Rate 05/09/25 12:00 05/09/25 12:00 05/09/25 12:00 Temperature 36.8 C Pulse Rate 108 H 107 H 93 Respiratory Rate 18 18 Blood Pressure 95/58 L Pulse Oximetry 94 94 Oxygen Delivery Room Air Oxygen Flow Rate 05/09/25 12:00 Temperature Pulse Rate 93 Respiratory Rate Blood Pressure Pulse Oximetry Oxygen Delivery Oxygen Flow Rate Intake/Output Intake/Output: Intake & Output 05/06/25 05/07/25 05/08/25 05/09/25 23:59 23:59 23:59 23:59 Intake Total 7029.0 3221.3 Output Total 450 1350 Balance 6579.0 1871.3 Meds/Results Medications: Active Medications Generic Name Dose Route Start Last Admin Trade Name Freq PRN Reason Stop Dose Admin Acetaminophen 650 mg 05/08/25 10:21 05/08/25 11:34 Acetaminophen 325 Mg Tablet PO 650 mg Q6H PRN Administration Mild Pain (1-3) or Fever Apixaban 5 mg 05/08/25 21:00 05/09/25 09:20 Apixaban 5 Mg Tablet PO 5 mg Q12HR YUN Administration Hydrocortisone Sodium Succinate 50 mg 05/09/25 18:00 Hydrocortisone Sodium Succinate 100 Mg/2 Ml Vial IV PUSH 05/10/25 18:01 Q12H YUN Ceftriaxone Sodium 2 gm in 100 mls @ 200 mls/hr 05/09/25 05:00 05/09/25 06:15 Rocephin 2 Gm/Ns 100 Ml IVPB Infused Q24H YUN Infusion Sodium Chloride 1,000 mls @ 75 mls/hr 05/08/25 06:15 05/09/25 08:30 Normal Saline Iv IV CONT 75 mls/hr .[id number] YUN Administration Norepinephrine Bitartrate 8 mg in 250 mls @ 0 mls/hr 05/08/25 10:20 05/09/25 12:00 Levophed 8 Mg/D5w 250 Ml IV CONT 0 mcg/min .Q0M YUN 0 mls/hr Titration Protocol Vasopressin 100 units/ 100 mls @ 1.2 mls/hr 05/08/25 10:20 05/08/25 18:00 Dextrose IV CONT 0 units/min .Q72H YUN 0 mls/hr Titration Protocol 0.02 UNITS/MIN Levothyroxine Sodium 100 mcg 05/09/25 06:30 05/09/25 05:47 Levothyroxine Sodium 100 Mcg Tablet PO 100 mcg DAILY@0630 YUN Administration Ondansetron HCl 4 mg 05/08/25 06:13 Ondansetron Inj 4 Mg/2 Ml Vial IV PUSH Q4H PRN Nausea Sodium Chloride 10 ml 05/09/25 14:00 Central Line Flush IV PUSH Q8HR YUN Sodium Chloride 20 ml 05/09/25 06:58 Central Line Flush IV PUSH PRN PRN after blood draws Radiology Results: ITS Impressions Hip/Pelvis X-Ray 05/08/25 05:18 Impression: No acute abnormality. Stable severe degenerative change of the right hip joint with chronic remodeling of the right femoral head which is diminutive in overall appearance. Moderate to advanced degenerative change of the left hip joint, similar to prior exam. Pelvis CT 05/08/25 05:21 Impression: No acute fracture or dislocation seen. Severe degenerative changes of both hips, as detailed above, right worse than left. There is chronic remodeling and deformity of the right femoral head. 15 mm right renal pelvis stone with moderate to severe right hydronephrosis and findings compatible with ATN of the right kidney with patchy retained contrast enhancement of the right renal parenchyma. Shoulder X-Ray 05/08/25 05:24 Impression: Severe glenohumeral joint degenerative change. No acute fracture or dislocation seen. Abdomen/Pelvis CT 05/08/25 05:27 Impression: 16 mm right renal pelvis stone with moderate to severe right hydronephrosis. Patchy retained contrast enhancement of the right renal parenchyma with shotty right perinephric and aortocaval lymph nodes. Findings are consistent with ATN and possible superimposed pyelonephritis. Correlate clinically and with urinalysis. ADDENDUM: 05/08/25 0533 3.1 cm peripherally calcified left upper quadrant lesion is presumably arising from the left adrenal gland, indeterminate, though likely benign given the dense eggshell calcification. Abdomen X-Ray 05/08/25 05:31 Impression: Probable 16 mm stone projecting just the right of the L3-L4 disc space, which correlates with findings on prior CT. 3.1 cm peripherally calcified mass in left upper lobe which corresponds prior CT scan, possibly adrenal lesion. Chest X-Ray 05/08/25 06:53 Impression: Right IJ line in place. Clear lungs. Retrograde Pyelogram 05/08/25 08:03 IMPRESSION: 1. Right internal ureteral stent placement. Please refer to real-time procedural findings for details. Labs Labs: Laboratory Results - last 24 hr 05/09/25 05:56 WBC 33.7 H RBC 3.49 L Hgb 10.9 L Hct 34.5 L MCV 98.9 MCH 31.2 MCHC 31.6 L RDW 14.5 Plt Count 176 MPV 10.2 Immature Gran % (Auto) Not Reportable Neut % (Auto) Not Reportable Lymph % (Auto) Not Reportable [place] % (Auto) Not Reportable Eos % (Auto) Not Reportable Baso % (Auto) Not Reportable Lymph # (Auto) Not Reportable [place] # (Auto) Not Reportable Eos # (Auto) Not Reportable Baso # (Auto) Not Reportable Abs Immat Gran (auto) Not Reportable Absolute Neuts (auto) Not Reportable Absolute Nucleated RBC Not Reportable Total Counted 100 Neutrophils % (Manual) 90 H Band Neutrophils % 1 Lymphocytes % (Manual) 6.0 L Monocytes % (Manual) 3 Nucleated RBC % Not Reportable Abs Neuts (Manual) 30.66 H Abs Lymphs (Manual) 2.02 Abs Monocytes (Manual) 1.01 H Platelet Estimate Adequate Schistocytes None seen Sodium 139 Potassium 4.4 Chloride 111 H Carbon Dioxide 19 L Anion Gap 9 BUN 46 H Creatinine 1.80 H Estim Creat Clear Calc 25 Estimated GFR 27 L Glucose 163 H Lactic Acid 0.9 Calcium 8.3 L Phosphorus 3.9 Magnesium 1.7 Total Bilirubin 0.4 AST 64 H ALT 15 Alkaline Phosphatase 82 Total Creatine Kinase 904 H Total Protein 6.1 L Albumin 3.2 L
[2025-05-09] MEDS: CENTRAL LINE FLUSH 10 ML IV PUSH ×2 (17:38→20:26)
[2025-05-09] MEDS: HYDROCORTISONE SODIUM SUCCINATE 100 MG/2 ML VIAL 50 MG IV PUSH (17:40)
[2025-05-10] VITALS (8 sets, daily range): BP systolic 107–135; BP diastolic 69–89; PULSE 82–113; RESP 16–23; TEMP 36.3–36.7; O2SAT 94–100
[2025-05-10] MEDS: cefTRIAXone 2 GM/NS 100 ML 2 GM/100 ML BAG IVPB (05:44)
[2025-05-10] MEDS: LEVOTHYROXINE SODIUM 100 MCG TABLET PO (05:50)
[2025-05-10] MEDS: HYDROCORTISONE SODIUM SUCCINATE 100 MG/2 ML VIAL 50 MG IV PUSH ×2 (05:51→17:41)
[2025-05-10] MEDS: CENTRAL LINE FLUSH 10 ML IV PUSH ×3 (05:52→21:47)
--- NOTE | 2025-05-10 06:01 | ECG_ITS ---
Test Date: 2025-05-10 06:08:35 Measurements Intervals [place] Rate: 103 P: 219 NC: 215 QRS: -29 QRSD: 104 T: -34 QT: 339 QTc: 446 Interpretive Statements SINUS OR ECTOPIC ATRIAL TACHYCARDIA INCOMPLETE RIGHT BUNDLE BRANCH BLOCK LOW QRS VOLTAGE IN PRECORDIAL LEADS BORDERLINE R WAVE PROGRESSION, ANTERIOR LEADS ST-T WAVE ABNORMALITY IN ANT/INF LEADS- CONSIDER ISCHEMIA BASELINE ARTIFACT- I, III, AVR, AVL ,AVF ABNORMAL ECG Compared to ECG 05/08/2025 01:34:57 ST-T WAVE ABNORMALITY NOW PRESENT POSSIBLE ISCHEMIA NOW PRSENT Electronically Signed On 05-10-2025 07:14:54 CDT by Sanford Gil D.O.
[2025-05-10 06:14] LABS: Basophils Percent Auto 0.1 % (0.2-1.2); Eosinophils Percent Auto 0.1 % (0-4.4); Hemoglobin 9.5 g/dL (12.0-15.0); Immature Granulocyte Absolute 0.26 K/mm3 (0.00-0.031); Immature Granulocyte Percent A 1.4 % (0-0.5); Lymphocytes Absolute Auto 1.18 K/mm3 (0.9-3.2); Lymphocytes Percent Auto 6.5 % (18.3-44.2); Mean Corpuscular HGB Conc 31.7 g/dl (32-36); Mean Corpuscular Hemoglobin 30.8 pg (26-34); Mean Corpuscular Volume 97.4 fl (80-100); Mean Platelet Volume 10.7 fl (7.4-10.4); Monocytes Absolute Auto 0.7 K/mm3 (0.1-0.6); Monocytes Percent Auto 3.6 % (2.6-8.5); Neutrophils Absolute Auto 15.9 K/mm3 (1.3-6.7); Neutrophils Percent Auto 88.3 % (45.5-73.1); Platelet Count Result 132 k/mm3 (150-375); Red Blood Count 3.08 M/mm3 (4.2-5.4); Red Cell Distribution Width 14.5 % (11.5-14.5); White Blood Count 18.1 K/mm3 (4.5-10.0)
[2025-05-10 06:27] LABS: Alanine Aminotransferase 18 U/L (6-35); Albumin Level 2.8 g/dL (3.5-5.1); Alkaline Phosphatase 65 U/L (38-126); Anion Gap 8 mmol/L (4-12); Aspartate Amino Transferase 55 U/L (14-36); Bilirubin,Total 0.2 mg/dL (0.2-1.3); Blood Urea Nitrogen 47 mg/dL (7-17); Calcium 8.5 mg/dL (8.4-10.2); Carbon Dioxide 20 mmol/L (22-30); Chloride 114 mmol/L (98-107); Estimated CRCL calculation 33 ml/min; Estimated Glomerular Filt Rate 37; Glucose 103 mg/dL (65-110); Magnesium 1.8 mg/dL (1.6-2.3); Phosphorus 2.9 mg/dL (2.5-4.5); Potassium 3.7 mmol/L (3.4-5.0); Sodium 142 mmol/L (137-145); Total Protein 5.4 g/dL (6.3-8.2)
[2025-05-10] MEDS: APIXABAN 5 MG TABLET PO ×2 (08:09→21:44)
--- NOTE | 2025-05-10 09:06 | WPDINTPN ---
Progress Note: A&P Assessment and Plan (1) Septic shock: Code(s): A41.9 - Sepsis, unspecified organism; R65.21 - Severe sepsis with septic shock Status: Acute Assessment and Plan: Patient presented with a fall, found to be hypotensive with right ureteral stone causing moderate to severe hydronephrosis -received 4-5 L of IV fluids in all this admission despite which she remained hypotensive, right IJ central line was placed in the ER and started on Levophed -05/08: patient status post cystoscopy, right retrograde pyelogram, right ureteral stent placement -off all pressors,, Maintain MAP > 65 mmHg due for adequate end organ perfusion -patient with acute kidney injury, adequately fluid-resuscitated -continue to monitor urine output and renal function along with electrolytes -05/09: lactic acid this morning is 0.9 -05/08: Blood cultures growing E coli -sensitive to ceftriaxone -05/08: Urine cultures growing E coli -wean stress dose steroids -Continue ceftriaxone (05/08) -WBC count trending down (2) Pyelonephritis: Code(s): N12 - Tubulo-interstitial nephritis, not specified as acute or chronic Status: Acute Assessment and Plan: Pyelonephritis likely related to right ureteral stone and hydronephrosis, status post right ureteral stent as above -continue antibiotics (3) Obstruction of right ureteropelvic junction (UPJ) due to stone: Code(s): N20.1 - Calculus of ureter Status: Acute Assessment and Plan: Patient will be seeing Urology for definitive treatment of the stone (4) Acute kidney injury: Code(s): N17.9 - Acute kidney failure, unspecified Status: Acute Assessment and Plan: Acute kidney injury likely related to septic shock, hypotension, hypovolemia, ATN, pyelonephritis -adequately fluid-resuscitated -continue vasopressor -lactic acid 2.4 on admission, repeat lactic acid 0.9 this morning -good urine output, creatinine down to 1.39 (2.76 on admission) -monitor urine output, renal function and electrolytes (5) Hypothyroidism, unspecified: Qualifiers: Hypothyroidism type: unspecified Qualified Code(s): E03.9 - Hypothyroidism, unspecified Code(s): E03.9 - Hypothyroidism, unspecified Status: Acute Assessment and Plan: Continue Levothyroid (6) Atrial fibrillation: Code(s): I48.91 - Unspecified atrial fibrillation Status: Acute Assessment and Plan: Remains in AFib, rate controlled, continue Eliquis which is a home medication -continue to hold metoprolol as blood pressures are borderline patient just came off pressors Plan DVT prophylaxis: Eliquis Stress ulcer prophylaxis: Not indicated Nutrition: Tolerating heart healthy diet Code Status: Full code Critical Care Time Spent: 31 minutes Patient may be transferred out of the ICU Discussed with patient, updated with her condition and plan of care. Answered all questions Due to a high probability of clinically significant, life threatening deterioration, the patient required my highest level of preparedness to intervene emergently and I personally spent this critical care time directly and personally managing the patient. This critical care time included obtaining a history; examining the patient; pulse oximetry; ordering and review of studies; arranging urgent treatment with development of a management plan; evaluation of patient's response to treatment; frequent reassessment; and discussions with other providers. It was exclusive of separately billable procedures and treating other patients and teaching time. Please see Assessment and Plan section and the rest of the note for further information on patient assessment and treatment This dictation may have been done utilizing a voice recognition system. Attempts have been made to correct errors. However, there may be uncorrected grammatical, spelling, and recognitions errors present. Subjective Date/time seen: 05/10/25 09:06 Interval history: Septic shock, fall, right obstructing ureteral stone, hydronephrosis 05/08: status post cystoscopy, right retrograde pyelogram, right ureteral stent placed 05/09/2024: Patient seen and examined the ICU, r off all pressors since the morning of 05/09/2025. Hemodynamically stable, urine output has been very good, afebrile. Patient is awake, alert, oriented x3, nonfocal, denies any chest pain, shortness a breath, abdominal pain, nausea vomiting. Oral intake is improved. Review of Systems Review of Systems: All systems reviewed & are unremarkable except as noted in HPI and below Exam Narrative: General: Pleasant female, in no acute distress at this time HEENT:? Pupils equal and reactive, sclera is clear, moist oral mucosa Neck:? Supple Respiratory:? Clear to auscultation bilaterally, no wheezing, adequate air entry will Cardiac:? Regular rate and rhythm, S1-S2 is normal Abdomen:? Soft, nontender, nondistended, normoactive bowel sound Extremities:? No edema, palpable pedal pulses Neuro:? Patient is awake, alert, oriented x3, nonfocal, answers to questions appropriately and follows simple commands in all extremities Skin:? No lesions noted Psych:? Normal mentation and affect Objective Data Vital Signs Vital Signs: Vital Signs - 24 hr 05/09/25 10:00 05/09/25 10:00 05/09/25 12:00 Temperature 98.3 F Pulse Rate 105 H 104 H 108 H Respiratory Rate 22 H Blood Pressure 103/65 Pulse Oximetry 96 Oxygen Delivery 05/09/25 12:00 05/09/25 12:00 05/09/25 12:00 Temperature 98.3 F Pulse Rate 107 H 93 93 Respiratory Rate 18 18 Blood Pressure 95/58 L Pulse Oximetry 94 94 Oxygen Delivery Room Air 05/09/25 14:00 05/09/25 14:00 05/09/25 16:00 Temperature Pulse Rate 94 94 94 Respiratory Rate 20 Blood Pressure 105/70 Pulse Oximetry 93 Oxygen Delivery 05/09/25 16:00 05/09/25 16:00 05/09/25 18:00 Temperature Pulse Rate 94 94 101 H Respiratory Rate 20 20 20 Blood Pressure 105/70 99/64 L Pulse Oximetry 93 93 92 Oxygen Delivery Room Air 05/09/25 20:00 05/09/25 20:00 05/09/25 20:20 Temperature 98.2 F Pulse Rate 105 H 105 H Respiratory Rate 23 H Blood Pressure 108/69 Pulse Oximetry 96 96 Oxygen Delivery Room Air 05/09/25 22:00 05/09/25 22:00 05/10/25 00:00 Temperature 98.0 F Pulse Rate 97 97 105 H Respiratory Rate 22 H 16 Blood Pressure 116/74 113/69 Pulse Oximetry 96 94 Oxygen Delivery 05/10/25 00:00 05/10/25 00:00 05/10/25 02:00 Temperature Pulse Rate 105 H 103 H Respiratory Rate Blood Pressure Pulse Oximetry 94 Oxygen Delivery Room Air 05/10/25 02:00 05/10/25 04:00 05/10/25 04:00 Temperature 98.1 F Pulse Rate 103 H 105 H 105 H Respiratory Rate 19 19 Blood Pressure 120/81 107/73 Pulse Oximetry 96 94 Oxygen Delivery 05/10/25 04:10 05/10/25 06:00 05/10/25 06:00 Temperature Pulse Rate 104 H 104 H Respiratory Rate 23 H Blood Pressure 122/77 Pulse Oximetry 94 96 Oxygen Delivery Room Air 05/10/25 08:00 05/10/25 08:00 Temperature Pulse Rate 113 H 113 H Respiratory Rate 22 H 22 H Blood Pressure 134/81 Pulse Oximetry 100 100 Oxygen Delivery Room Air Intake/Output Intake/Output: Intake & Output 05/07/25 05/08/25 05/09/25 05/10/25 23:59 23:59 23:59 23:59 Intake Total 7029.0 4450.0 300 Output Total 450 2650 900 Balance 6579.0 1800.0 -600 Meds/Results Medications: Active Medications Generic Name Dose Route Start Last Admin Trade Name Freq PRN Reason Stop Dose Admin Acetaminophen 650 mg 05/08/25 10:21 05/08/25 11:34 Acetaminophen 325 Mg Tablet PO 650 mg Q6H PRN Administration Mild Pain (1-3) or Fever Apixaban 5 mg 05/08/25 21:00 05/10/25 08:09 Apixaban 5 Mg Tablet PO 5 mg Q12HR YUN Administration Hydrocortisone Sodium Succinate 50 mg 05/09/25 18:00 05/10/25 05:51 Hydrocortisone Sodium Succinate 100 Mg/2 Ml Vial IV PUSH 05/10/25 18:01 50 mg Q12H YUN Administration Ceftriaxone Sodium 2 gm in 100 mls @ 200 mls/hr 05/09/25 05:00 05/10/25 06:15 Rocephin 2 Gm/Ns 100 Ml IVPB Infused Q24H YUN Infusion Sodium Chloride 1,000 mls @ 75 mls/hr 05/08/25 06:15 05/09/25 21:41 Normal Saline Iv IV CONT 75 mls/hr .[id number] YUN Administration Levothyroxine Sodium 100 mcg 05/09/25 06:30 05/10/25 05:50 Levothyroxine Sodium 100 Mcg Tablet PO 100 mcg DAILY@0630 YUN Administration Ondansetron HCl 4 mg 05/08/25 06:13 Ondansetron Inj 4 Mg/2 Ml Vial IV PUSH Q4H PRN Nausea Sodium Chloride 10 ml 05/09/25 14:00 05/10/25 05:52 Central Line Flush IV PUSH 10 ml Q8HR YUN Administration Sodium Chloride 20 ml 05/09/25 06:58 Central Line Flush IV PUSH PRN PRN after blood draws Radiology Results: ITS Impressions Hip/Pelvis X-Ray 05/08/25 05:18 Impression: No acute abnormality. Stable severe degenerative change of the right hip joint with chronic remodeling of the right femoral head which is diminutive in overall appearance. Moderate to advanced degenerative change of the left hip joint, similar to prior exam. Pelvis CT 05/08/25 05:21 Impression: No acute fracture or dislocation seen. Severe degenerative changes of both hips, as detailed above, right worse than left. There is chronic remodeling and deformity of the right femoral head. 15 mm right renal pelvis stone with moderate to severe right hydronephrosis and findings compatible with ATN of the right kidney with patchy retained contrast enhancement of the right renal parenchyma. Shoulder X-Ray 05/08/25 05:24 Impression: Severe glenohumeral joint degenerative change. No acute fracture or dislocation seen. Abdomen/Pelvis CT 05/08/25 05:27 Impression: 16 mm right renal pelvis stone with moderate to severe right hydronephrosis. Patchy retained contrast enhancement of the right renal parenchyma with shotty right perinephric and aortocaval lymph nodes. Findings are consistent with ATN and possible superimposed pyelonephritis. Correlate clinically and with urinalysis. ADDENDUM: 05/08/25 0533 3.1 cm peripherally calcified left upper quadrant lesion is presumably arising from the left adrenal gland, indeterminate, though likely benign given the dense eggshell calcification. Abdomen X-Ray 05/08/25 05:31 Impression: Probable 16 mm stone projecting just the right of the L3-L4 disc space, which correlates with findings on prior CT. 3.1 cm peripherally calcified mass in left upper lobe which corresponds prior CT scan, possibly adrenal lesion. Chest X-Ray 05/08/25 06:53 Impression: Right IJ line in place. Clear lungs. Retrograde Pyelogram 05/08/25 08:03 IMPRESSION: 1. Right internal ureteral stent placement. Please refer to real-time procedural findings for details. Labs Labs: Laboratory Results - last 24 hr 05/10/25 05:39 WBC 18.1 H RBC 3.08 L Hgb 9.5 L Hct 30.0 L MCV 97.4 MCH 30.8 MCHC 31.7 L RDW 14.5 Plt Count 132 L MPV 10.7 H Immature Gran % (Auto) 1.4 H Neut % (Auto) 88.3 H Lymph % (Auto) 6.5 L [place] % (Auto) 3.6 Eos % (Auto) 0.1 Baso % (Auto) 0.1 L Lymph # (Auto) 1.18 [place] # (Auto) 0.7 H Eos # (Auto) 0.0 Baso # (Auto) 0.0 Abs Immat Gran (auto) 0.26 H Absolute Neuts (auto) 15.9 H Absolute Nucleated RBC 0.000 Nucleated RBC % 0.0 Sodium 142 Potassium 3.7 Chloride 114 H Carbon Dioxide 20 L Anion Gap 8 BUN 47 H Creatinine 1.39 H Estim Creat Clear Calc 33 Estimated GFR 37 L Glucose 103 Calcium 8.5 Phosphorus 2.9 Magnesium 1.8 Total Bilirubin 0.2 AST 55 H ALT 18 Alkaline Phosphatase 65 Total Protein 5.4 L Albumin 2.8 L Quality VTE Prophylaxis VTE prophylaxis: pharmacologic ordered
[2025-05-10] MEDS: SODIUM CHLORIDE 0.9% IV 1,000 ML 75 ML IV CONT (12:24)
--- NOTE | 2025-05-10 14:02 | P.PNUR_ITS ---
Progress Note: A&P Assessment and Plan (1) Obstruction of right ureteropelvic junction (UPJ) due to stone: Code(s): N20.1 - Calculus of ureter Status: Acute Assessment and Plan: -patient overall. States she is feeling well. Creatinine is down to 1.4, white blood cell count is down to 18. She is out of the ICU. -continue to monitor the patient closely. Continue IV antibiotics and tailor to cultures. Will likely require 10-14 days total of antibiotics to ensure treatment of infection. - Dr. Bishop to perform definitive treatment for stone as well as stent removal/replacement in future - again discussed importance of this and of avoiding retained stent. Patient endorsed understanding. Subjective Subjective Date/Time Seen: 05/10/25 14:02 Interval history: NAEO. Patient is downgraded from the ICU. She continues states she is doing well. White blood cell count is trending down, creatinine is trending down as well. Exam Const: General: comfortable and no acute distress GI: Other: Nondistended : Other: No acute CVA tenderness Objective Data Vital Signs Vital Signs: Vital Signs - 24 hr 05/09/25 16:00 05/09/25 16:00 05/09/25 16:00 Temperature Pulse Rate 94 94 94 Respiratory Rate 20 20 Blood Pressure 105/70 Pulse Oximetry 93 93 Oxygen Delivery Room Air 05/09/25 18:00 05/09/25 20:00 05/09/25 20:00 Temperature 36.8 C Pulse Rate 101 H 105 H 105 H Respiratory Rate 20 23 H Blood Pressure 99/64 L 108/69 Pulse Oximetry 92 96 Oxygen Delivery 05/09/25 20:20 05/09/25 22:00 05/09/25 22:00 Temperature Pulse Rate 97 97 Respiratory Rate 22 H Blood Pressure 116/74 Pulse Oximetry 96 96 Oxygen Delivery Room Air 05/10/25 00:00 05/10/25 00:00 05/10/25 00:00 Temperature 36.7 C Pulse Rate 105 H 105 H Respiratory Rate 16 Blood Pressure 113/69 Pulse Oximetry 94 94 Oxygen Delivery Room Air 05/10/25 02:00 05/10/25 02:00 05/10/25 04:00 Temperature Pulse Rate 103 H 103 H 105 H Respiratory Rate 19 Blood Pressure 120/81 Pulse Oximetry 96 Oxygen Delivery 05/10/25 04:00 05/10/25 04:10 05/10/25 06:00 Temperature 36.7 C Pulse Rate 105 H 104 H Respiratory Rate 19 Blood Pressure 107/73 Pulse Oximetry 94 94 Oxygen Delivery Room Air 05/10/25 06:00 05/10/25 08:00 05/10/25 08:00 Temperature Pulse Rate 104 H 113 H 113 H Respiratory Rate 23 H 22 H 22 H Blood Pressure 122/77 134/81 Pulse Oximetry 96 100 100 Oxygen Delivery Room Air 05/10/25 10:15 Temperature Pulse Rate Respiratory Rate Blood Pressure Pulse Oximetry Oxygen Delivery Room Air Intake/Output Intake/Output: Intake & Output 05/07/25 05/08/25 05/09/25 05/10/25 23:59 23:59 23:59 23:59 Intake Total 7029.0 4450.0 1300 Output Total 450 2650 900 Balance 6579.0 1800.0 400 Meds/Results Medications: Active Medications Generic Name Dose Route Start Last Admin Trade Name Freq PRN Reason Stop Dose Admin Acetaminophen 650 mg 05/08/25 10:21 05/08/25 11:34 Acetaminophen 325 Mg Tablet PO 650 mg Q6H PRN Administration Mild Pain (1-3) or Fever Apixaban 5 mg 05/08/25 21:00 05/10/25 08:09 Apixaban 5 Mg Tablet PO 5 mg Q12HR YUN Administration Hydrocortisone Sodium Succinate 50 mg 05/09/25 18:00 05/10/25 05:51 Hydrocortisone Sodium Succinate 100 Mg/2 Ml Vial IV PUSH 05/10/25 18:01 50 mg Q12H YUN Administration Ceftriaxone Sodium 2 gm in 100 mls @ 200 mls/hr 05/09/25 05:00 05/10/25 06:15 Rocephin 2 Gm/Ns 100 Ml IVPB Infused Q24H YUN Infusion Sodium Chloride 1,000 mls @ 75 mls/hr 05/08/25 06:15 05/10/25 12:24 Normal Saline Iv IV CONT 75 mls/hr .[id number] YUN Administration Levothyroxine Sodium 100 mcg 05/09/25 06:30 05/10/25 05:50 Levothyroxine Sodium 100 Mcg Tablet PO 100 mcg DAILY@0630 YUN Administration Ondansetron HCl 4 mg 05/08/25 06:13 Ondansetron Inj 4 Mg/2 Ml Vial IV PUSH Q4H PRN Nausea Sodium Chloride 10 ml 05/09/25 14:00 05/10/25 12:25 Central Line Flush IV PUSH 10 ml Q8HR YUN Administration Sodium Chloride 20 ml 05/09/25 06:58 Central Line Flush IV PUSH PRN PRN after blood draws Radiology Results: ITS Impressions Hip/Pelvis X-Ray 05/08/25 05:18 Impression: No acute abnormality. Stable severe degenerative change of the right hip joint with chronic remodeling of the right femoral head which is diminutive in overall appearance. Moderate to advanced degenerative change of the left hip joint, similar to prior exam. Pelvis CT 05/08/25 05:21 Impression: No acute fracture or dislocation seen. Severe degenerative changes of both hips, as detailed above, right worse than left. There is chronic remodeling and deformity of the right femoral head. 15 mm right renal pelvis stone with moderate to severe right hydronephrosis and findings compatible with ATN of the right kidney with patchy retained contrast enhancement of the right renal parenchyma. Shoulder X-Ray 05/08/25 05:24 Impression: Severe glenohumeral joint degenerative change. No acute fracture or dislocation seen. Abdomen/Pelvis CT 05/08/25 05:27 Impression: 16 mm right renal pelvis stone with moderate to severe right hydronephrosis. Patchy retained contrast enhancement of the right renal parenchyma with shotty right perinephric and aortocaval lymph nodes. Findings are consistent with ATN and possible superimposed pyelonephritis. Correlate clinically and with urinalysis. ADDENDUM: 05/08/25 0533 3.1 cm peripherally calcified left upper quadrant lesion is presumably arising from the left adrenal gland, indeterminate, though likely benign given the dense eggshell calcification. Abdomen X-Ray 05/08/25 05:31 Impression: Probable 16 mm stone projecting just the right of the L3-L4 disc space, which correlates with findings on prior CT. 3.1 cm peripherally calcified mass in left upper lobe which corresponds prior CT scan, possibly adrenal lesion. Chest X-Ray 05/08/25 06:53 Impression: Right IJ line in place. Clear lungs. Retrograde Pyelogram 05/08/25 08:03 IMPRESSION: 1. Right internal ureteral stent placement. Please refer to real-time procedural findings for details. Labs Labs: Laboratory Results - last 24 hr 05/10/25 05:39 WBC 18.1 H RBC 3.08 L Hgb 9.5 L Hct 30.0 L MCV 97.4 MCH 30.8 MCHC 31.7 L RDW 14.5 Plt Count 132 L MPV 10.7 H Immature Gran % (Auto) 1.4 H Neut % (Auto) 88.3 H Lymph % (Auto) 6.5 L [place] % (Auto) 3.6 Eos % (Auto) 0.1 Baso % (Auto) 0.1 L Lymph # (Auto) 1.18 [place] # (Auto) 0.7 H Eos # (Auto) 0.0 Baso # (Auto) 0.0 Abs Immat Gran (auto) 0.26 H Absolute Neuts (auto) 15.9 H Absolute Nucleated RBC 0.000 Nucleated RBC % 0.0 Sodium 142 Potassium 3.7 Chloride 114 H Carbon Dioxide 20 L Anion Gap 8 BUN 47 H Creatinine 1.39 H Estim Creat Clear Calc 33 Estimated GFR 37 L Glucose 103 Calcium 8.5 Phosphorus 2.9 Magnesium 1.8 Total Bilirubin 0.2 AST 55 H ALT 18 Alkaline Phosphatase 65 Total Protein 5.4 L Albumin 2.8 L
[2025-05-10] MEDS: ACETAMINOPHEN 325 MG TABLET 650 MG PO (21:44)
[2025-05-11] MEDS: SODIUM CHLORIDE 0.9% IV 1,000 ML 75 ML IV CONT ×2 (02:01→14:58)
[2025-05-11 05:25] VITALS: BP 114/80; PULSE 80; RESP 20; TEMP 36.6; O2SAT 98
[2025-05-11] MEDS: cefTRIAXone 2 GM/NS 100 ML 2 GM/100 ML BAG IVPB (05:32)
[2025-05-11] MEDS: LEVOTHYROXINE SODIUM 100 MCG TABLET PO (05:32)
[2025-05-11] MEDS: CENTRAL LINE FLUSH 10 ML IV PUSH ×3 (05:32→21:34)
[2025-05-11 05:53] LABS: Basophils Percent Auto 0.1 % (0.2-1.2); Eosinophils Absolute Auto 0.1 K/mm3 (0-0.3); Eosinophils Percent Auto 0.5 % (0-4.4); Hematocrit 30.6 % (37.0-47.0); Hemoglobin 9.7 g/dL (12.0-15.0); Immature Granulocyte Absolute 0.17 K/mm3 (0.00-0.031); Immature Granulocyte Percent A 1.3 % (0-0.5); Lymphocytes Absolute Auto 1.44 K/mm3 (0.9-3.2); Mean Corpuscular HGB Conc 31.7 g/dl (32-36); Mean Corpuscular Hemoglobin 30.6 pg (26-34); Mean Corpuscular Volume 96.5 fl (80-100); Mean Platelet Volume 10.3 fl (7.4-10.4); Monocytes Absolute Auto 0.7 K/mm3 (0.1-0.6); Monocytes Percent Auto 5.1 % (2.6-8.5); Neutrophils Absolute Auto 10.7 K/mm3 (1.3-6.7); Platelet Count Result 131 k/mm3 (150-375); Red Blood Count 3.17 M/mm3 (4.2-5.4); Red Cell Distribution Width 14.2 % (11.5-14.5); White Blood Count 13.1 K/mm3 (4.5-10.0)
[2025-05-11 06:00] LABS: Anion Gap 8 mmol/L (4-12); Blood Urea Nitrogen 40 mg/dL (7-17); Calcium 8.6 mg/dL (8.4-10.2); Carbon Dioxide 21 mmol/L (22-30); Chloride 114 mmol/L (98-107); Estimated CRCL calculation 39 ml/min; Estimated Glomerular Filt Rate 45; Glucose 97 mg/dL (65-110); Magnesium 1.7 mg/dL (1.6-2.3); Phosphorus 2.5 mg/dL (2.5-4.5); Potassium 3.4 mmol/L (3.4-5.0); Sodium 143 mmol/L (137-145)
[2025-05-11 08:00] VITALS: BP 118/77; PULSE 78; RESP 19; TEMP 36.6; O2SAT 97
[2025-05-11 09:15] VITALS: RESP 20; O2SAT 98
[2025-05-11] MEDS: APIXABAN 5 MG TABLET PO ×2 (09:15→21:34)
--- NOTE | 2025-05-11 10:29 | PM.IMPN ---
Progress Note: A&P Assessment and Plan (1) Septic shock: Code(s): A41.9 - Sepsis, unspecified organism; R65.21 - Severe sepsis with septic shock Status: Acute Assessment and Plan: Patient presented with a fall, found to be hypotensive with right ureteral stone causing moderate to severe hydronephrosis -received 4-5 L of IV fluids in all this admission despite which she remained hypotensive, right IJ central line was placed in the ER and started on Levophed -05/08: patient status post cystoscopy, right retrograde pyelogram, right ureteral stent placement -off all pressors,, Maintain MAP > 65 mmHg due for adequate end organ perfusion -patient with acute kidney injury, adequately fluid-resuscitated -continue to monitor urine output and renal function along with electrolytes -05/09: lactic acid this morning is 0.9 -05/08: Blood cultures growing E coli -sensitive to ceftriaxone -05/08: Urine cultures growing E coli -wean stress dose steroids -status post ceftriaxone -reviewed urine culture and started Augmentin until 0 05/22 -WBC count trending down (2) Pyelonephritis: Code(s): N12 - Tubulo-interstitial nephritis, not specified as acute or chronic Status: Acute Assessment and Plan: Pyelonephritis likely related to right ureteral stone and hydronephrosis, status post right ureteral stent as above -continue antibiotics (3) Obstruction of right ureteropelvic junction (UPJ) due to stone: Code(s): N20.1 - Calculus of ureter Status: Acute Assessment and Plan: Patient will be seeing Urology for definitive treatment of the stone (4) Acute kidney injury: Code(s): N17.9 - Acute kidney failure, unspecified Status: Acute Assessment and Plan: Acute kidney injury likely related to septic shock, hypotension, hypovolemia, ATN, pyelonephritis -adequately fluid-resuscitated -continue vasopressor -lactic acid 2.4 on admission, repeat lactic acid 0.9 this morning -good urine output, creatinine down to 1.39 (2.76 on admission) -monitor urine output, renal function and electrolytes (5) Hypothyroidism, unspecified: Qualifiers: Hypothyroidism type: unspecified Qualified Code(s): E03.9 - Hypothyroidism, unspecified Code(s): E03.9 - Hypothyroidism, unspecified Status: Acute Assessment and Plan: Continue Levothyroid (6) Atrial fibrillation: Code(s): I48.91 - Unspecified atrial fibrillation Status: Acute Assessment and Plan: Remains in AFib, rate controlled, continue Eliquis which is a home medication -continue to hold metoprolol as blood pressures are borderline patient just came off pressors Plan DVT prophylaxis: Eliquis Stress ulcer prophylaxis: Not indicated Nutrition: Tolerating heart healthy diet Code Status: Full code Subjective Date/time seen: 05/11/25 10:29 Interval history: Patient reports of lightheadedness. Possibly due to dehydration. Encouraged oral intake. De-escalated antibiotic after reviewing the urine culture to Augmentin until 0 05/22 Review of Systems Review of Systems: All systems reviewed & are unremarkable except as noted in HPI and below Exam Narrative: General: Pleasant female, in no acute distress at this time HEENT:? Pupils equal and reactive, sclera is clear, moist oral mucosa Neck:? Supple Respiratory:? Clear to auscultation bilaterally, no wheezing, adequate air entry will Cardiac:? Regular rate and rhythm, S1-S2 is normal Abdomen:? Soft, nontender, nondistended, normoactive bowel sound Extremities:? No edema, palpable pedal pulses Neuro:? Patient is awake, alert, oriented x3, nonfocal, answers to questions appropriately and follows simple commands in all extremities Skin:? No lesions noted Psych:? Normal mentation and affect Objective Data Vital Signs Vital Signs: Vital Signs - 24 hr 05/10/25 14:45 05/10/25 21:02 05/11/25 05:25 Temperature 97.3 F L 97.7 F 97.8 F Pulse Rate 103 H 82 80 Respiratory Rate 22 H 20 20 Blood Pressure 129/70 135/89 114/80 Pulse Oximetry 98 97 98 Intake/Output Intake/Output: Intake & Output 05/08/25 05/09/25 05/10/25 05/11/25 23:59 23:59 23:59 23:59 Intake Total 7029.0 4450.0 1989 1630 Output Total 450 2650 1999 800 Balance 6579.0 1800.0 -10 830 Meds/Results Medications: Active Medications Generic Name Dose Route Start Last Admin Trade Name Freq PRN Reason Stop Dose Admin Acetaminophen 650 mg 05/08/25 10:21 05/10/25 21:44 Acetaminophen 325 Mg Tablet PO 650 mg Q6H PRN Administration Mild Pain (1-3) or Fever Apixaban 5 mg 05/08/25 21:00 05/11/25 09:15 Apixaban 5 Mg Tablet PO 5 mg Q12HR YUN Administration Ceftriaxone Sodium 2 gm in 100 mls @ 200 mls/hr 05/09/25 05:00 05/11/25 05:32 Rocephin 2 Gm/Ns 100 Ml IVPB 200 mls/hr Q24H YUN Administration Sodium Chloride 1,000 mls @ 75 mls/hr 05/08/25 06:15 05/11/25 02:01 Normal Saline Iv IV CONT 75 mls/hr .[id number] YUN Administration Levothyroxine Sodium 100 mcg 05/09/25 06:30 05/11/25 05:32 Levothyroxine Sodium 100 Mcg Tablet PO 100 mcg DAILY@0630 YUN Administration Ondansetron HCl 4 mg 05/08/25 06:13 Ondansetron Inj 4 Mg/2 Ml Vial IV PUSH Q4H PRN Nausea Sodium Chloride 10 ml 05/09/25 14:00 05/11/25 05:32 Central Line Flush IV PUSH 10 ml Q8HR YUN Administration Sodium Chloride 20 ml 05/09/25 06:58 Central Line Flush IV PUSH PRN PRN after blood draws Radiology Results: ITS Impressions Hip/Pelvis X-Ray 05/08/25 05:18 Impression: No acute abnormality. Stable severe degenerative change of the right hip joint with chronic remodeling of the right femoral head which is diminutive in overall appearance. Moderate to advanced degenerative change of the left hip joint, similar to prior exam. Pelvis CT 05/08/25 05:21 Impression: No acute fracture or dislocation seen. Severe degenerative changes of both hips, as detailed above, right worse than left. There is chronic remodeling and deformity of the right femoral head. 15 mm right renal pelvis stone with moderate to severe right hydronephrosis and findings compatible with ATN of the right kidney with patchy retained contrast enhancement of the right renal parenchyma. Shoulder X-Ray 05/08/25 05:24 Impression: Severe glenohumeral joint degenerative change. No acute fracture or dislocation seen. Abdomen/Pelvis CT 05/08/25 05:27 Impression: 16 mm right renal pelvis stone with moderate to severe right hydronephrosis. Patchy retained contrast enhancement of the right renal parenchyma with shotty right perinephric and aortocaval lymph nodes. Findings are consistent with ATN and possible superimposed pyelonephritis. Correlate clinically and with urinalysis. ADDENDUM: 05/08/25 0533 3.1 cm peripherally calcified left upper quadrant lesion is presumably arising from the left adrenal gland, indeterminate, though likely benign given the dense eggshell calcification. Abdomen X-Ray 05/08/25 05:31 Impression: Probable 16 mm stone projecting just the right of the L3-L4 disc space, which correlates with findings on prior CT. 3.1 cm peripherally calcified mass in left upper lobe which corresponds prior CT scan, possibly adrenal lesion. Chest X-Ray 05/08/25 06:53 Impression: Right IJ line in place. Clear lungs. Retrograde Pyelogram 05/08/25 08:03 IMPRESSION: 1. Right internal ureteral stent placement. Please refer to real-time procedural findings for details. Labs Labs: Laboratory Results - last 24 hr 05/11/25 05:38 WBC 13.1 H RBC 3.17 L Hgb 9.7 L Hct 30.6 L MCV 96.5 MCH 30.6 MCHC 31.7 L RDW 14.2 Plt Count 131 L MPV 10.3 Immature Gran % (Auto) 1.3 H Neut % (Auto) 82.0 H Lymph % (Auto) 11.0 L [place] % (Auto) 5.1 Eos % (Auto) 0.5 Baso % (Auto) 0.1 L Lymph # (Auto) 1.44 [place] # (Auto) 0.7 H Eos # (Auto) 0.1 Baso # (Auto) 0.0 Abs Immat Gran (auto) 0.17 H Absolute Neuts (auto) 10.7 H Absolute Nucleated RBC 0.000 Nucleated RBC % 0.0 Sodium 143 Potassium 3.4 Chloride 114 H Carbon Dioxide 21 L Anion Gap 8 BUN 40 H Creatinine 1.16 H Estim Creat Clear Calc 39 Estimated GFR 45 L Glucose 97 Calcium 8.6 Phosphorus 2.5 Magnesium 1.7 Quality VTE Prophylaxis VTE prophylaxis: pharmacologic ordered Hospitalist [facility] Advance Care Plan I have confirmed that the patient's Advanced Care Plan is present, code status is documented, or surrogate decision maker is listed in patient medical record.: Yes Medication Reconciliation I have utilized all available resources to obtain, update and review the patients current medications (includes all prescriptions, OTC, herbals, cannabis, and nutritional supplements).: Yes
--- NOTE | 2025-05-11 10:47 | WPDUROPN2 ---
Progress Note: A&P Assessment and Plan (1) Obstruction of right ureteropelvic junction (UPJ) due to stone: Code(s): N20.1 - Calculus of ureter Status: Acute (2) Septic shock: Code(s): A41.9 - Sepsis, unspecified organism; R65.21 - Severe sepsis with septic shock Status: Acute Plan Antibiotics per primary team Definitive stone management future. We will call to arrange Subjective Subjective Date/Time Seen: 05/11/25 10:47 Review of Systems Review of Systems: Out Of ICU and doing well. Blood and urine cultures both positive for E coli Exam Narrative: No acute distress Resting comfortably Objective Data Vital Signs Vital Signs: Vital Signs - 24 hr 05/10/25 14:45 05/10/25 21:02 05/11/25 05:25 Temperature 97.3 F L 97.7 F 97.8 F Pulse Rate 103 H 82 80 Respiratory Rate 22 H 20 20 Blood Pressure 129/70 135/89 114/80 Pulse Oximetry 98 97 98 Intake/Output Intake/Output: Intake & Output 05/08/25 05/09/25 05/10/25 05/11/25 23:59 23:59 23:59 23:59 Intake Total 7029.0 4450.0 1989 1630 Output Total 450 2650 2000 800 Balance 6579.0 1800.0 -10 830 Meds/Results Medications: Active Medications Generic Name Dose Route Start Last Admin Trade Name Freq PRN Reason Stop Dose Admin Acetaminophen 650 mg 05/08/25 10:21 05/10/25 21:44 Acetaminophen 325 Mg Tablet PO 650 mg Q6H PRN Administration Mild Pain (1-3) or Fever Amoxicillin/Clavulanate Potassium 1 tablet 05/11/25 21:00 Amoxicillin/Clavulanate K 875-125 Mg Tab PO 05/18/25 20:59 Q12HR YUN Apixaban 5 mg 05/08/25 21:00 05/11/25 09:15 Apixaban 5 Mg Tablet PO 5 mg Q12HR YUN Administration Sodium Chloride 1,000 mls @ 75 mls/hr 05/08/25 06:15 05/11/25 02:01 Normal Saline Iv IV CONT 75 mls/hr .[id number] YUN Administration Levothyroxine Sodium 100 mcg 05/09/25 06:30 05/11/25 05:32 Levothyroxine Sodium 100 Mcg Tablet PO 100 mcg DAILY@0630 YUN Administration Ondansetron HCl 4 mg 05/08/25 06:13 Ondansetron Inj 4 Mg/2 Ml Vial IV PUSH Q4H PRN Nausea Sodium Chloride 10 ml 05/09/25 14:00 05/11/25 05:32 Central Line Flush IV PUSH 10 ml Q8HR YUN Administration Sodium Chloride 20 ml 05/09/25 06:58 Central Line Flush IV PUSH PRN PRN after blood draws Radiology Results: ITS Impressions Hip/Pelvis X-Ray 05/08/25 05:18 Impression: No acute abnormality. Stable severe degenerative change of the right hip joint with chronic remodeling of the right femoral head which is diminutive in overall appearance. Moderate to advanced degenerative change of the left hip joint, similar to prior exam. Pelvis CT 05/08/25 05:21 Impression: No acute fracture or dislocation seen. Severe degenerative changes of both hips, as detailed above, right worse than left. There is chronic remodeling and deformity of the right femoral head. 15 mm right renal pelvis stone with moderate to severe right hydronephrosis and findings compatible with ATN of the right kidney with patchy retained contrast enhancement of the right renal parenchyma. Shoulder X-Ray 05/08/25 05:24 Impression: Severe glenohumeral joint degenerative change. No acute fracture or dislocation seen. Abdomen/Pelvis CT 05/08/25 05:27 Impression: 16 mm right renal pelvis stone with moderate to severe right hydronephrosis. Patchy retained contrast enhancement of the right renal parenchyma with shotty right perinephric and aortocaval lymph nodes. Findings are consistent with ATN and possible superimposed pyelonephritis. Correlate clinically and with urinalysis. ADDENDUM: 05/08/25 0533 3.1 cm peripherally calcified left upper quadrant lesion is presumably arising from the left adrenal gland, indeterminate, though likely benign given the dense eggshell calcification. Abdomen X-Ray 05/08/25 05:31 Impression: Probable 16 mm stone projecting just the right of the L3-L4 disc space, which correlates with findings on prior CT. 3.1 cm peripherally calcified mass in left upper lobe which corresponds prior CT scan, possibly adrenal lesion. Chest X-Ray 05/08/25 06:53 Impression: Right IJ line in place. Clear lungs. Retrograde Pyelogram 05/08/25 08:03 IMPRESSION: 1. Right internal ureteral stent placement. Please refer to real-time procedural findings for details. Labs Labs: Laboratory Results - last 24 hr 05/11/25 05:38 WBC 13.1 H RBC 3.17 L Hgb 9.7 L Hct 30.6 L MCV 96.5 MCH 30.6 MCHC 31.7 L RDW 14.2 Plt Count 131 L MPV 10.3 Immature Gran % (Auto) 1.3 H Neut % (Auto) 82.0 H Lymph % (Auto) 11.0 L [place] % (Auto) 5.1 Eos % (Auto) 0.5 Baso % (Auto) 0.1 L Lymph # (Auto) 1.44 [place] # (Auto) 0.7 H Eos # (Auto) 0.1 Baso # (Auto) 0.0 Abs Immat Gran (auto) 0.17 H Absolute Neuts (auto) 10.7 H Absolute Nucleated RBC 0.000 Nucleated RBC % 0.0 Sodium 143 Potassium 3.4 Chloride 114 H Carbon Dioxide 21 L Anion Gap 8 BUN 40 H Creatinine 1.16 H Estim Creat Clear Calc 39 Estimated GFR 45 L Glucose 97 Calcium 8.6 Phosphorus 2.5 Magnesium 1.7
[2025-05-11 16:00] VITALS: BP 139/61; PULSE 69; RESP 19; TEMP 36.6; O2SAT 100
[2025-05-11] MEDS: DOCUSATE SODIUM 100 MG CAPSULE PO (21:33)
[2025-05-11] MEDS: ACETAMINOPHEN 325 MG TABLET 650 MG PO (21:33)
[2025-05-11 21:35] VITALS: BP 147/88; PULSE 71; RESP 20; TEMP 36.1; O2SAT 98
[2025-05-12] VITALS (8 sets, daily range): BP systolic 127–151; BP diastolic 64–92; PULSE 67–106; RESP 18–19; TEMP 36.4–36.6; O2SAT 97–100
[2025-05-12] MEDS: SODIUM CHLORIDE 0.9% IV 1,000 ML 75 ML IV CONT ×2 (02:24→17:16)
[2025-05-12] MEDS: CENTRAL LINE FLUSH 20 ML IV PUSH (05:19)
[2025-05-12] MEDS: CENTRAL LINE FLUSH 10 ML IV PUSH ×3 (05:19→21:44)
[2025-05-12] MEDS: LEVOTHYROXINE SODIUM 100 MCG TABLET PO (05:19)
[2025-05-12] MEDS: AMOXICILLIN/CLAVULANATE K 875-125 MG TAB 1 TABLET PO ×3 (05:19→21:42)
[2025-05-12 05:46] LABS: Hematocrit 30.6 % (37.0-47.0); Hemoglobin 9.8 g/dL (12.0-15.0); Mean Corpuscular Hemoglobin 30.7 pg (26-34); Mean Corpuscular Volume 95.9 fl (80-100); Mean Platelet Volume 10.1 fl (7.4-10.4); Platelet Count Result 133 k/mm3 (150-375); Red Blood Count 3.19 M/mm3 (4.2-5.4); Red Cell Distribution Width 14.1 % (11.5-14.5); White Blood Count 10.5 K/mm3 (4.5-10.0)
[2025-05-12 05:56] LABS: Alanine Aminotransferase 26 U/L (6-35); Albumin Level 2.7 g/dL (3.5-5.1); Alkaline Phosphatase 65 U/L (38-126); Anion Gap 4 mmol/L (4-12); Aspartate Amino Transferase 45 U/L (14-36); Bilirubin,Total 0.5 mg/dL (0.2-1.3); Blood Urea Nitrogen 28 mg/dL (7-17); Calcium 8.5 mg/dL (8.4-10.2); Carbon Dioxide 24 mmol/L (22-30); Chloride 112 mmol/L (98-107); Estimated CRCL calculation 47 ml/min; Estimated Glomerular Filt Rate 55; Glucose 89 mg/dL (65-110); Potassium 3.3 mmol/L (3.4-5.0); Sodium 140 mmol/L (137-145); Total Protein 5.4 g/dL (6.3-8.2)
[2025-05-12] MEDS: DOCUSATE SODIUM 100 MG CAPSULE PO ×2 (08:39→21:43)
[2025-05-12] MEDS: APIXABAN 5 MG TABLET PO ×2 (08:39→21:42)
--- NOTE | 2025-05-12 11:31 | PM.IMPN ---
Progress Note: A&P Assessment and Plan (1) Septic shock: Code(s): A41.9 - Sepsis, unspecified organism; R65.21 - Severe sepsis with septic shock Status: Acute Assessment and Plan: Patient presented with a fall, found to be hypotensive with right ureteral stone causing moderate to severe hydronephrosis -received 4-5 L of IV fluids in all this admission despite which she remained hypotensive, right IJ central line was placed in the ER and started on Levophed -05/08: patient status post cystoscopy, right retrograde pyelogram, right ureteral stent placement -off all pressors,, Maintain MAP > 65 mmHg due for adequate end organ perfusion -patient with acute kidney injury, adequately fluid-resuscitated -continue to monitor urine output and renal function along with electrolytes -05/09: lactic acid this morning is 0.9 -05/08: Blood cultures growing E coli -sensitive to ceftriaxone -05/08: Urine cultures growing E coli -wean stress dose steroids -status post ceftriaxone -reviewed urine culture and started Augmentin until 0 05/22 -WBC count trending down (2) Pyelonephritis: Code(s): N12 - Tubulo-interstitial nephritis, not specified as acute or chronic Status: Acute Assessment and Plan: Pyelonephritis likely related to right ureteral stone and hydronephrosis, status post right ureteral stent as above -continue antibiotics (3) Obstruction of right ureteropelvic junction (UPJ) due to stone: Code(s): N20.1 - Calculus of ureter Status: Acute Assessment and Plan: Patient will be seeing Urology for definitive treatment of the stone (4) Acute kidney injury: Code(s): N17.9 - Acute kidney failure, unspecified Status: Acute Assessment and Plan: Acute kidney injury likely related to septic shock, hypotension, hypovolemia, ATN, pyelonephritis -adequately fluid-resuscitated -continue vasopressor -lactic acid 2.4 on admission, repeat lactic acid 0.9 this morning -good urine output, creatinine down to 1.39 (2.76 on admission) -monitor urine output, renal function and electrolytes (5) Hypothyroidism, unspecified: Qualifiers: Hypothyroidism type: unspecified Qualified Code(s): E03.9 - Hypothyroidism, unspecified Code(s): E03.9 - Hypothyroidism, unspecified Status: Acute Assessment and Plan: Continue Levothyroid (6) Atrial fibrillation: Code(s): I48.91 - Unspecified atrial fibrillation Status: Acute Assessment and Plan: Remains in AFib, rate controlled, continue Eliquis which is a home medication -continue to hold metoprolol as blood pressures are borderline patient just came off pressors (7) Dizziness: Code(s): R42 - Dizziness and giddiness Status: Acute Assessment and Plan: Started Meclizine No evidence of hypoglycemia Order ortho hypotension Possible due to recent infection Plan DVT prophylaxis: Eliquis Stress ulcer prophylaxis: Not indicated Nutrition: Tolerating heart healthy diet Code Status: Full code Subjective Date/time seen: 05/12/25 11:31 Interval history: Patient is very concerned about lightheadedness as she lives alone at home and doesn't want to get discharged. Will start on meclizine and order ortho static vital. If necessary will order CT head. Review of Systems Review of Systems: All systems reviewed & are unremarkable except as noted in HPI and below Exam Narrative: General: Pleasant female, in no acute distress at this time HEENT:? Pupils equal and reactive, sclera is clear, moist oral mucosa Neck:? Supple Respiratory:? Clear to auscultation bilaterally, no wheezing, adequate air entry will Cardiac:? Regular rate and rhythm, S1-S2 is normal Abdomen:? Soft, nontender, nondistended, normoactive bowel sound Extremities:? No edema, palpable pedal pulses Neuro:? Patient is awake, alert, oriented x3, nonfocal, answers to questions appropriately and follows simple commands in all extremities Skin:? No lesions noted Psych:? Normal mentation and affect Objective Data Vital Signs Vital Signs: Vital Signs - 24 hr 05/11/25 16:00 05/11/25 21:35 05/12/25 05:20 Temperature 97.9 F 96.9 F L 97.5 F L Pulse Rate 69 71 67 Respiratory Rate 19 20 18 Blood Pressure 139/61 147/88 H 144/83 H Pulse Oximetry 100 98 97 Oxygen Delivery 05/12/25 08:00 05/12/25 08:40 Temperature 97.6 F Pulse Rate 68 Respiratory Rate 18 Blood Pressure 140/78 Pulse Oximetry 97 Oxygen Delivery Room Air Intake/Output Intake/Output: Intake & Output 05/09/25 05/10/25 05/11/25 05/12/25 23:59 23:59 23:59 23:59 Intake Total 4450.0 1989 3411.3 1317.5 Output Total 2650 1999 2500 1700 Balance 1800.0 -10 911.3 -382.5 Meds/Results Medications: Active Medications Generic Name Dose Route Start Last Admin Trade Name Freq PRN Reason Stop Dose Admin Acetaminophen 650 mg 05/08/25 10:21 05/11/25 21:33 Acetaminophen 325 Mg Tablet PO 650 mg Q6H PRN Administration Mild Pain (1-3) or Fever Amoxicillin/Clavulanate Potassium 1 tablet 05/12/25 06:00 05/12/25 05:19 Amoxicillin/Clavulanate K 875-125 Mg Tab PO 05/22/25 22:01 1 tablet Q8HR YUN Administration Apixaban 5 mg 05/08/25 21:00 05/12/25 08:39 Apixaban 5 Mg Tablet PO 5 mg Q12HR YUN Administration Docusate Sodium 100 mg 05/11/25 21:00 05/12/25 08:39 Docusate Sodium 100 Mg Capsule PO 100 mg Q12HR YUN Administration Sodium Chloride 1,000 mls @ 75 mls/hr 05/08/25 06:15 05/12/25 02:24 Normal Saline Iv IV CONT 75 mls/hr .[id number] YUN Administration Levothyroxine Sodium 100 mcg 05/09/25 06:30 05/12/25 05:19 Levothyroxine Sodium 100 Mcg Tablet PO 100 mcg DAILY@0630 YUN Administration Meclizine HCl 12.5 mg 05/12/25 10:32 Meclizine Hcl 12.5 Mg Tablet PO QID PRN dizziness Ondansetron HCl 4 mg 05/08/25 06:13 Ondansetron Inj 4 Mg/2 Ml Vial IV PUSH Q4H PRN Nausea Sodium Chloride 10 ml 05/09/25 14:00 05/12/25 05:19 Central Line Flush IV PUSH 10 ml Q8HR YUN Administration Sodium Chloride 20 ml 05/09/25 06:58 05/12/25 05:19 Central Line Flush IV PUSH 20 ml PRN PRN Administration after blood draws Radiology Results: ITS Impressions Hip/Pelvis X-Ray 05/08/25 05:18 Impression: No acute abnormality. Stable severe degenerative change of the right hip joint with chronic remodeling of the right femoral head which is diminutive in overall appearance. Moderate to advanced degenerative change of the left hip joint, similar to prior exam. Pelvis CT 05/08/25 05:21 Impression: No acute fracture or dislocation seen. Severe degenerative changes of both hips, as detailed above, right worse than left. There is chronic remodeling and deformity of the right femoral head. 15 mm right renal pelvis stone with moderate to severe right hydronephrosis and findings compatible with ATN of the right kidney with patchy retained contrast enhancement of the right renal parenchyma. Shoulder X-Ray 05/08/25 05:24 Impression: Severe glenohumeral joint degenerative change. No acute fracture or dislocation seen. Abdomen/Pelvis CT 05/08/25 05:27 Impression: 16 mm right renal pelvis stone with moderate to severe right hydronephrosis. Patchy retained contrast enhancement of the right renal parenchyma with shotty right perinephric and aortocaval lymph nodes. Findings are consistent with ATN and possible superimposed pyelonephritis. Correlate clinically and with urinalysis. ADDENDUM: 05/08/25 0533 3.1 cm peripherally calcified left upper quadrant lesion is presumably arising from the left adrenal gland, indeterminate, though likely benign given the dense eggshell calcification. Abdomen X-Ray 05/08/25 05:31 Impression: Probable 16 mm stone projecting just the right of the L3-L4 disc space, which correlates with findings on prior CT. 3.1 cm peripherally calcified mass in left upper lobe which corresponds prior CT scan, possibly adrenal lesion. Chest X-Ray 05/08/25 06:53 Impression: Right IJ line in place. Clear lungs. Retrograde Pyelogram 05/08/25 08:03 IMPRESSION: 1. Right internal ureteral stent placement. Please refer to real-time procedural findings for details. Labs Labs: Laboratory Results - last 24 hr 05/12/25 05:17 WBC 10.5 H RBC 3.19 L Hgb 9.8 L Hct 30.6 L MCV 95.9 MCH 30.7 MCHC 32.0 RDW 14.1 Plt Count 133 L MPV 10.1 Sodium 140 Potassium 3.3 L Chloride 112 H Carbon Dioxide 24 Anion Gap 4 BUN 28 H D Creatinine 0.98 Estim Creat Clear Calc 47 Estimated GFR 55 L Glucose 89 Calcium 8.5 Total Bilirubin 0.5 AST 45 H ALT 26 Alkaline Phosphatase 65 Total Protein 5.4 L Albumin 2.7 L Quality VTE Prophylaxis VTE prophylaxis: pharmacologic ordered Hospitalist [facility] Advance Care Plan I have confirmed that the patient's Advanced Care Plan is present, code status is documented, or surrogate decision maker is listed in patient medical record.: Yes Medication Reconciliation I have utilized all available resources to obtain, update and review the patients current medications (includes all prescriptions, OTC, herbals, cannabis, and nutritional supplements).: Yes
--- NOTE | 2025-05-12 13:01 | P.CDI_ITS ---
CDI Query Clarification Request Patient with a BMI of 45.4 please provide a diagnosis to accompany this finding: * Overweight * Obesity * Morbid Obesity * Other/Unknown <Niki Peacock RN - Last Filed: 05/12/25 13:01> Clarified Diagnosis Clarified Diagnosis: Morbid Obesity <Ramin Lorenzo MD - Last Filed: 05/12/25 13:49>
[2025-05-12] MEDS: MECLIZINE HCL 12.5 MG TABLET PO (13:47)
[2025-05-12] MEDS: ACETAMINOPHEN 325 MG TABLET 650 MG PO (21:42)
[2025-05-12] MEDS: GABAPENTIN 300 MG CAPSULE 900 MG PO (21:43)
[2025-05-13] MEDS: LEVOTHYROXINE SODIUM 100 MCG TABLET PO (05:06)
[2025-05-13] MEDS: SODIUM CHLORIDE 0.9% IV 1,000 ML 75 ML IV CONT (05:06)
[2025-05-13] MEDS: CENTRAL LINE FLUSH 10 ML IV PUSH (05:06)
[2025-05-13] MEDS: AMOXICILLIN/CLAVULANATE K 875-125 MG TAB 1 TABLET PO ×2 (05:06→14:02)
[2025-05-13 05:18] VITALS: BP 143/72; PULSE 70; RESP 20; TEMP 36.5; O2SAT 96
[2025-05-13 05:20] LABS: Hemoglobin 10.3 g/dL (12.0-15.0); Mean Corpuscular HGB Conc 32.2 g/dl (32-36); Mean Corpuscular Hemoglobin 30.8 pg (26-34); Mean Corpuscular Volume 95.8 fl (80-100); Mean Platelet Volume 9.5 fl (7.4-10.4); Platelet Count Result 144 k/mm3 (150-375); Red Blood Count 3.34 M/mm3 (4.2-5.4); Red Cell Distribution Width 13.8 % (11.5-14.5); White Blood Count 13.8 K/mm3 (4.5-10.0)
[2025-05-13 05:38] LABS: Alanine Aminotransferase 28 U/L (6-35); Albumin Level 2.9 g/dL (3.5-5.1); Alkaline Phosphatase 68 U/L (38-126); Anion Gap 3 mmol/L (4-12); Aspartate Amino Transferase 42 U/L (14-36); Bilirubin,Total 0.6 mg/dL (0.2-1.3); Blood Urea Nitrogen 20 mg/dL (7-17); Calcium 8.4 mg/dL (8.4-10.2); Carbon Dioxide 28 mmol/L (22-30); Chloride 108 mmol/L (98-107); Estimated CRCL calculation 49 ml/min; Estimated Glomerular Filt Rate 58; Glucose 88 mg/dL (65-110); Magnesium 1.4 mg/dL (1.6-2.3); Potassium 3.3 mmol/L (3.4-5.0); Sodium 139 mmol/L (137-145); Total Protein 5.4 g/dL (6.3-8.2)
--- NOTE | 2025-05-13 07:22 | P.DS_ITS ---
DS: Admitting Diagnosis Discharge Date 05/13/2025 Admitting Diagnosis Septic shock due to UTI DS: Discharge Diagnosis Discharge Diagnosis (1) Septic shock: Code(s): A41.9 - Sepsis, unspecified organism; R65.21 - Severe sepsis with septic shock Status: Acute Assessment and Plan: Please refer to hospital course for brief summary Patient presented with a fall, found to be hypotensive with right ureteral stone causing moderate to severe hydronephrosis -received 4-5 L of IV fluids in all this admission despite which she remained hypotensive, right IJ central line was placed in the ER and started on Levophed -05/08: patient status post cystoscopy, right retrograde pyelogram, right ureteral stent placement -off all pressors,, Maintain MAP > 65 mmHg due for adequate end organ perfusion -patient with acute kidney injury, adequately fluid-resuscitated -continue to monitor urine output and renal function along with electrolytes -05/09: lactic acid this morning is 0.9 -05/08: Blood cultures growing E coli -sensitive to ceftriaxone -05/08: Urine cultures growing E coli -wean stress dose steroids -status post ceftriaxone -reviewed urine culture and started Augmentin until 0 05/22 -WBC count trending down (2) Pyelonephritis: Code(s): N12 - Tubulo-interstitial nephritis, not specified as acute or chronic Status: Acute Assessment and Plan: Pyelonephritis likely related to right ureteral stone and hydronephrosis, status post right ureteral stent as above -continue antibiotics (3) Obstruction of right ureteropelvic junction (UPJ) due to stone: Code(s): N20.1 - Calculus of ureter Status: Acute Assessment and Plan: Patient will be seeing Urology for definitive treatment of the stone (4) Acute kidney injury: Code(s): N17.9 - Acute kidney failure, unspecified Status: Acute Assessment and Plan: Acute kidney injury likely related to septic shock, hypotension, hypovolemia, ATN, pyelonephritis -adequately fluid-resuscitated -continue vasopressor -lactic acid 2.4 on admission, repeat lactic acid 0.9 this morning -good urine output, creatinine down to 1.39 (2.76 on admission) -monitor urine output, renal function and electrolytes (5) Hypothyroidism, unspecified: Qualifiers: Hypothyroidism type: unspecified Qualified Code(s): E03.9 - Hypothyroidism, unspecified Code(s): E03.9 - Hypothyroidism, unspecified Status: Acute Assessment and Plan: Continue Levothyroid (6) Atrial fibrillation: Code(s): I48.91 - Unspecified atrial fibrillation Status: Acute Assessment and Plan: Remains in AFib, rate controlled, continue Eliquis which is a home medication -continue to hold metoprolol as blood pressures are borderline patient just came off pressors (7) Dizziness: Code(s): R42 - Dizziness and giddiness Status: Acute Assessment and Plan: Started Meclizine No evidence of hypoglycemia Order ortho hypotension Possible due to recent infection CT head negative DS: Summary Hospital Course Hospital Course: Emani Simms is a 79 year old female past medical history of chronic kidney disease stage 3, essential hypertension, gout, hypothyroidism, osteoarthritis of right hip, atrial fibrillation on Eliquis, who fell in the bathroom on 05/07/2025 around 2:00 p.m according the patient, she pressed her Life Alert and knee came and helped her up and told that if she has more pain go to the ER. Later in the evening she did have more right hip pain and right shoulder pain for which she came to the ER at [facility]. In the ER patient was noted be hypotensive, received 30 mL/kg IV fluid bolus. WBC count 20.0, hemoglobin 11.0, platelets 166. Sodium 138, potassium 4.3, CO2 23, BUN 45, creatinine 2.76, lactic acid 2.4, repeat lactic 1.3 after IV fluids, LFTs are within normal limits. TSH was 2.180. UA was reflective of UTI 05/08: Pelvic CT did not show any acute fracture dislocation. Severe degenerative changes of both hips. 15 mm right pelvis stone with moderate to severe right hydronephrosis 05/08: Right shoulder x-ray did not show any acute fracture or dislocation, severe glenohumeral joint degenerative changes 05/08: CT scan of the abdomen and pelvis showed 16 mm right renal pelvis stone with moderate to severe right hydronephrosis. 3.1 cm peripherally calcified left upper quadrant lesion is presumably arising from the left adrenal gland, indeterminate, though likely benign a dense eggshell calcification. Patient was taken to the OR which she had cystoscopy, right retrograde pyelogram and right ureteral stent placement by Urology. Patient and remained hypotensive in the ER, right IJ line was inserted and patient started on Levophed. Postprocedure patient transferred to the ICU for further management s Patient seen and examined the ICU upon arrival, patient is awake, alert, oriented x3, remains on Levophed. Also on maintenance IV fluids. Currently denies any chest pain, abdominal pain, nausea, vomiting, right shoulder, right hip pain. Patient was febrile with a T-max of 101.6? this morning. Patient underwent Cystoscopy, right retrograde pyelogram, right ureteral stent placed on 05/08/2025. As per urology:Antibiotics per primary team Definitive stone management future. We will call to arrange. Urine culture shows E coli and patient will be continued Augmentin until 0 05/22/2025 Patient was complaining about dizziness. Possibly due to recovery from the infection. No evidence of orthostatic hypotension and CT head negative and no evidence of hypoglycemia as well. Will give hand out BPPV Mitzy maneuver. Advised to hydrate well. On the day of discharge, the patient was seen and examined. Vital signs were stable. Physical exam were stable and labs were reviewed at length. Discharge instructions, medications, and follow-up appointments were discussed with the patient at length and all day questions were answered. ER warnings were given. Patient needs to follow-up with the Urology for Sams management. Status at Discharge Cognitive/behavioral status at discharge: Stable Time Spent with Patient Time attestation: Total time spent providing and/or coordinating discharge services: 45 minutes Exam Narrative: General: Pleasant female, in no acute distress at this time HEENT:? Pupils equal and reactive, sclera is clear, moist oral mucosa Neck:? Supple Respiratory:? Clear to auscultation bilaterally, no wheezing, adequate air entry will Cardiac:? Regular rate and rhythm, S1-S2 is normal Abdomen:? Soft, nontender, nondistended, normoactive bowel sound Extremities:? No edema, palpable pedal pulses Neuro:? Patient is awake, alert, oriented x3, nonfocal, answers to questions appropriately and follows simple commands in all extremities Skin:? No lesions noted Psych:? Normal mentation and affect DS: Data Data Completed and Pending Labs on day of discharge: Labs from last 24 hours 05/13/25 05:14 WBC 13.8 H RBC 3.34 L Hgb 10.3 L Hct 32.0 L MCV 95.8 MCH 30.8 MCHC 32.2 RDW 13.8 Plt Count 144 L MPV 9.5 Sodium 139 Potassium 3.3 L Chloride 108 H Carbon Dioxide 28 Anion Gap 3 L BUN 20 H Creatinine 0.93 Estim Creat Clear Calc 49 Estimated GFR 58 L Glucose 88 Calcium 8.4 Magnesium 1.4 L Total Bilirubin 0.6 AST 42 H ALT 28 Alkaline Phosphatase 68 Total Protein 5.4 L Albumin 2.9 L Additional Comments Additional comments: ITS Impressions Hip/Pelvis X-Ray 05/08/25 05:18 Impression: No acute abnormality. Stable severe degenerative change of the right hip joint with chronic remodeling of the right femoral head which is diminutive in overall appearance. Moderate to advanced degenerative change of the left hip joint, similar to prior exam. Pelvis CT 05/08/25 05:21 Impression: No acute fracture or dislocation seen. Severe degenerative changes of both hips, as detailed above, right worse than left. There is chronic remodeling and deformity of the right femoral head. 15 mm right renal pelvis stone with moderate to severe right hydronephrosis and findings compatible with ATN of the right kidney with patchy retained contrast enhancement of the right renal parenchyma. Shoulder X-Ray 05/08/25 05:24 Impression: Severe glenohumeral joint degenerative change. No acute fracture or dislocation seen. Chest X-Ray 05/08/25 05:25 Impression: Clear lungs. Abdomen/Pelvis CT 05/08/25 05:27 Impression: 16 mm right renal pelvis stone with moderate to severe right hydronephrosis. Patchy retained contrast enhancement of the right renal parenchyma with shotty right perinephric and aortocaval lymph nodes. Findings are consistent with ATN and possible superimposed pyelonephritis. Correlate clinically and with urinalysis. ADDENDUM: 05/08/25 0533 3.1 cm peripherally calcified left upper quadrant lesion is presumably arising from the left adrenal gland, indeterminate, though likely benign given the dense eggshell calcification. Abdomen X-Ray 05/08/25 05:31 Impression: Probable 16 mm stone projecting just the right of the L3-L4 disc space, which correlates with findings on prior CT. 3.1 cm peripherally calcified mass in left upper lobe which corresponds prior CT scan, possibly adrenal lesion. Chest X-Ray 05/08/25 06:53 Impression: Right IJ line in place. Clear lungs. Retrograde Pyelogram 05/08/25 08:03 IMPRESSION: 1. Right internal ureteral stent placement. Please refer to real-time procedural findings for details. Head CT 05/12/25 23:18 Impression: No acute intracranial hemorrhage or suspicious mass effect. Discharge Plan Discharge Attending physician on discharge: Ramin Lorenzo Consulting providers: Yaya Bishop; Ramone Madsen Discharging Clinician: Ramin Lorenzo Anticipated Discharge Date/Time: 05/13/25 07:29 Patient Disposition: Home with Home Health Service Activity: as tolerated Diet: heart healthy Discharge Instructions: Per Care Coordination. Patient to have [facility] for RN/PT/OT eval and treat [phone]. They will contact patient to schedule first visit. Given printout Mitzy maneuver. Complete the antibiotic until 05/22/2025 Please follow-up closely with Urology. Patient needs to follow-up with the Urology for Sams management. Check blood pressure 1 to 2 times a day. Record and bring into your doctor for review. Call your doctor if your blood pressure is greater than 180/110 or less than 90/45. Walk with cane or other assist device. Take precautions to avoid falls. Rise slowly from a lying or sitting position. Pause before standing or walking. Contact your doctor or call 911 and come to the Emergency Room if you have any type of trauma, lightheadedness with standing or other worrisome symptoms. Avoid NSAIDs (ibuprofen, naproxen, Aleve). Tylenol is safe to take. Follow-up with your primary care provider in 1-2 weeks. Please call for appointment. Follow-up with Cardiology in 2-4 weeks. Please call for an appointment. Thank you for using [facility] for your health care needs. Patient Instructions: Antibiotic Form, Apixaban (By mouth) Patient Language: Dutch Stand Alone Forms: General Discharge Information Follow-up/Referrals: Fabienne Beasley MD [Primary Care Provider] - Yaya Bishop MD [Physician] - Call for Appointment Discharge Medications: New docusate sodium 100 mg Capsule 100 mg PO Q12HR Qty: 15 0RF meclizine 12.5 mg Tablet 12.5 mg PO QID PRN (Reason: dizziness) Qty: 15 0RF amoxicillin-pot clavulanate 875-125 mg tablet 1 tablet PO Q12H Qty: 20 0RF Rx Instructions: Please complete the course on 05/22/2025 Continued cholecalciferol (vitamin D3) 25 mcg (1,000 unit) capsule 25 mcg PO DAILY Qty: 30 0RF Adults Multivitamin 18 mg iron-400 mcg-25 mcg Tablet 1 tablet PO DAILY allopurinol 100 mg tablet 100 mg PO DAILY Qty: 90 3RF losartan 50 mg tablet 50 mg PO DAILY Qty: 90 1RF gabapentin 300 mg capsule 300 mg PO .COMPLEX Qty: 120 5RF Rx Instructions: 300 mg PO am and 3(900mg) hs; levothyroxine 100 mcg tablet 100 mcg PO DAILY Qty: 90 3RF Rx Instructions: No dose on Sunday. Eliquis 5 mg tablet 5 mg PO BID Qty: 60 0RF metoprolol succinate 25 mg tablet extended release 24 hr 25 mg PO DAILY Qty: 30 5RF Date of admission: 05/08/25 09:42 Primary Care Provider: Fabienne Beasley Admitting Provider: Ramone Madsen Attending physician on admission: Yaya Bishop Condition: Stable
[2025-05-13 08:00] VITALS: BP 140/70; PULSE 68; RESP 19; TEMP 36.5; O2SAT 96
[2025-05-13] MEDS: MECLIZINE HCL 12.5 MG TABLET PO (08:45)
[2025-05-13 08:46] VITALS: PULSE 70
[2025-05-13] MEDS: MULTIVITAMINS /C LUTEIN (CENTRUM SILVER) TABLET *BKC 1 TAB PO (08:46)
[2025-05-13] MEDS: APIXABAN 5 MG TABLET PO (08:46)
[2025-05-13] MEDS: METOPROLOL SUCCINATE EXT REL 25 MG TABCR PO (08:46)
[2025-05-13] MEDS: POTASSIUM CHLORIDE 20 MEQ ER TABLET 40 MEQ PO (08:46)
[2025-05-13] MEDS: LOSARTAN POTASSIUM 50 MG TABLET PO (08:46)
[2025-05-13] MEDS: GABAPENTIN 300 MG CAPSULE PO (08:46)
[2025-05-13] MEDS: DOCUSATE SODIUM 100 MG CAPSULE PO (08:46)
[2025-05-13] MEDS: KCL 20 MEQ/SW 100 ML 100 ML 50 MEQ IVPB (08:47)
[2025-05-13] MEDS: MAGNESIUM SULFATE 3GM/D5W100ML 3 GM/100 ML BAG IVPB (08:47)
[2025-05-13 14:43] LABS: Magnesium 2.2 mg/dL (1.6-2.3); Potassium 4.1 mmol/L (3.4-5.0)
== END 2025-05-13 16:24 | disposition home health service (06) | DRG 853 ==
LOC: ANHED 05-08 06:23 → ANHSURGERY 05-08 07:01 → ANHICU 05-08 08:15 → ANH2MED 05-11 07:47 → ANHICU 05-14 12:57
PROVIDERS: Emergency Medicine; Internal Medicine; Urology; Admitting Provider Internal Medicine; Emergency Provider Registered Nurse; PCP Family Medicine; Visit Provider General Practice
PROC: 0T768DZ Dilation of Right Ureter with Intraluminal Device, Via Natural or Artificial Opening Endoscopic (ICD-10-PCS; CPT 52352; principal; 2025-05-08 07:00)
DX: A41.51 Sepsis due to Escherichia coli [E. coli] (principal); N17.0 Acute kidney failure with tubular necrosis; R65.21 Severe sepsis with septic shock; N13.6 Pyonephrosis; Z68.42 Body mass index [BMI] 45.0-49.9, adult; E03.9 Hypothyroidism, unspecified; I48.91 Unspecified atrial fibrillation; R42 Dizziness and giddiness; I12.9 Hypertensive chronic kidney disease with stage 1 through stage 4 chronic kidney disease, or unspecified chronic kidney disease; N18.30 Chronic kidney disease, stage 3 unspecified; E86.0 Dehydration; M16.11 Unilateral primary osteoarthritis, right hip; E66.01 Morbid (severe) obesity due to excess calories; M48.061 Spinal stenosis, lumbar region without neurogenic claudication; M54.16 Radiculopathy, lumbar region; Z79.01 Long term (current) use of anticoagulants
CPT/HCPCS: 36415; 36556; 70450; 71045; 72192; 73030; 73521; 74018; 74176; 74420; 80048; 80053; 81001; 82550; 83605; 83735; 84100; 84132; 85025; 85027; 87040; 87086; 87186; 87641; 93005; 96361; 96365; 96375; 97110; 97161; 97165; 97530; 97535; 99291; A9270; C1751; C1758; C1769; C2617; G0378; J0696; J1720; J2003; J2270; J3475; J3480; J7030

== ENCOUNTER 2025-06-08 12:31 | Outpatient (CLI) | payer MEDICARE, BC, SELFPAY ==
--- OUTSIDE RECORDS SUMMARY | 2025-06-08 12:40 | XMS_ITS | Continuity of Care Document ---
Author Organization [facility] Address [address] [facility] [address] [place] [address] Phone Care Team Providers Care Salesperson [employer]ational [employer] Name Role Phone Yonathan Vick MD, MD [...] tablet - Active Procedures Procedure Date Office/outpatient visit,[facility] BMI Documented Above Normal Limit F/U Pl an Doc Office/outpatient visit,[facility] 2023 Advance Directives Directive Yes / No Effective Date File Name No Information Encounters Encounter Description Practice Location Reason(s) For Visit Diagnoses Date Provider Providers Copied on Encounter [facility], [address], [id number], [place] tel:[phone] [facility] No Information 4 Nava miramontes. [address] [facility] [place] [address], [place], [place], [id number] , [place]. tel:[phone] Office/outpat ient visit,[facility], [address], [id number], [place] tel:[phone] [facility] right hip (chief complaint) Unilateral primary osteoarthritis , right hip 4 Nava miramontes. [address] [facility], [place], [place], [id number] , [place]. tel: [phone] Referring Provider: Yonathan Morse, [address] [facility] [address] [facility], [place], [address]. tel:[phone] Office/outpat ient visit,[facility], [address] [facility], [place], [id number], tel:[phone] [facility] Right hip (chief complaint) Pain in right hipIdiopathic aseptic necrosis of right femur 4 Elijah Mena. [address] [facility], [address] [place] [address], [place], [place], [id number] , . tel: [phone] Referring Provider: Rajesh Lewis, [address], [place], [address]. tel:[phone] Family History Family Member Type Diagnosis Age [...] Unspecified Payers Payer name Insurance type Covered republican ID Authoriza tion(s) [place] Part B ANA [id number] Kathe La Follette Albaro morse [facility] [id number] Social History Type Description Quantity Date Captured [...] n, with posterior approach and location at [facility] were reviewed in depth, as was the [...] on Dr. Yonathan Vick surgical schedule at [facility], as well as scheduled for an intraoffice presurgical evaluation. Prescription for Tylenol No. 4 with codeine will be sent to her pharmacy as she is intolerant of tramadol. She was advised that this is a one-time prescription to be filled to get her to surgery, and she will continue the use of diclofenac and gabapentin as needed. She will add [id number] NSAIDs and analgesics, being advised not to consume more than 4000 mg of acetaminophen per day. She may initiate the use of topical products such as Voltaren gel or lidocaine patch. All questions were answered and concerns addressed.Dictation completed with Posterbee software, grammatical variances and spelling errors may inadvertently occur. Related to Idiopathic aseptic necrosis of right femur Assessments Type Assessment Date No Information Patient Care Teams Name Effective Dates (start - stop) Status Members No Information
--- OUTSIDE RECORDS SUMMARY | 2025-06-08 12:40 | XMS_ITS | Encounter Summary ---
Author Organization [facility] Healthcare Address [address] [place] [address] Care Team Providers Care Entry Level Finance Name Role Phone Fabienne Beasley MD Primary Care Provider [phone] Reason for Visit * Auth/Cert (Routine) Specialty Diagnoses / Procedures Referred By Contac t Referred To Contact Diagnoses Primary osteoarthritis of right hip Primary osteoarthritis of right hip [M16.11] Procedures IN ARTHRP ACETBLR/PROX FEM PROSTC AGRFT/ALGRFT ARTHROPLASTY TOTAL HIP - CAPRICE ROBOTIC ARM - DEVIN-RIGHT Referral ID Status Reason Start Date Expiration Date Visits Re quested Visits Authorized [id number] 1 1 Encounter Details Date Type Department Care Team (Late st Contact Info) Description 12/31/2024 Hospital Encounter Operating Room [address] [place] [address] Bert Fierro MD [address] [facility] [address] [place] [address] Social History Tobacco Use Types Packs/Day Years [...] on file Legal Sex Female 6:32 PM [employer] Gender Identity Not on file Sexual Orientation Not on file documented as of this encounter Functional Status documented as of this encounter Plan of Treatment Not on file documented as of this encounter Visit Diagnoses Diagnosis Primary osteoarthritis of right hip- Primary documented in this encounter Admitting Diagnoses Diagnosis Primary osteoarthritis of right hip documented in this encounter Care Teams Entry Level Finance Relationship Specialty Start Date End Date Fabienne Beasley MD PCP - General Family Medicine 09/13/20 documented as of this encounter
--- OUTSIDE RECORDS SUMMARY | 2025-06-08 12:41 | XMS_ITS | Clinical Summary ---
Author Organization [facility] Address [address] [place] [address] Care Team Providers Care Internal Revenue Service Agent Name Role Phone Fabienne Beasely MD Primary Care Provider [phone] Allergies No known active allergies Medications gabapentin [...] 1 tablet (100 mcg total) by mouth beater out before breakfast 0 Active omega-3 fatty acids-fish oil 300-1,000 mg capsule Take 2 capsules (2 g total) by mouth every morning Active cholecalciferol , vitamin D3, (VITAMIN D3 ORAL) Take 1 capsule by mouth every morning Active multivit-minera y-eyed-ldsbmu tablet Take 1 tablet by mouth every morning Active Active Problems Problem Noted Date Diagnosed Date Primary osteoarthritis of right hip 09/10/2024 Hip pain 09/29/2020 Encounters Date Type Department Care Team Description 05/06/2025 1:10 PM CDT - 05/06/2025 11:59 PM CDT Hospital Encounter [facility] [address] [place] [address] Abnormal result of other cardiovascular function study [...] on file Legal Sex Female 6:32 PM HEALTH AND NUTRITION SPECIALIST Gender Identity Not on file Sexual Orientation Not on file Obstetrics History Last Filed Vital Signs Vital Sign Reading Time Taken Comments Blood Pressure 126/78 05/06/2025 1:25 PM CDT Pulse 72 05/06/2025 1:25 PM CDT Temperature 36.7 C (98.1 F) 09/29/2024 1:53 PM HEALTH AND NUTRITION SPECIALIST Respiratory Rate 13 05/06/2025 1:25 PM CDT Oxygen Saturation 100% 12/15/2024 2:30 PM HEALTH AND NUTRITION SPECIALIST Inhaled Oxygen Concentration - - Weight 89.8 kg (198 lb) 12/15/2024 2:33 PM HEALTH AND NUTRITION SPECIALIST Height 152.4 cm (5') 12/15/2024 2:33 PM HEALTH AND NUTRITION SPECIALIST Body Mass Index 38.67 12/15/2024 2:33 PM HEALTH AND NUTRITION SPECIALIST Plan of Treatment Health Maintenance Due Date Last Done Comments Depression Screening 1945 Fall Risk Assessment 1945 Hepatitis C Screening 1945 Osteoporosis Screening-Bone Density Scan 1945 DTaP/Tdap/Td Vaccine (1 - Tdap) 1958 Hepatitis B Screening 1965 Well Visit 65+ 2012 Zoster Vaccine (2 of 3) 06/04/2013 04/09/2013 Pneumococcal vaccine 65+ (2 of 2 - PPSV23) 11/07/2019 11/07/2018 Influenza Vaccine (#1) 2025 12/16/2019 Procedures Procedure Name Priority Date/Time Associated Diagnosis [...] lt from Last 3 Months Insurance MEDICARE [facility] MEDICARE MEDICARE [facility] Member Subscriber Plan / Payer ( fective 2007-Present) Name:DemiCharlotteEmani J Relation to Subscriber:Self Name:Emani Simms Payer ID:[id number] (NAIC) Group ID:[id number] Type: [employer] Address: [address] [place] [id number] Care Teams Internal Revenue Service Agent Relationship Specialty Start Date End Date Fabienne Beasley MD PCP - General Family Medicine 09/13/20
--- OUTSIDE RECORDS SUMMARY | 2025-06-08 12:41 | XMS_ITS | Clinical Summary ---
Author Organization [facility] Address [address] [address] Phone Care Team Providers Care Automation Specialist Name Role Phone Fabienne Beasley MD Primary Care Provider [phone] Allergies No known active allergies Medications allopurinol [...] mouth every 4 hours as needed. Active [place]-3 Fatty Acids (FISH OIL PO) Take by [...] Recently Relevant to Health Maintenance Insurance MEDICARE Member Subscriber Plan / Payer (Ef fective for All Dates) Name:Emani Simms Member ID:[id number] Relation to Subscriber:Self Name:Emani Simms Subscriber ID:[id number] Payer ID:[id number] Group ID:Not on file Type:Not on file Address: [facility] [address] [facility] [address] [facility] [place] [address] [facility] Care Teams Automation Specialist Relationship Specialty Start Date End Date Fabienne Beasley MD [address] [place] [address] PCP - General Family Medicine 07/15/18
--- OUTSIDE RECORDS SUMMARY | 2025-06-08 12:41 | XMS_ITS | Referral Summary ---
Author Organization [facility] Address [address] [place] [address] Care Team Providers Care Band Scroll Saw Operator Name Role Phone Fabienne Beasley MD Primary Care Provider Encounters Date Type Department Care Team Description 05/06/2025 1:10 PM CDT - 05/06/2025 11:59 PM CDT Hospital Encounter [facility] [address] [place] [address] Abnormal result of other cardiovascular [...] 1 tablet (100 mcg total) by mouth optical laboratory mechanic before breakfast 0 Active omega-3 fatty acids-fish oil 300-1,000 mg capsule Take 2 capsules (2 g total) by mouth every morning Active cholecalciferol , vitamin D3, (VITAMIN D3 ORAL) Take 1 capsule by mouth every morning Active multivit-minera f-flgr-cdoxbw tablet Take 1 tablet by mouth every [...] on file Legal Sex Female 6:32 PM US ADMINISTRATIVE LAW JUDGE Gender Identity Not on file Sexual Orientation Not on file Last Filed Vital Signs Vital Sign Reading Time Taken Comments Blood Pressure 126/78 05/06/2025 1:25 PM CDT Pulse 72 05/06/2025 1:25 PM CDT Temperature 36.7 C (98.1 F) 09/29/2024 1:53 PM US ADMINISTRATIVE LAW JUDGE Respiratory Rate 13 05/06/2025 1:25 PM CDT Oxygen Saturation 100% 12/15/2024 2:30 PM US ADMINISTRATIVE LAW JUDGE Inhaled Oxygen Concentration - - Weight 89.8 kg (198 lb) 12/15/2024 2:33 PM US ADMINISTRATIVE LAW JUDGE Height 152.4 cm (5') 12/15/2024 2:33 PM US ADMINISTRATIVE LAW JUDGE Body Mass Index 38.67 12/15/2024 2:33 PM US ADMINISTRATIVE LAW JUDGE Plan of Treatment Not on file Procedures [...] agrees with it. Electronically signed by: Abe Pirest M.D. Sanford Gil DO IMG CT PROCEDURES Final Resu lt from Last 3 Months Insurance MEDICARE [facility] MEDICARE MEDICARE [facility] [employer] Member Subscriber Plan / Payer (Ef fective 2007-Present) Name:Emani Simms Relation to Subscriber:Self Name:Emani Simms Payer ID:[id number] (NAIC) Group ID:[id number] Type:[facility] Address: [address] [place] [id number] Care Teams Band Scroll Saw Operator Relationship Specialty Start Date End Date Fabienne Beasley MD PCP - General Family Medicine 09/13/20
--- NOTE | 2025-06-08 13:05 | ECG_ITS ---
Test Date: 2025-06-08 13:20:00 Measurements Intervals [place] Rate: 72 P: 0 VA: 0 QRS: -37 QRSD: 96 T: -1 QT: 367 QTc: 403 Interpretive Statements ECTOPIC ATRIAL RHYTHM MARKED LEFT AXIS DEVIATION [QRS AXIS < -30] LOW QRS VOLTAGE IN PRECORDIAL LEADS [QRS DEFLECTION < 1.0 mV IN CHEST LEADS] INCOMPLETE RIGHT BUNDLE BRANCH BLOCK [90+ ms QRS DURATION, TERMINAL R IN V1/V2, 40+ ms S IN I/aVL/V4/V5/V6] ABNORMAL ECG Compared to ECG 05/10/2025 06:08:35 HEART RATE IS REDUCED ,NO OTHER DIFFERENCE Electronically Signed On 06-09-2025 09:58:47 CDT by Curly Park M.D.
[2025-06-08 13:54] LABS: INR 1.4; Prothrombin Time 16.9 Seconds (11.1-14.7)
[2025-06-08 13:55] LABS: Partial Thromboplastin Time 32.0 Seconds (22.3-36.8)
== END 2025-06-08 12:32 | disposition home or self-care (01) ==
PROVIDERS: PCP Family Medicine; Visit Provider Urology
DX: Z01.818 Encounter for other preprocedural examination (principal); N20.0 Calculus of kidney; I51.9 Heart disease, unspecified; R94.31 Abnormal electrocardiogram [ECG] [EKG]
CPT/HCPCS: 36415; 85610; 85730; 87086; 93005

== ENCOUNTER 2025-06-12 00:32 | Day surgery (SDC) | payer MEDICARE, BC, SELFPAY ==
--- NOTE | 2025-05-21 09:19 | PM.HPGS ---
History of Present Illness History of Present Illness Consent: Risks, benefits, and alternatives have been discussed and questions answered. Patient agrees to proceed with procedure. Chief complaint: right renal stones Narrative: Emani Simms is a 79 year old female recently admitted [facility] in in April 2025 with a 16 mm obstructing right UPJ calculus and urinary tract infection she exhibited signs of true septic shock. After thorough management of her urinary tract infection she now presents for right ESWL. She is aware the risk including, but not limited to, need for additional procedures, hematuria perinephric hematoma. Review of Systems Review of Systems: All systems reviewed & are unremarkable except as noted in HPI and below PMFSH Past Medical History Medical History Sepsis Acute kidney injury Obstruction of right ureteropelvic junction (UPJ) due to stone Chronic renal insufficiency, stage III (moderate) Spinal stenosis of lumbar region Colon polyp Essential (primary) hypertension H/O: gout Hypothyroidism, unspecified Lumbar radiculopathy Lymphedema Pre-diabetes Primary osteoarthritis of right hip Surgical History Surgical History H/O colonoscopy with polypectomy (~06/2018) Family History Family History Mother Carcinoma of colon Mother Diabetes mellitus Mother Family history of arthritis Father Malignant neoplasm of prostate Sibling Hypertension Mother Hypertension Other Cerebrovascular accident Family history of coronary artery disease Family history of gout Family history of heart disease in male family member before age 55 Family history of malignant neoplasm Family history of tuberculosis Social History Social History Smoking status: Never smoker Second hand tobacco smoke exposure: No Alcohol intake: current Drinks per week: 1 Substance use: never Substance use type: does not use Do You Feel Safe in your Home?: Yes Lack of Transportation: No Lack of Food: Never True Current Housing: I Have Housing Concerned About Future Housing: No Difficulty Paying Gas/Electric Bills: No Difficulty Paying for Meds: No Currently Unemployed: No Education: Don't Know Difficulty w/ Childcare or Family Care: No Occupation/Education: retired Gender identity (if verbalized by the patient): Female Sexual Orientation (if Verbalized by the Patient): Straight or Heterosexual Spiritual care concerns: No Agree to blood products: Yes Meds Home Medications and Allergies Home Medications ?Medication ?Instructions ?Recorded ?Confirmed ?Type multivit with minerals-iron 18 1 tablet PO DAILY 09/02/20 05/18/25 History mg-folic ac 400 mcg-vit K 25 mcg tablet (Adults Multivitamin) cholecalciferol (vitamin D3) 25 25 mcg PO DAILY #30 caps 06/14/22 05/18/25 Rx mcg (1,000 unit) capsule allopurinol 100 mg tablet 100 mg PO DAILY #90 tabs 01/06/25 05/18/25 Rx losartan 50 mg tablet 50 mg PO DAILY #90 tabs 01/29/25 05/18/25 Rx gabapentin 300 mg capsule 300 mg PO .COMPLEX #120 caps 02/08/25 05/18/25 Rx levothyroxine 100 mcg tablet 100 mcg PO DAILY #90 tabs 03/20/25 05/18/25 Rx metoprolol succinate 25 mg 25 mg PO DAILY #30 tabs 04/12/25 05/18/25 Rx tablet,extended release 24 hr amoxicillin 875 mg-potassium 1 tablet PO Q12H #20 tabs 05/13/25 05/18/25 Rx clavulanate 125 mg tablet docusate sodium 100 mg capsule 100 mg PO Q12HR #15 caps 05/13/25 05/18/25 Rx meclizine 12.5 mg tablet 12.5 mg PO QID PRN dizziness #15 05/13/25 05/18/25 Rx tabs apixaban 5 mg tablet (Eliquis) 5 mg PO BID #60 tabs 05/15/25 05/18/25 Rx Allergies Allergy/AdvReac Type Severity Reaction Status Date / Time No Known Allergies Allergy Unknown Verified 05/18/25 13:56 Exam Const: General: no acute distress Resp: Effort & Inspection: normal respiratory effort GI: Inspection: non-distended GI Palp: No abdominal tenderness and No Guarding due to palpation present (GI) Auscultation: normal bowel sounds Assessment and Plan Assessment and plan (1) Obstruction of right ureteropelvic junction (UPJ) due to stone: Code(s): N20.1 - Calculus of ureter Status: Acute Assessment and Plan: Right ESWL
[2025-06-04 13:10] VITALS: BMI 40.0
--- NOTE | 2025-06-04 13:49 | PC.NURSE ---
Report to the Outpatient Waiting Room, entrance under the green pavilion located off [facility], at time ___6:30AM____ on date ___06/12/25____. Planned Procedure Time: ___8:30AM .? Time changes happen often and if your time is changed the preop area will call you the afternoon before. - You and your visitor will be asked to self-screen and do not enter if you have any COVID symptoms. Please call surgeon if you need to reschedule. - A mask is optional within the hospital at this time. Patients may have clear liquids (water, carbonated beverages, clear teas, apple juice) until 3 hours prior to surgery (5:30AM) with a maximum of 20 ounces. - No food from midnight until time of surgery and no smoking, or chewing tobacco (or any form of nicotine). No chewing gum, candy or mints. Take only the following medications with a SIP of water on the morning of surgery: ____GABAPENTIN, LEVOTHYROXINE DO NOT STOP ANY OF YOUR OTHER PRESCRIPTION MEDICATIONS PRIOR TO SURGERY EXCEPT THE FOLLOWING Hold all vitamins and supplements for 3 days per anesthesiologist.- LAST DOSE 06/08/25. Medications to discontinue per physician ___HOLD ELIQUIS PER DR BARRETO. Date to take last dose Please no make-up, nail sinhala, hairspray, perfume, deodorant, or body powder the day of surgery.? No jewelry (including any body piercings) or valuables the day of surgery, leave them at home.? Please take a shower or bath the night before, or the morning of, surgery with an antibacterial soap.? Wear comfortable, loose fitting clothing.? - Jewelry must be removed prior to entering the operating room.? Rings and piercings that are not removed may be cut off. - The hospital will not accept responsibility for valuables.? - Please leave all valuables, including medications, at home the day of surgery. If you are going home after surgery, a licensed courtesy van driver must drive you home.? - NO public transportation without another adult if you receive anesthesia. - We recommend that an adult stay with you for 24 hours following discharge. - We also recommend that you do not drive, make important decision, drink alcoholic beverages, or take any drugs that were not prescribed by your health care provider for at least 24 hours after your discharge time. Follow any additional instructions given to you from your surgeon. Telephone instructions given to ____PATIENT and asked if any additional questions and then verbalized understanding. Patient advised to call surgeon office or pre surgery nurse liaison [phone] if any additional questions.
[2025-06-12] VITALS (8 sets, daily range): BP systolic 101–122; BP diastolic 59–71; PULSE 67–72; RESP 14–20; TEMP 36.5–36.7; O2SAT 97–100
--- NOTE | ~2025-06-12 | XR_ITS ---
XR abdomen/kub 1V 06/12/2025 06:58 Indication: Preop ESWL Procedure: KUB Comparison: 05/08/2025 Findings: Bowel gas pattern nonobstructive. Moderate colonic fecal loading. There is a right internal ureteral stent in expected position. There are multiple right renal stones, largest in the renal pel vis measuring 1.7 cm. There is a proximal right ureteral stone. Impression: 1: Right nephrolithiasis. Proximal right ureteral stone at the L4 level. Reviewed, dictated and finalized at location B. Impression: 1: Right nephrolithiasis. Proximal right ureteral stone at the L4 level.
--- OUTSIDE RECORDS SUMMARY | 2025-06-12 00:35 | XMS_ITS | Referral Summary ---
Author Organization [facility] Address [address] [place] [address] Care Team Providers Care Ripsaw Operator Name Role Phone Fabienne Beasley MD Primary Care Provider Encounters Date Type Department Care Team Description 05/06/2025 1:10 PM CDT - 05/06/2025 11:59 PM CDT Hospital Encounter [facility] [address] [place] [address] Abnormal result of other cardiovascular [...] 1 tablet (100 mcg total) by mouth senior analytic consultant before breakfast 0 Active omega-3 fatty acids-fish oil 300-1,000 mg capsule Take 2 capsules (2 g total) by mouth every morning Active cholecalciferol , vitamin D3, (VITAMIN D3 ORAL) Take 1 capsule by mouth every morning Active multivit-minera q-lxsw-etviol tablet Take 1 tablet by mouth every [...] on file Legal Sex Female 6:32 PM OPERATORS SCHOOL MANAGER Gender Identity Not on file Sexual Orientation Not on file Last Filed Vital Signs Vital Sign Reading Time Taken Comments Blood Pressure 126/78 05/06/2025 1:25 PM CDT Pulse 72 05/06/2025 1:25 PM CDT Temperature 36.7 C (98.1 F) 09/29/2024 1:53 PM OPERATORS SCHOOL MANAGER Respiratory Rate 13 05/06/2025 1:25 PM CDT Oxygen Saturation 100% 12/15/2024 2:30 PM OPERATORS SCHOOL MANAGER Inhaled Oxygen Concentration - - Weight 89.8 kg (198 lb) 12/15/2024 2:33 PM OPERATORS SCHOOL MANAGER Height 152.4 cm (5') 12/15/2024 2:33 PM OPERATORS SCHOOL MANAGER Body Mass Index 38.67 12/15/2024 2:33 PM OPERATORS SCHOOL MANAGER Plan of Treatment Not on file Procedures [...] lt from Last 3 Months Insurance MEDICARE [facility] MEDICARE MEDICARE [facility] [employer] Member Subscriber Plan / Payer (Ef fective 2007-Present) Name:Emani Simms Relation to Subscriber:Self Name:Emani Simms Payer ID:[id number] (NAIC) Group ID:[id number] Type:[facility] Address: [address] [place] [phone] Care Teams Ripsaw Operator Relationship Specialty Start Date End Date Fabienne Beasley MD PCP - General Family Medicine 09/13/20
--- OUTSIDE RECORDS SUMMARY | 2025-06-12 00:35 | XMS_ITS | Continuity of Care Document ---
Author Organization [facility] Address [address] [facility] [address] [place] [address] Phone Care Team Providers Care Brown Stock Washer Name Role Phone Yonathan Vick MD, MD [...] tablet - Active Procedures Procedure Date [facility] BMI Documented Above Normal Limit F/U Pl an Doc Office/outpatient visit,[facility] 2023 Advance Directives Directive Yes / No Effective Date File Name No Information Encounters Encounter Description Practice Location Reason(s) For Visit Diagnoses Date Provider Providers Copied on Encounter [facility], [address], [id number], [place] tel:[phone] [facility] No Information 4 Nava miramontes. [address] [facility] [place] [address], [place], [place], [id number] , [place]. tel:[phone] Office/outpat ient visit,[facility], [address], [id number], [place] tel:[phone] [facility] right hip (chief complaint) Unilateral primary osteoarthritis , right hip 4 Nava miramontes. [address] [facility], [address], [place], [place], [id number] , [place]. tel: [phone] Referring Provider: Yonathan Morse, [address] [facility] [address] [facility], [place], [address]. tel:[phone] Office/outpat ient visit,[facility], [facility], [address] [facility] [address], [place], [id number], tel:[phone] [facility] Right hip (chief complaint) Pain in right hipIdiopathic aseptic necrosis of right femur 4 Elijah Mena. [address] [facility], [place] [address], [place], [place], [id number] , . tel: [phone] Referring Provider: Rajesh Lweis, [address] [facility] [address], [place], [address]. tel:[phone] Family History Family Member Type Diagnosis Age [...] tion(s) [place] Part [place] ANA [id number] K[place] Albaro morse [facility] [id number] Social History Type Description Quantity Date Captured [...] n, with posterior approach and location at [facility] were reviewed in depth, as was [...] on Dr. Yonathan Vick surgical schedule at [facility], as well as scheduled for an intraoffice presurgical evaluation. Prescription for Tylenol No. 4 with codeine will be sent to her pharmacy as she is intolerant of tramadol. She was advised that this is a one-time prescription to be filled to get her to surgery, and she will continue the use of diclofenac and gabapentin as needed. She will add aqab-uri-zpdemnc NSAIDs and analgesics, being advised not to consume more than 4000 mg of acetaminophen per day. She may initiate the use of topical products such as Voltaren gel or lidocaine patch. All questions were answered and concerns addressed.Dictation completed with [employer] software, grammatical variances and spelling errors may inadvertently occur. Related to Idiopathic aseptic necrosis of right femur Assessments Type Assessment Date No Information Patient Care Teams Name Effective Dates (start - stop) Status Members No Information
--- OUTSIDE RECORDS SUMMARY | 2025-06-12 00:35 | XMS_ITS | Clinical Summary ---
Author Organization [facility] Address [address] [place] [address] Care Team Providers Care Acid Patroller Name Role Phone Fabienne Beasley MD Primary Care Provider [phone] Allergies No known active allergies Medications gabapentin [...] 1 tablet (100 mcg total) by mouth software tester before breakfast 0 Active omega-3 fatty acids-fish oil 300-1,000 mg capsule Take 2 capsules (2 g total) by mouth every morning Active cholecalciferol , vitamin D3, (VITAMIN D3 ORAL) Take 1 capsule by mouth every morning Active multivit-minera j-gdbo-ixksmk tablet Take 1 tablet by mouth every morning Active Active Problems Problem Noted Date Diagnosed Date Primary osteoarthritis of right hip 09/10/2024 Hip pain 09/29/2020 Encounters Date Type Department Care Team Description 05/06/2025 1:10 PM CDT - 05/06/2025 11:59 PM CDT Hospital Encounter [facility] [address] [place] [address] Abnormal result of other cardiovascular function study [...] on file Legal Sex Female 6:32 PM FACILITY MAINTENANCE TECHNICIAN Gender Identity Not on file Sexual Orientation Not on file Obstetrics History Last Filed Vital Signs Vital Sign Reading Time Taken Comments Blood Pressure 126/78 05/06/2025 1:25 PM CDT Pulse 72 05/06/2025 1:25 PM CDT Temperature 36.7 C (98.1 F) 09/29/2024 1:53 PM FACILITY MAINTENANCE TECHNICIAN Respiratory Rate 13 05/06/2025 1:25 PM CDT Oxygen Saturation 100% 12/15/2024 2:30 PM FACILITY MAINTENANCE TECHNICIAN Inhaled Oxygen Concentration - - Weight 89.8 kg (198 lb) 12/15/2024 2:33 PM FACILITY MAINTENANCE TECHNICIAN Height 152.4 cm (5') 12/15/2024 2:33 PM FACILITY MAINTENANCE TECHNICIAN Body Mass Index 38.67 12/15/2024 2:33 PM FACILITY MAINTENANCE TECHNICIAN Plan of Treatment Health Maintenance Due Date [...] lt from Last 3 [place] [address] [facility] MEDICARE MEDICARE [facility] Member Subscriber Plan / Payer ( fective 2007-Present) Name:DemiCharlotteEmani J Relation to Subscriber:Self Name:Emani Simms Payer ID:[id number] (NAIC) Group ID:[id number] Type: [employer] Address: [address] [place] [id number] Care Teams Acid Patroller Relationship Specialty Start Date End Date Fabienne Beasley MD PCP - General Family Medicine 09/13/20
--- OUTSIDE RECORDS SUMMARY | 2025-06-12 00:35 | XMS_ITS | Encounter Summary ---
Author Organization [facility] Address [address] [place] [address] Care Team Providers Care Commercial Finance Manager Name Role Phone Fabienne Beasley MD Primary Care Provider [phone] Reason for Visit * Auth/Cert (Routine) Specialty Diagnoses / Procedures Referred By Contac t Referred To Contact Diagnoses Primary osteoarthritis of right hip Primary osteoarthritis of right hip [M16.11] Procedures SC ARTHRP ACETBLR/PROX FEM PROSTC AGRFT/ALGRFT ARTHROPLASTY TOTAL HIP - CAPRICE ROBOTIC ARM - DEVIN-RIGHT Referral ID Status Reason Start Date Expiration Date Visits Re quested Visits Authorized [id number] 1 1 Encounter Details Date Type Department Care Team (Late st Contact Info) Description 12/31/2024 Hospital Encounter [facility] Operating Room [address] [place] [address] Bert Fierro MD [address] [facility] [address] [place] [address] Social History Tobacco Use Types Packs/Day Years [...] on file Legal Sex Female 6:32 PM RADIO REPAIRMAN Gender Identity Not on file Sexual Orientation Not on file documented as of this encounter Functional Status documented as of this encounter Plan of Treatment Not on file documented as of this encounter Visit Diagnoses Diagnosis Primary osteoarthritis of right hip- Primary documented in this encounter Admitting Diagnoses Diagnosis Primary osteoarthritis of right hip documented in this encounter Care Teams Commercial Finance Manager Relationship Specialty Start Date End Date Fabienne Beasley MD PCP - General Family Medicine 09/13/20 documented as of this encounter
--- OUTSIDE RECORDS SUMMARY | 2025-06-12 00:35 | XMS_ITS | Clinical Summary ---
Author Organization [facility] Address [address] [address] Phone Care Team Providers Care Survey Chief Name Role Phone Fabienne Beasley MD Primary Care Provider [phone] Allergies No known active allergies Medications allopurinol [...] mouth every 4 hours as needed. Active [place]-3 Fatty Acids (FISH OIL PO) Take by [...] Recently Relevant to Health Maintenance Insurance MEDICARE [facility] Care Teams Survey Chief Relationship Specialty Start Date End Date Fabienne Beasley MD [address] [place] [address] PCP - General Family Medicine 07/15/18
--- NOTE | 2025-06-12 06:04 | WPDHPUPDATE1 ---
History and Physical Update Update Date/Time: 06/12/25 06:04 History and Physical has been reviewed, including an updated exam of the patient. There are NO changes in the patient's condition. Risks, benefits, and alternatives have been discussed and questions answered. Patient agrees to proceed with procedure. Pt. has chronic UTI. Was started on culture-directed abx. 24-hours prior to procedure today.
[2025-06-12] MEDS: LACTATED RINGERS 1,000 ML 30 ML IV CONT (07:00)
--- NOTE | 2025-06-12 07:04 | WPDANESEPPF ---
Anes - Initial Pre Proc Eval Procedure: Operation Date: 06/12/25 08:30 Proposed Procedures p Right Extracorporeal Shock Wave Lithotripsy - Antonio Mcgill MD Date/Time: 06/12/25 07:04 Surgeon: Antonio Mcgill MD Pre Op Diagnosis: right renal stones Patient Data Age: 79 Gender: F Height: 1.52 m Weight: 93 kg Allergies Allergy/AdvReac Type Severity Reaction Status Date / Time No Known Allergies Allergy Unknown Verified 06/12/25 06:58 Home Medications ?Medication ?Instructions ?Recorded ?Confirmed ?Type multivit with minerals-iron 18 1 tablet PO DAILY 09/02/20 06/12/25 History mg-folic ac 400 mcg-vit K 25 mcg tablet (Adults Multivitamin) cholecalciferol (vitamin D3) 25 25 mcg PO DAILY #30 caps 06/14/22 06/12/25 Rx mcg (1,000 unit) capsule allopurinol 100 mg tablet 100 mg PO DAILY #90 tabs 01/06/25 06/12/25 Rx losartan 50 mg tablet 50 mg PO DAILY #90 tabs 01/29/25 06/12/25 Rx gabapentin 300 mg capsule 300 mg PO .COMPLEX #120 caps 02/08/25 06/12/25 Rx levothyroxine 100 mcg tablet 100 mcg PO DAILY #90 tabs 03/20/25 06/12/25 Rx metoprolol succinate 25 mg 25 mg PO DAILY #30 tabs 04/12/25 06/12/25 Rx tablet,extended release 24 hr apixaban 5 mg tablet (Eliquis) 5 mg PO BID #60 tabs 05/15/25 06/12/25 Rx acetaminophen 650 mg 1,300 mg PO Q12H PRN pain 06/04/25 06/12/25 History tablet,extended release (8 Hour Pain Reliever) amoxicillin 875 mg-potassium tablet PO Q12H 06/12/25 History clavulanate 125 mg tablet Laboratory Tests 06/12/25 06:48 PT Pending INR Pending Patient hx anesthesia problems: none Family hx anesthesia problems: none Results Review: All pre-operative results and documents have been reviewed as part of the pre-operative evaluation. [facility] Past Medical History Medical History Sepsis Acute kidney injury Obstruction of right ureteropelvic junction (UPJ) due to stone Chronic renal insufficiency, stage III (moderate) Spinal stenosis of lumbar region Colon polyp Essential (primary) hypertension H/O: gout Hypothyroidism, unspecified Lumbar radiculopathy Lymphedema Pre-diabetes Primary osteoarthritis of right hip Surgical History Surgical History H/O colonoscopy with polypectomy (~06/2018) Family History Family History Mother Carcinoma of colon Mother Diabetes mellitus Mother Family history of arthritis Father Malignant neoplasm of prostate Sibling Hypertension Mother Hypertension Other Cerebrovascular accident Family history of coronary artery disease Family history of gout Family history of heart disease in male family member before age 55 Family history of malignant neoplasm Family history of tuberculosis Social History Social History Smoking status: Never smoker Second hand tobacco smoke exposure: No Alcohol intake: current Drinks per week: 1 Substance use: never Substance use type: does not use Do You Feel Safe in your Home?: Yes Lack of Transportation: No Lack of Food: Never True Current Housing: I Have Housing Concerned About Future Housing: No Difficulty Paying Gas/Electric Bills: No Difficulty Paying for Meds: No Currently Unemployed: No Education: Don't Know Difficulty w/ Childcare or Family Care: No Living arrangements: alone Occupation/Education: retired Gender identity (if verbalized by the patient): Female Sexual Orientation (if Verbalized by the Patient): Straight or Heterosexual Spiritual care concerns: No Agree to blood products: Yes Anes - Eval Final PreProcedure Day of Procedure 06/12/25 07:04 Patient weight: morbidly obese Lungs: normal air movement Airway: Mallampati scale class II Neurological: alert and oriented Last oral intake: >/= 8 hours ASA classification: III Emergent: no Anesthetic plan: proceed Anesthesia type and monitoring: general LMA and standard monitoring Results Review: All pre-operative results and documents have been reviewed as part of the pre-operative evaluation. HTN, hyperlipidemia, BMI 40, CKD, hx of septic stone 04/2025, now resolved and pt is an outpt, feeling well. Informed Consent: The patient's anesthetic plan and its attendant risks and benefits were discussed with the patient/family/POA. Questions were solicited and answers provided to the satisfaction of the patient/family/POA.
[2025-06-12 07:13] LABS: INR 1.1; Prothrombin Time 14.4 Seconds (11.1-14.7)
[2025-06-12] MEDS: ceFAZolin 2 GM in SODIUM CHLORIDE 0.9% IV 50 ML 100 ML IVPB (07:43)
--- NOTE | 2025-06-12 07:57 | W.PM.PROC2 ---
Procedure Note - Detailed Date of Procedure 06/12/25 Pre-op Diagnosis Right renal stones Post-op Diagnosis Same Procedure Performed Right ESWL Surgeon Antonio Mcgill MD Anesthesia General Description of Procedure The patient was brought to the operative suite where she was placed in the supine position on the Dornier lithotripsy table. The focal point of the lithotripter was placed at a 1cm right renal pelvic calculus. A total of 2500 shocks were delivered at a power setting of 4. There appeared to be good fragmentation of the stone. The patient tolerated the procedure well and was taken to the recovery room in good condition. Drains No Packing No Pathology None sent Complications No immediate complications Disposition PACU
== END 2025-06-12 10:19 | disposition home or self-care (01) ==
PROVIDERS: PCP Family Medicine; Visit Provider Urology
PROC: (CPT 50590; principal; 2025-06-12 08:30)
DX: N20.0 Calculus of kidney (principal); E66.01 Morbid (severe) obesity due to excess calories; Z68.38 Body mass index [BMI] 38.0-38.9, adult; Z79.01 Long term (current) use of anticoagulants
CPT/HCPCS: 50590; 36415; 74018; 85610; J0690; J2003; J2250; J2405; J2704; J3010; J7120

== ENCOUNTER 2025-06-26 14:10 | Outpatient (CLI) | payer MEDICARE, BC, SELFPAY ==
--- NOTE | ~2025-06-26 | XR_ITS ---
XR abdomen/kub 1V 06/26/2025 14:38 Indication: Ureteral stent Procedure: KUB Comparison: 06/12/2025 Findings: Bowel gas pattern nonobstructive. Moderate colonic fecal loading. There is right internal u reteral stent. There is a right renal stone located centrally. There is a circular calcification left upper abdomen, possibly splenic artery aneurysm. Severe lumbar spondylosis with levoscoliosis. 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 Moderate osteoarthritis of the left hip. Impression: 1: Right renal stones located over the expected location of the renal pelvis, largest measuring 1.7 c m. There is an additional stone overlying the coil from right internal ureteral stent located in the renal pelvis. Reviewed, dictated and finalized at location A. Impression: 1: Right renal stones located over the expected location of the renal pelvis, l argest measuring 1.7 cm. There is an additional stone overlying the coil from r ight internal ureteral stent located in the renal pelvis.
--- OUTSIDE RECORDS SUMMARY | 2025-06-26 14:18 | XMS_ITS | Clinical Summary ---
Author Organization [facility] Address [address] [address] Phone Care Team Providers Care Supervisor Assembly Stock Name Role Phone Fabienne Beasley MD Primary Care Provider [phone] Allergies No known active allergies Medications allopurinol [...] mouth every 4 hours as needed. Active [place]-3 Fatty Acids (FISH OIL PO) Take by [...] (Adult) (1 - 1-dose 75+ series) 2022 SARS-COV-2 Immunization (1 - 2023- season) 2024 Influenza Immunization (#1) 2025 Colonoscopy Discontinued 07/10/2018 Colorectal Cancer Screening Discontinued Cologuard Discontinued Hepatitis B Immunization Aged Out No longer eligible based on patient's age to complete this topic Human Papillomavirus (HPV) Immunization Aged Out No longer eligible b ased on patient's age to complete this topic [...] Recently Relevant to Health Maintenance Insurance MEDICARE [facility] Care Teams Supervisor Assembly Stock Relationship Specialty Start Date End Date Fabienne Beasley MD [address] [place] [address] PCP - General Family Medicine 07/15/18
--- OUTSIDE RECORDS SUMMARY | 2025-06-26 14:18 | XMS_ITS | Clinical Summary ---
Author Organization [facility] Address [address] [place] [address] Care Team Providers Care Games Manager Name Role Phone Fabienne Beasley MD Primary Care Provider [phone] Allergies No known active allergies Medications gabapentin [...] tablet (100 mcg total) by mouth early years teacher before breakfast 0 Active omega-3 fatty acids-fish oil 300-1,000 mg capsule Take 2 capsules (2 g total) by mouth every morning Active cholecalciferol , vitamin D3, (VITAMIN D3 ORAL) Take 1 capsule by mouth every morning Active multivit-minera [id number]-[id number] tablet Take 1 tablet by mouth every morning Active Active Problems Problem Noted Date Diagnosed Date Primary osteoarthritis of right hip 09/10/2024 Hip pain 09/29/2020 Encounters Date Type Department Care Team Description 05/06/2025 1:10 PM CDT - 05/06/2025 11:59 PM CDT Hospital Encounter [facility] [address] [place] [address] Abnormal result of other cardiovascular function study [...] on file Legal Sex Female 6:32 PM 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 Gender Identity Not on file Sexual Orientation Not on file Obstetrics History Last Filed Vital Signs Vital Sign Reading Time Taken Comments Blood Pressure 126/78 05/06/2025 1:25 PM CDT Pulse 72 05/06/2025 1:25 PM CDT Temperature 36.7 C (98.1 F) 09/29/2024 1:53 PM 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 Respiratory Rate 13 05/06/2025 1:25 PM CDT Oxygen Saturation 100% 12/15/2024 2:30 PM 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 Inhaled Oxygen Concentration - - Weight 89.8 kg (198 lb) 12/15/2024 2:33 PM 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 Height 152.4 cm (5') 12/15/2024 2:33 PM 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 Body Mass Index 38.67 12/15/2024 2:33 PM 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 Plan of Treatment Health Maintenance Due Date [...] lt from Last 3 Months Insurance MEDICARE [facility] MEDICARE MEDICARE [facility] Member Subscriber Plan / Payer ( fective 2007-Present) Name:DemiCharlotteEmani J Relation to Subscriber:Self Name:Emani Simms Payer ID:[id number] (NAIC) Group ID:[id number] Type: [employer] Address: [address] [place] [id number] Care Teams Games Manager Relationship Specialty Start Date End Date Fabienne Beasley MD PCP - General Family Medicine 09/13/20
--- OUTSIDE RECORDS SUMMARY | 2025-06-26 14:18 | XMS_ITS | Referral Summary ---
Author Organization [facility] Address [address] [place] [address] Care Team Providers Care Parachute Manufacturing Supervisor Name Role Phone Fabienne Beasley MD Primary Care Provider Encounters Date Type Department Care Team Description 05/06/2025 1:10 PM CDT - 05/06/2025 11:59 PM CDT Hospital Encounter [facility] [address] [place] [address] Abnormal result of other cardiovascular [...] 1 tablet (100 mcg total) by mouth community affairs manager before breakfast 0 Active omega-3 fatty acids-fish oil 300-1,000 mg capsule Take 2 capsules (2 g total) by mouth every morning Active cholecalciferol , vitamin D3, (VITAMIN D3 ORAL) Take 1 capsule by mouth every morning Active multivit-minera d-viyb-yqutkp tablet Take 1 tablet by mouth every [...] on file Legal 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 Gender Identity Not on file Sexual Orientation Not on file Last Filed Vital Signs Vital Sign Reading Time Taken Comments Blood Pressure 126/78 05/06/2025 1:25 PM CDT Pulse 72 05/06/2025 1:25 PM CDT Temperature 36.7 C (98.1 F) 09/29/2024 1:53 PM ROUTE RETURNER Respiratory Rate 13 05/06/2025 1:25 PM CDT Oxygen Saturation 100% 12/15/2024 2:30 PM ROUTE RETURNER Inhaled Oxygen Concentration - - Weight 89.8 kg (198 lb) 12/15/2024 2:33 PM ROUTE RETURNER Height 152.4 cm (5') 12/15/2024 2:33 PM ROUTE RETURNER Body Mass Index 38.67 12/15/2024 2:33 PM ROUTE RETURNER Plan of Treatment Not on file Procedures [...] lt from Last 3 Months Insurance MEDICARE [facility] MEDICARE MEDICARE [facility] [employer] Member Subscriber Plan / Payer (Ef fective 2007-Present) Name:Emani Simms Relation to Subscriber:Self Name:Emani Simms Payer ID:[id number] (NAIC) Group ID:[id number] Type:[facility] Address: [address] [place] [id number] Care Teams Parachute Manufacturing Supervisor Relationship Specialty Start Date End Date Fabienne Beasley MD PCP - General Family Medicine 09/13/20
--- OUTSIDE RECORDS SUMMARY | 2025-06-26 14:18 | XMS_ITS | Encounter Summary ---
Author Organization [facility] Address [address] [place] [address] Care Team Providers Care Checking Clerk Name Role Phone Fabienne Beasley MD Primary Care Provider [phone] Reason for Visit * Auth/Cert (Routine) Specialty Diagnoses / Procedures Referred By Contac t Referred To Contact Diagnoses Primary osteoarthritis of right hip Primary osteoarthritis of right hip [M16.11] Procedures SD ARTHRP ACETBLR/PROX FEM PROSTC AGRFT/ALGRFT ARTHROPLASTY TOTAL HIP - CAPRICE ROBOTIC ARM - DEVIN-RIGHT Referral ID Status Reason Start Date Expiration Date Visits Re quested Visits Authorized [id number] 1 1 Encounter Details Date Type Department Care Team (Late st Contact Info) Description 12/31/2024 Hospital Encounter [facility] Operating Room [address] [place] [address] Bert Fierro MD [address] [facility] [address] [place] [address] Social History Tobacco Use Types Packs/Day Years [...] on file Legal Sex Female 6:32 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
--- OUTSIDE RECORDS SUMMARY | 2025-06-26 14:18 | XMS_ITS | Continuity of Care Document ---
Author Organization [facility] Address [address] [facility] [address] [place] [address] Phone Care Team Providers Care Scrape Gatherer Name Role Phone Yonathan Vick MD, MD [...] tablet - Active Procedures Procedure Date Office/outpatient visit,[facility] BMI Documented Above Normal Limit F/U Pl an Doc Office/outpatient visit,[facility] 2023 Advance Directives Directive Yes / No Effective Date File Name No Information Encounters Encounter Description Practice Location Reason(s) For Visit Diagnoses Date Provider Providers Copied on Encounter [facility], [address], [id number], [place] tel:[phone] [facility] No Information 4 Nava miramontes. [address] [facility] [place] [address], [place], [place], [id number] , [place]. tel:[phone] Office/outpat ient visit,[facility], [address], [id number], [place] tel:[phone] [facility] right hip (chief complaint) Unilateral primary osteoarthritis , right hip 4 Nava miramontes. [address] [facility], [place], [place], [id number] , [place]. tel: [phone] Referring Provider: Yonathan Morse, [address] [facility] [address] [facility], [place], [address]. tel:[phone] Office/outpat ient visit,[facility], [facility], [address] [facility] [address], [place], [id number], tel:[phone] [facility] Right hip (chief complaint) Pain in right hipIdiopathic aseptic necrosis of right femur 4 Elijah Mena. [address] [facility], [place] [address], [place], [place], [id number] , . tel: [phone] Referring Provider: Rajesh Lewis, [address] [facility] [address], [place], [address]. tel:[phone] Family History Family Member Type Diagnosis Age [...] tion(s) [place] Part [place] ANA [id number] Kathe Dallas Albaro morse [facility] [id number] Social History Type Description Quantity Date Captured [...] n, with posterior approach and location at [facility] were reviewed in depth, as was [...] on Dr. Yonathan Vick surgical schedule at [facility], as well as scheduled for an intraoffice presurgical evaluation. Prescription for Tylenol No. 4 with codeine will be sent to her pharmacy as she is intolerant of tramadol. She was advised that this is a one-time prescription to be filled to get her to surgery, and she will continue the use of diclofenac and gabapentin as needed. She will add xhke-aie-uqofeky NSAIDs and analgesics, being advised not to consume more than 4000 mg of acetaminophen per day. She may initiate the use of topical products such as Voltaren gel or lidocaine patch. All questions were answered and concerns addressed.Dictation completed with SocialSign.in software, grammatical variances and spelling errors may inadvertently occur. Related to Idiopathic aseptic necrosis of right femur Assessments Type Assessment Date No Information Patient Care Teams Name Effective Dates (start - stop) Status Members No Information
== END 2025-06-26 14:11 | disposition home or self-care (01) ==
LOC: ANHLAB 14:15
PROVIDERS: PCP Family Medicine; Visit Provider Urology
DX: N20.0 Calculus of kidney (principal); Z96.0 Presence of urogenital implants
CPT/HCPCS: 74018

== ENCOUNTER 2025-07-20 13:14 | Outpatient (CLI) | payer MEDICARE, BC, SELFPAY ==
--- NOTE | ~2025-07-20 | XR_ITS ---
EXAMINATION: XR abdomen/kub 1V DATE: 07/20/2025 13:47 INDICATION: Right renal stone. Checkup TECHNIQUE: A supine view of the abdomen on 2 radiographs was obtained. COMPARISON: 06/26/2025 FINDINGS: Large amount of stool in nondilated large bowel. Small amount of air in nondilated small bowel. End-stage degenerative change in the right hip with possible avascular necrosis in the right femoral head. Bones appear osteopenic. Moderate degenerative change in the left hip. Grossly stable location of the right-sided double-J ureteral stent. Grossly stable right renal stones, largest measures 1.7 cm. There is a circular calcification in the left upper abdomen similar to the prior study possibly a splenic artery aneurysm. Since degenerative change in the spine similar to the prior study. IMPRESSION: 1. Grossly stable appearance of the right-sided double-J ureteral stent. 2. Grossly stable right renal stones, largest measures 1.7 cm. 3. Large amount of stool. 4. Possible avascular necrosis in the right femoral head with severe degenerative change about the right hip. The findings are similar to the prior study. If of concern, consider an MRI for further assessment. Reviewed, dictated and finalized at location Q. IMPRESSION: 1. Grossly stable appearance of the right-sided double-J ureteral stent. 2. Grossly stable right renal stones, largest measures 1.7 cm. 3. Large amount of stool. 4. Possible avascular necrosis in the right femoral head with severe degenerati ve change about the right hip. The findings are similar to the prior study. If of concern, consider an MRI for further assessment.
--- OUTSIDE RECORDS SUMMARY | 2025-07-20 13:22 | XMS_ITS | Clinical Summary ---
Author Organization [facility] Address [address] [place] [address] Care Team Providers Care Electronics Engineering Technician Name Role Phone Fabienne Beasley MD Primary Care Provider [phone] Allergies No known active allergies Medications gabapentin [...] 1 tablet (100 mcg total) by mouth postdoctoral scientist before breakfast 0 Active omega-3 fatty acids-fish oil 300-1,000 mg capsule Take 2 capsules (2 g total) by mouth every morning Active cholecalciferol , vitamin D3, (VITAMIN D3 ORAL) Take 1 capsule by mouth every morning Active multivit-minera i-tvgz-obyumg tablet Take 1 tablet by mouth every morning Active Active Problems Problem Noted Date Diagnosed Date Primary osteoarthritis of right hip 09/10/2024 Hip pain 09/29/2020 Encounters Date Type Department Care Team Description 07/14/2025 Orders Only [facility] Orthopaedic Surgery [address] [facility] [address] [place] [address] Bert Fierro MD Primary osteoarthritis of right hip (Primary Dx); Pre-op evaluation 05/06/2025 1:10 PM CDT - 05/06/2025 11:59 PM CDT Hospital Encounter [facility]) [address] [place] [address] Abnormal result of other cardiovascular function study [...] on file Legal Sex Female 6:32 PM 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 Gender Identity Not on file Sexual Orientation Not on file Obstetrics History Last Filed Vital Signs Vital Sign Reading Time Taken Comments Blood Pressure 126/78 05/06/2025 1:25 PM CDT Pulse 72 05/06/2025 1:25 PM CDT Temperature 36.7 C (98.1 F) 09/29/2024 1:53 PM 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 Respiratory Rate 13 05/06/2025 1:25 PM CDT Oxygen Saturation 100% 12/15/2024 2:30 PM 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 Inhaled Oxygen Concentration - - Weight 89.8 kg (198 lb) 12/15/2024 2:33 PM 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 Height 152.4 cm (5') 12/15/2024 2:33 PM 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 Body Mass Index 38.67 12/15/2024 2:33 PM 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 Plan of Treatment Upcoming Encounters Date Type Department Care Team (Latest Contact Info) Description 08/14/2025 7:55 AM CDT Hospital Encounter [facility] Operating Room [address] [place] [address] Bert Fierro MD [address] [facility] [address] [place] [address] 08/14/2025 7:55 AM CDT Anesthesia Event [facility] Operating Room [address] [address] Dona Freeman, LATESHA [address] [facility] [phone] [place] [address] 08/14/2025 7:55 AM CDT - 08/14/2025 10:30 AM CDT Surgery [facility] Operating Room [address] [address] Bert Fierro MD [address] [facility] [address] [place] [address] ARTHROPLASTY TOTAL HIP - CAPRICE ROBOTIC ARM - DEVIN-RIGHT Scheduled Procedures Name Priority Associated Diagnoses Date/Ti me ARTHROPLASTY TOTAL HIP - CAPRICE ROBOTIC ARM - DEVIN Primary osteoarthritis of right hip 08/14/2025 7:55 AM CDT Health Maintenance Due Date Last Done Comments Depression Screening 1945 Fall Risk Assessment 1945 Hepatitis C Screening 1945 Osteoporosis Screening-Bone Density Scan 1945 DTaP/Tdap/Td Vaccine (1 - Tdap) 1958 Hepatitis B Screening 1965 Well Visit 65+ 2012 Zoster Vaccine (2 of 3) 06/04/2013 04/09/2013 Pneumococcal vaccine 65+ (2 of 2 - PCV20 or PCV21) 11/07/2018 Influenza Vaccine (#1) 2025 12/16/2019 Procedures [...] Last 3 Months Insurance MEDICARE [facility] MEDICARE MEDICARE [facility] Address: [address] [place] [address] Care Teams Electronics Engineering Technician Relationship Specialty Start Date End Date Fabienne Beasley MD PCP - General Family Medicine 09/13/20
--- OUTSIDE RECORDS SUMMARY | 2025-07-20 13:22 | XMS_ITS | Clinical Summary ---
Author Organization [facility] Address [address] [address] Phone Care Team Providers Care Leather Coverer Name Role Phone Fabienne Beasley MD Primary Care Provider [phone] Allergies No known active allergies Medications allopurinol [...] mouth every 4 hours as needed. Active [place]-3 Fatty Acids (FISH OIL PO) Take by [...] Recently Relevant to Health Maintenance Insurance MEDICARE [facility] Care Teams Leather Coverer Relationship Specialty Start Date End Date Fabienne Beasley MD [address] [place] [address] PCP - General Family Medicine 07/15/18
== END 2025-07-20 13:15 | disposition home or self-care (01) ==
PROVIDERS: PCP Family Medicine; Visit Provider Urology
DX: N20.0 Calculus of kidney (principal)
CPT/HCPCS: 74018